=== PATIENT | female | born 1985 | race Caucasian/White ===

== ENCOUNTER 2017-02-05 12:54 | Emergency (ER) | payer MEDICAID ==
[~2017-02-05] VITALS: Ht 162.6 cm; Wt 63.5 kg
[~2017-02-05 12:54] MED LIST: ALPRAZOLAM0.5 M3 PO; ATIVAN1 M1 PO; BACTRIM DS 8001 TA1 PO; BACTRIM DS 8001 TAB PO; BACTROBAN2% TP; BENADRYL 25MG C25 MG PO; BUPROPION HYDR150 M3 PO; BUSPIRONE HCL10 MG PO; CEFZIL250 MG PO; CELEXA40 MG PO; CEPHALEXIN500 MG PO; CITALOPRAM HYDR20 MG PO; CLARITIN 10MG T10 MG OR; Cephalexin500 MG PO; HYDROCODONE/ACE1 TA5 PO; HYDROCODONE1 TABLET PO; IBUPROFEN400 MG PO; IMODIUM A-D2 MG PO; IRON TABLETS325 MG PO; K-Dur 2020 MEQ PO; LEXAPRO 20 MG T20 MG PO; LORTAB 5/500 501 TAB PO; MIRALAX(PO17 GM/1 PA PO; NICOTINE T21 MG/24 H TD; PHENERGAN 12.12.5 MG PR; PHENERGAN 25MG.25 M1 PO; PRENATAL VITAMI1 TA3 PO; SEROQUEL100 MG PO; SEROQUEL25 MG PO; SEROQUEL50 MG PO; TOPIRAMATE25 MG PO; VIBRAMYCIN 100100 MG PO; VISTARIL25 MG PO; WELLBUTRIN 75MG75 MG PO; ZITHROMAX Z PA250 MG PO
[2017-02-05 12:59] VITALS: BP 130/89
--- OUTSIDE RECORDS SUMMARY | 2017-02-05 14:06 | External Medical Summary Rpt ---
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 YC 13 10 10 PH DE IN 3 AR RE MA K 50 CY J 0 MG LL C TA BL ET SE 00 08 09 2 30 30 EA 18 MO Ac RO 31 -1 -[address] 68 SE ti QU 00 2- 0- 00 SI 10 S ve EL [address] 51 10 10 EP 25 0 PH HE AR N MG MA A CY TA BL OF ET CY NT HI AN A SE 00 08 08 2 30 30 EA 18 MO Ac RO 31 -1 -[address] 68 SE ti QU 00 2- 2- 00 SI 10 S ve EL [address] 51 10 10 EP 25 0 PH HE AR N MG MA A CY TA BL OF ET CY NT HI AN A 00 07 07 0 8. 2 EA 18 RU Ac 59 -2 -[address] 49 SH ti 10 7- 7- 0 SI 45 ve 34 20 20 DE NE 90 10 10 IL 1 PH C AR MA CY OF CY NT HI AN A SP 00 07 07 1 28 28 EA 18 CL Ac RI 55 -2 -[address] 44 AR ti NT 59 3- 3- 00 SI 74 KE ve EC 01 20 20 DE 65 10 10 DE 28 8 PH RE AR K DA MA J Y CY TA BL OF ET CY NT HI AN A 00 07 07 0 2. 1 EA 18 CL Ac 09 -1 -[address] 33 AR ti 37 3- 3- 0 SI 31 KE ve 16 20 20 DE 93 10 10 DE 3 PH RE AR K MA J CY OF CY NT HI AN A CI 65 05 07 2 30 30 EA 17 MO Ac TA 86 -1 -[address] 55 SE ti LO 20 1- 9- 00 SI 47 S ve LA [address] AM 70 10 10 EP 5 PH HE HB AR N R MA A 40 CY MG OF TA CY BL NT ET HI AN A BU 00 05 07 2 60 30 EA 17 MO Ac LA 18 -1 -[address] 55 SE ti OP 50 1- 9- 00 SI 48 S ve IO [address] N 50 10 10 EP HC 5 PH HE L AR N SR MA A CY 15 0 OF MG CY TA NT BL HI ET AN A SE 00 05 07 2 30 30 EA 17 MO Ac RO 31 -1 -[address] 55 SE ti QU 00 1- 9- 00 SI 49 S ve EL [address] 51 10 10 EP 25 0 PH HE AR N MG MA A CY TA BL OF ET CY NT HI AN A ME 59 07 07 3 1. 90 CL [address] 76 -0 -0 00 IN 92 RP ti OX 24 6- 6- 0 IC 75 EL ve YP 53 20 20 RO 70 10 10 PH GE GE [address] MA LD ER CY R ON E LL 15 C 0 MG /M L ME 50 07 07 0 10 5 CL 21 DUMAS Ac TR 11 -0 -0 .0 IN 92 RP ti ON 10 6- 6- 00 IC 76 EL ve ID 33 20 20 AZ 40 10 10 PH GE OL 1 AR RA E MA LD 50 CY R 0 MG LL C TA BL ET CI 55 03 06 2 30 30 EA 16 MO Ac TA 11 -0 -[address] 58 SE ti LO 10 2- 7- 00 SI 37 S ve LA [address] AM 40 10 10 EP 5 PH HE HB AR N R MA A 40 CY MG OF TA CY BL NT ET HI AN A BU 00 04 06 1 60 30 EA 17 MO Ac LA 18 -1 -[address] 14 SE ti OP 50 2- 7- 00 SI 92 S ve IO [address] N 56 10 10 EP HC 0 PH HE L AR N SR MA A CY 15 0 OF MG CY TA NT BL HI ET AN A SE 00 05 06 2 30 30 EA 17 MO Ac RO 31 -1 -[address] 55 SE ti QU 00 1- 7- 00 SI 49 S ve EL [address] 51 10 10 EP 25 0 PH HE AR N MG MA A CY TA BL OF ET CY NT HI AN A CI 55 05 05 2 30 30 EA 17 MO Ac TA 11 -1 -[address] 55 SE ti LO 10 1- 1- 00 SI 47 S ve LA [address] AM 40 10 10 EP 5 PH HE HB AR N R MA A 40 CY MG OF TA CY BL NT ET HI AN A BU 00 05 05 2 60 30 EA 17 MO Ac LA 18 -1 -[address] 55 SE ti OP 50 1- 1- 00 SI 48 S ve IO [address] N 56 10 10 EP HC 0 PH HE L AR N SR MA A CY 15 0 OF MG CY TA NT BL HI ET AN A SE 00 05 05 2 30 30 EA 17 MO Ac RO 31 -1 -[address] 55 SE ti QU 00 1- 1- 00 SI 49 S ve EL [address] 51 10 10 EP 25 0 PH HE AR N MG MA A CY TA BL OF ET CY NT HI AN A 00 04 04 0 15 3 EA 17 WE Ac 59 -3 -[address] 41 HR ti 10 0- 0- 00 SI 87 MA ve 34 20 20 DE N 90 10 10 II 1 PH I AR WI MA LL CY IA M OF E CY NT HI AN A CE 00 04 04 0 40 10 EA 17 WE Ac PH 09 -3 -[address] 41 HR ti AL 33 0- 0- 00 SI 88 MA ve EX 14 20 20 DE N IN 70 10 10 II 5 PH I 50 AR WI 0 MA LL MG CY IA M CA OF E PS UL CY E NT HI AN A 00 04 04 0 20 10 EA 17 WE Ac 90 -3 -[address] 41 HR ti 42 0- 0- 00 SI 89 MA ve 72 20 20 DE N 54 10 10 II 0 PH I AR WI MA LL CY IA M OF E CY NT HI AN A 00 04 04 0 14 7 EA 17 MO Ac 90 -2 -[address] 34 SE ti 42 6- 6- 00 SI 02 S ve [address] 54 10 10 EP 0 PH HE AR N MA A CY OF CY NT HI AN A CI 55 03 04 2 30 30 EA 16 MO Ac TA 11 -0 -[address] 58 SE ti LO 10 2- 2- 00 SI 37 S ve LA [address] AM 40 10 10 EP 5 PH HE HB AR N R MA A 40 CY MG OF TA CY BL NT ET HI AN A BU 00 04 04 0 60 30 EA 17 MO Ac SP 59 -1 -[address] 14 SE ti IR 10 2- 2- 00 SI 91 S ve ON [address] E 70 10 10 EP HC 1 PH HE L AR N 5 MA A MG CY TA OF BL ET CY NT HI AN A BU 00 04 04 1 60 30 EA 17 MO Ac LA 18 -1 -[address] 14 SE ti OP 50 2- 2- 00 SI 92 S ve IO [address] N 56 10 10 EP HC 0 PH HE L AR N SR MA A CY 15 0 OF MG CY TA NT BL HI ET AN A 00 04 04 0 16 2 EA 17 AL Ac 59 -0 -[address] 13 LR ti 10 9- 9- 00 SI 66 AN ve 34 20 20 DE 90 10 10 JR 1 PH AR CH MA AR CY LE S OF F CY NT HI AN A AM 60 04 04 0 10 5 EA 17 AL Ac OX 43 -0 -[address] 13 LR ti -C 20 9- 9- 00 SI 67 AN ve LA 06 20 20 0 DE V 50 10 10 JR 25 0 PH 0- AR CH 62 MA AR .5 CY LE S MG OF F /5 CY ML NT HI CAMARILLO AN S A CI 00 03 03 2 30 30 EA 16 MO Ac TA 37 -0 -[address] 58 SE ti LO 86 2- 2- 00 SI 37 S ve LA [address] AM 30 10 10 EP 5 PH HE HB AR N R MA A 40 CY MG OF TA CY BL NT ET HI AN A SE 00 03 03 0 30 30 EA 16 MO Ac RO 31 -0 -[address] 58 SE ti QU 00 2- 2- 00 SI 38 S ve EL [address] 81 10 10 EP 50 0 PH HE AR N MG MA A CY TA BL OF ET CY NT HI AN A FL 00 02 02 00 1. 1 WA 70 MC Ac UC 17 -1 -2 00 L- 58 KE ti ON 25 2- 6- 0 MA 29 NC ve AZ 41 20 20 RT 4 E OL 21 10 10 JR E 1 PH 15 AR WI 0 MA LL MG CY IA M TA #5 F BL 91 ET CI 55 01 01 00 30 30 WA 70 No Ac TA 11 -1 -2 .0 L- 55 t ti LO 10 9- 8- 00 MA 05 Av ve LA 34 20 20 RT 9 ai AM 43 10 10 la 0 PH bl HB AR e R MA 40 CY MG #5 91 TA BL ET CI 55 11 12 00 30 30 WA 70 No Ac TA 11 -2 -3 .0 L- 51 t ti LO 10 0- 1- 00 MA 42 Av ve LA 34 20 20 RT 4 ai AM 43 09 09 la 0 PH bl HB AR e R MA 40 CY MG #5 91 TA BL ET CI 55 11 12 00 30 30 EA 15 No Ac TA 11 -0 -[address] 02 t ti LO 10 6- 3- 00 SI 49 Av ve LA 34 20 20 DE ai AM 40 09 09 la 1 PH bl HB AR e R MA 40 CY MG OF CY TA NT BL HI ET AN A ME 50 11 11 00 14 7 EA 15 CL Ac TR 11 -0 -[address] 02 AR ti ON 10 6- 9- 00 SI 68 KE ve ID 33 20 20 DE AZ 40 09 09 DE OL 1 PH RE E AR K 50 MA J 0 CY MG OF TA CY BL NT ET HI AN A CI 55 11 11 00 15 30 EA 14 No Ac TA 11 -0 -[address] 99 t ti LO 10 4- 9- 00 SI 22 Av ve LA 34 20 20 DE ai AM 40 09 09 la 1 PH bl HB AR e R MA 40 CY MG OF CY TA NT BL HI ET AN A CI 00 10 11 00 15 30 GE 29 No Ac TA 37 -2 -0 .0 NO 32 t ti LO 86 0- 5- 00 A 3 Av ve LA 23 20 20 HE ai AM 30 09 09 AL la 5 TH bl HB CA e R RE 40 OF MG KE TA NT BL UC ET KY L 00 10 10 00 8. 2 EA 14 RU Ac 59 -0 -[address] 55 SH ti 10 5- 2- 0 SI 60 ve 34 20 20 DE NE 90 09 09 IL 1 PH C AR MA CY OF CY NT HI AN A RA 64 08 09 01 60 30 EA 13 CL Ac NI 67 -1 -[address] 82 AR ti TI 90 2- 4- 00 SI 29 KE ve DI 90 20 20 DE NE 60 09 09 DE 3 PH RE 15 AR K 0 MA J MG CY TA OF BL CY ET NT HI AN A 59 09 09 00 30 30 EA 14 CL Ac 63 -0 -[address] 16 AR ti 00 8- 4- 00 SI 88 KE ve 41 20 20 DE 69 09 09 DE 0 PH RE AR K MA J CY OF CY NT HI AN A RA 64 08 08 00 60 30 EA 13 CL Ac NI 67 -1 -[address] 82 AR ti TI 90 2- 7- 00 SI 29 KE ve DI 90 20 20 DE NE 60 09 09 DE 3 PH RE 15 AR K 0 MA J MG CY TA OF BL CY ET NT HI AN A 00 06 07 00 12 3 EA 13 CL Ac 40 -2 -[address] 29 AR ti 62 7- 6- 00 SI 54 KE ve 04 20 20 DE 11 09 09 DE 0 PH RE AR K MA J CY OF CY NT HI AN A NA 00 05 05 00 14 7 EA 12 WR Ac LA 09 -0 -[address] 64 IG ti OX 30 7- 1- 00 SI 93 HT ve EN 14 20 20 DE 90 09 09 AR 50 1 PH DY 0 AR C MG MA CY TA BL OF ET CY NT HI AN A CY 00 05 05 00 21 7 EA 12 WR Ac CL 59 -0 -[address] 64 IG ti OB 15 7- 1- 00 SI 92 HT ve EN 65 20 20 DE ZA 80 09 09 AR LA 1 PH DY IN AR C E MA 10 CY MG OF CY TA NT BL HI ET AN A 65 04 05 00 30 30 EA 12 CL Ac 16 -3 -[address] 55 AR ti 20 0- 7- 00 SI 44 KE ve 40 20 20 DE 61 09 09 DE 1 PH RE AR K MA J CY OF CY NT HI AN A 00 03 03 00 9. 3 EA 11 CL Ac 60 -1 -[address] 92 AR ti 35 6- 6- 0 SI 82 KE ve 14 20 20 DE 12 09 09 DE 1 PH RE AR K MA J CY OF CY NT HI AN A NI 00 03 03 00 20 10 EA 11 CL Ac TR 37 -1 -[address] 92 AR ti OF 83 6- 6- 00 SI 80 KE ve UR 42 20 20 DE AN 20 09 09 DE TO 1 PH RE IN AR K MA J MO CY NO -M OF CR CY NT 10 HI 0 AN MG A 60 02 03 00 18 6 EA 11 RI Ac 25 -2 -[address] 63 SH ti 80 6- 2- 00 SI 69 ER ve 23 20 20 0 DE 91 09 09 RI 6 PH CH AR AR MA D CY OF CY NT HI AN A 68 03 03 00 10 10 EA 11 MA Ac 82 -0 -[address] 70 RT ti 00 2- 2- 00 SI 80 IN ve 01 20 20 0 DE J 91 09 09 7 PH MA AR NG MA AN CY MD OF CY PS NT C HI AN A 59 01 02 00 30 30 EA 11 CL Ac 63 -2 -[address] 19 AR ti 00 2- 2- 00 SI 91 KE ve 41 20 20 DE 43 09 09 DE 5 PH RE AR K MA J CY OF CY NT HI AN A 59 02 02 00 30 30 EA 11 CL Ac 63 -0 -[address] 35 AR ti 00 5- 2- 00 SI 26 KE ve 41 20 20 DE 19 09 09 DE 0 PH RE AR K MA J CY OF CY NT HI AN A 60 02 03 00 18 4 EA 96 No Ac 25 -0 -[address] 71 t ti 80 8- 6- 00 SI 90 Av ve 23 20 20 0 DE ai 91 08 08 la 6 PH bl AR e MA CY OF CY NT HI AN A 60 02 03 00 18 5 EA 96 No Ac 25 -2 -[address] 91 t ti 80 2- 6- 00 SI 55 Av ve 23 20 20 0 DE ai 91 08 08 la 6 PH bl AR e MA CY OF CY NT HI AN A 49 02 03 00 20 5 EA 96 No Ac 88 -0 -[address] 71 t ti 40 8- 6- 00 SI 91 Av ve 77 20 20 DE ai 80 08 08 la 5 PH bl AR e MA CY OF CY NT HI AN A AZ 00 02 03 00 6. 6 EA 96 No Ac IT 09 -2 -[address] 91 t ti HR 37 2- 6- 0 SI 54 Av ve OM 14 20 20 DE ai YC 61 08 08 la IN 8 PH bl AR e 25 MA 0 CY MG OF TA CY BL NT ET HI AN A 49 01 03 00 90 30 EA 96 No Ac 88 -1 -[address] 36 t ti 40 5- 5- 00 SI 18 Av ve 77 20 20 DE ai 90 08 08 la 1 PH bl AR e MA CY OF CY NT HI AN A CY 00 01 03 00 30 10 EA 96 No Ac CL 59 -1 -[address] 36 t ti OB 13 5- 5- 00 SI 19 Av ve EN 25 20 20 DE ai ZA 60 08 08 la LA 1 PH bl IN AR e E MA 5 CY MG OF TA CY BL NT ET HI AN A NC 50 01 03 00 1. 1 TH 19 No Ac RE 41 -0 -2 00 ER 78 t ti NA 90 2- 4- 0 A 14 Av ve 42 20 20 CO 5 ai SY [address] 1 IN bl EM C e Vital Signs 04-17-2013 06:50 Name Value Interpretat Reference Comment ion Range Weight 144 [lb_av] Measured Weight 65.318 kg Measured Results Labs Lab Lab Date Result Refere Interp Status Commen Order Detail nces retati t Range on pH BldCo (04-17-2013 07:23) pH 7.37 7.35-7. complet BldCo 013 UNK 45 ed 07:23 CBC with AUTO DIFF (04-17-2013 04:05) WBC # 11.6 4.8-10. complet Bld 013 K/MM3 8 ed Auto 04:05 RBC # 3.74 4.2-5.4 complet Bld 013 M/mm3 ed Auto 04:05 Hgb 12.0 12.2-16 complet Bld-mCn 013 g/dL .2 ed c 04:05 Hct Fr 34.2 % 37.0-47 complet Bld 013 .0 ed 04:05 MCV RBC 91.3 fl 82.2-97 complet 013 .8 ed 04:05 MCH RBC 32.0 pg 27-31.2 complet Qn 013 ed Auto 04:05 MEAN 35.0 31.8-35 complet CORPUSC 013 g/dl .4 ed ULAR 04:05 HGB CONC RDW RBC 14.0 % 11.5-17 complet Auto 013 .5 ed 04:05 Platele 228 142-424 complet t Bld 013 K/mm3 ed Ql 04:05 Manual MEAN 7.9 fl 7.4-10. complet PLATELE 013 4 ed T 04:05 VOLUME Granulo 09-12-2 70.6 % 37.0-80 complet cytes 013 .0 ed Fr Bld 04:05 Auto LYMPH % -12-2 21.4 % 10-50.0 complet 013 ed 04:05 Monocyt 09-12-2 6.2 % 1.7-9.3 complet es Fr 013 ed Bld 04:05 Auto Eosinop 09-12-2 1.6 % 0.1-12. complet hil Fr 013 0 ed Bld 04:05 Auto Basophi 09-12-2 0.2 % 0.1-2.0 complet ls Fr 013 ed Bld 04:05 Auto Granulo 09-12-2 8.2 1.8-7.8 complet cytes # 013 K/mm3 ed Bld 04:05 Auto Lymphoc -12-2 2.5 0.7-4.5 complet ytes Fr 013 K/mm3 ed Bld 04:05 Auto Monocyt -12-2 0.7 0.1-1.0 complet es # 013 K/mm3 ed Bld 04:05 Auto Eosinop -12-2 0.2 0.0-0.4 complet hil # 013 K/mm3 ed Bld 04:05 Auto Basophi 09-12-2 0.0 0-0.2 complet ls # 013 K/MM3 ed Bld 04:05 Auto URINALYSIS/COMPLETE (04-17-2013 03:55) URINE 12-2 YELLOW YELLOW complet COLOR 013 ed 03:55 URINE 04-17-2 CLEAR CLEAR complet APPEARA 013 ed NCE 03:55 URINE 04-17-2 NEGATIV NEG complet GLUCOSE 013 E ed - 03:55 DIPSTIC K URINE 12-2 NEGATIV NEG complet BILIRUB 013 E ed IN - 03:55 DIPSTIC K URINE 12-2 NEGATIV NEG complet KETONE 013 E mg/dL ed 03:55 URINE 12-2 1.010 1.005-1 complet SPECIFI 013 UNK .030 ed C 03:55 GRAVITY URINE 12-2 TRACE-I NEG complet BLOOD 013 NTACT ed 03:55 URINE 04-17-2 5.5 UNK 5.0-8.5 complet PH 013 ed 03:55 URINE 09-12-2 NEGATIV NEG complet PROTEIN 013 E mg/dL ed - 03:55 DIPSTIC K URINE 04-17-2 0.2 NEG complet UROBILI 013 E.U./dL ed NOGEN - 03:55 DIPSTIC K URINE 04-17-2 NEGATIV NEG complet NITRATE 013 E ed - 03:55 DIPSTIC K URINE 04-17-2 NEGATIV NEG complet LEUK 013 E ed ESTERAS 03:55 E URINE 04-17-2 3-5 0 complet RBC 013 rbc/hpf ed 03:55 URINE -12-2 OCC O complet WBC 013 wbc/hpf ed 03:55 URINE --2 10-20 0-5 complet SQUAMOU 013 #/hpf ed S CELLS 03:55 URINE 04-17-2 OCC O complet BACTERI 013 ed A 03:55 URINE 04-17-2 OCC OCC complet MUCUS 013 ed 03:55 AMNISURE RUPTURE TEST (04-17-2013 03:27) AMNISUR 04-17- POSITIV complet E 013 E- ed 03:27 RUPTURE RUPTURE D TEST Procedures Procedure DOS Code Location Performer Comment RADIOLOGI 70008 PSYCHIATRIC EXAM 7 MEDICAL CHEST 2 IMAGING VIEWS ASS FRONTAL&L ATERAL RADIOLOGI 66384 PSYCHIATRIC 7 MEDICAL EXAMINATI [place] [address] [place] ALL ABDOMINAL 6 MEDICAL REAL IMAGING TIME ASS W/IMAGE LIMITED URNLS DIP 21255 [facility] CAROLYN 6 PHYSICIAN STONE STICK/TAB S GROUP PA-C SAMANTHA LET RGNT NON-AUTO W/O MICRSCP BLOOD 52039 [facility] COMPLETE INC INC AUTO&AUTO DIFRNTL WBC COLLECTIO 72150 [facility] N VENOUS 6 [facility] BLOOD INC INC VENIPUNCT URE COMPREHEN 86562 [facility] SIVE 6 [facility] METABOLIC INC INC PANEL RADEX 28781 [facility] SPINE 6 [facility] LUMBOSACR INC INC AL MINIMUM 4 VIEWS DRUG TST G0477 [facility] PRESUMP;C 6 [facility] PBL BEING INC INC READ DC OPT OBV ONLY SEDIMENTA 74962 [facility] TION RATE 6 [facility] RBC INC INC NON-AUTOM ATED RADEX 56950 [facility] [place] ALL SPINE 6 MEDICAL LUMBOSACR IMAGING AL 2/[address] [place] [address] [facility] ABDOMEN & 6 [facility] PELVIS INC INC W/O CONTRAST MATERIAL RADEX ABD 62790 [facility] COMPL 5 [facility] AQT ABD INC INC W/S/E/D VIEWS 1 VIEW CH RADEX 90413 [facility] ABDOMEN 1 5 [facility] INC INC ANTEROPOS TERIOR VIEW RADEX 07019 [facility] [place]AL[place] FIOR ABDOMEN 1 5 RADIOLOGY ANTEROPOS TERIOR VIEW AMB A0427 [facility] SERVICE 5 AMBULANCE AMBULANCE ALS SERVICE SERVICE EMERGENCY TRANSPORT LEVEL 1 GROUND A0425 [facility] MILEAGE 5 AMBULANCE AMBULANCE PER SERVICE SERVICE STATUTE MILE AMB A0427 [facility] SERVICE 5 AMBULANCE AMBULANCE ALS SERVICE SERVICE EMERGENCY TRANSPORT LEVEL 1 GROUND A0425 [facility] MILEAGE 5 AMBULANCE AMBULANCE PER SERVICE SERVICE STATUTE MILE INS TEMP 85800 JUAN GREGG NDJOSÉG 5 PHYSICIAN FOR BLADDER S, PLLC CATHETER SIMPLE RADIOLOGI 75871 [facility] [place] ALL C 5 MEDICAL EXAMINATI IMAGING ON CHEST ASS SINGLE VIEW FRONTAL AMB A0427 [facility] SERVICE 5 AMBULANCE AMBULANCE ALS SERVICE SERVICE EMERGENCY TRANSPORT LEVEL 1 GROUND A0425 [facility] MILEAGE 5 AMBULANCE AMBULANCE PER SERVICE SERVICE STATUTE MILE ANTIBODY 54752 [facility] HELICOBAC 5 [facility] [place] [address] [facility] INFUSION 5 [facility] THERAPY INC INC PROPHYLAX IS/DX EA HOUR LAPAROSCO 11959 [facility] EMANUEL PY W/PLMT 5 PHYSICIAN BROOKS S GROUP OCCLUSION DEVICE OVIDUCTS ANES IPER 67353 [facility] JANE LWR ABD 5 ANESTH W/LAPS OF THE TUBAL BLUE LIGATION/ TRANSECT GONADOTRO 13290 [facility] PIN 5 [facility] CHORIONIC INC INC QUALITATI VE BLOOD 97299 [facility] COUNT 5 [facility] COMPLETE INC INC AUTO&AUTO DIFRNTL WBC COLLECTIO 39590 [facility] N VENOUS 5 [facility] BLOOD INC INC VENIPUNCT URE BASIC 39660 [facility] METABOLIC 5 [facility] PANEL INC INC CALCIUM TOTAL REMOVAL 77464 [facility] EMANUEL NON-BIODE 5 PHYSICIAN BROOKS GRADABLE S GROUP DRUG DELIVERY IMPLANT RADEX 47283 [place] ANKLE 5 MEDICAL ALESHA COMPLETE IMAGING MINIMUM 3 ASS VIEWS INCISION 92210 JUAN AGUIRRE AUGUSTINA & 5 PHYSICIAN DRAINAGE S, PLLC ABSCESS COMPLICAT ED/MULTIP LE COMPREHEN 47755 [facility] SIVE 5 [facility] [place] [address] J[facility]VIS MELLOON FREE 5 [facility] [place] [address] [facility] THYROID 5 [facility] STIMULATI INC INC NG HORMONE TSH 25 31977 [facility] HYDROXY 5 [facility] INCLUDES INC INC FRACTIONS IF PERFORMED BLOOD 46280 [facility] COUNT 5 [facility] COMPLETE INC INC AUTO&AUTO DIFRNTL WBC INCISION 95716 [facility] SCHULSTAD & 5 PHYSICIAN CAM DRAINAGE S GROUP ABSCESS COMPLICAT ED/MULTIP LE INITIAL 02781 [facility] INPATIENT 5 PHYSICIAN CAM CONSULT S GROUP NEW/ESTAB PT 40 MIN URINE 83263 [facility] EMANUEL 5 PHYSICIAN BROOKS TEST S GROUP VISUAL COLOR CMPRSN METHS INSJ 11274 [facility] EMANUEL NON-BIODE 5 PHYSICIAN BROOKS GRADABLE S GROUP DRUG DELIVERY IMPLANT ETONOGEST J7307 [facility] EMANUEL REL 5 PHYSICIAN BROOKS CNTRACPT S GROUP IMPL SYS INCL IMPL & SPL NEURAXIAL 67057 [facility] 5 ANESTH CHRISTINA ANALG/ANE OF THE S PLND BLUE VAGINAL DELIVERY RADIOLOGI 58298 [place]AN[place] C 5 MEDICAL AUGUSTINA EXAMINATI IMAGING ON CHEST ASS SINGLE VIEW FRONTAL RADEX 79699 KAI JEANINE ABDOMEN 1 5 MEDICAL AUGUSTINA IMAGING ANTEROPOS ASS TERIOR VIEW VAGINAL 16949 [facility] CASTELLANOS DELIVERY 5 PHYSICIAN BROOKS ONLY S GROUP W/POSTPAR CHIO CARE IAADIADOO 55382 COMBINED COMBINED 5 PHYSICIAN PHYSICIAN STREPTOCO S LA S LA CCUS GROUP B HANDLG&/O 18641 [facility] CASTELLANOS R CONVEY 5 PHYSICIAN BROOKS OF SPEC S GROUP FOR TR OFFICE TO LAB DRUG SCR G0434 [facility] CASTELLANOS NOT 5 PHYSICIAN BROOKS CHROMATOG S GROUP RAPHIC; ANY NUMBER PT ENC IADNA 63177 [facility], CHLAMYDIA 4 [facility] TRACHOMAT IS AMPLIFIED PROBE TQ IADNA 91635 [facility], [facility] NEISSERIA 4 [facility] GONORRHOE AE AMPLIFIED PROBE TQ CYTP 41376 [facility], CERVICAL/ 4 [facility] VAGINAL REQ INTERP PHYSICIAN CYTP C/V 65057 [facility], AUTO THIN 4 [facility] LYR PREPJ SCR MNL RESCR PHYS NEURAXIAL 77085 [facility] LABOR 3 ANALG/ANE S PLND VAGINAL DELIVERY VAGINAL 11488 [facility] DELIVERY 3 [facility] ONLY CLINIC OF W/POSTPAR [place] CHIO CARE 66188 [facility] NONSTRESS 3 [facility] TEST [facility] [place] CUL BACT 31857 COMBINED COMBINED XCPT 3 PHYSICIAN PHYSICIAN URINE S LA S LA BLOOD/STO OL AEROBIC ISOL 47429 EMNAUEL [facility] BIOPHYSIC 3 BROOKS BROOKS AL PROFILE W/O NON-STRES S TESTING DOPPLER 41633 EMANUEL CASTELLANOS VELOCIMET 3 [facility] RY UMBILICAL ARTERY US PREG 63784 EMANUEL CASTELLANOS UTERUS 3 [facility] REAL TIME F/U TRNSABDL PER FETUS 08707 EMANUEL CASTELLANOS NONSTRESS 3 [facility] TEST US PREG 13445 EMANUEL CASTELLANOS UTERUS 3 [facility] REAL TIME F/U TRNSABDL PER FETUS DOPPLER 50289 EMANUEL CASTELLANOS VELOCIMET 3 [facility] RY UMBILICAL ARTERY 34823 EMANUEL CASTELLANOS BIOPHYSIC 3 [facility] AL PROFILE W/O NON-STRES S TESTING GLUCOSE 56239 EMANUEL CASTELLANOS TOLERANCE 3 [facility] TEST GTT 3 SPECIMENS CUL BACT 21798 QUEST QUEST XCPT 3 DIAGNOSTI DIAGNOSTI URINE CS CS BLOOD/STO OL AEROBIC ISOL US PREG 36806 EMANUEL CASTELLANOS UTERUS 3 [facility] AFTER 1ST TRIMEST 1 GESTATION US PREG 04094 EMANUEL CASTELLANOS UTERUS 3 [facility] AFTER 1ST TRIMEST GESTATION IADNA 65114 PICKLESIM PICKLESIM NEISSERIA 3 ER JR RAMSES ER JR RAMSES GONORRHOE AE AMPLIFIED PROBE TQ IADNA 60671 P[facility]IM PICKLESIM CHLAMYDIA 3 ER JR RAMSES ER JR RAMSES TRACHOMAT IS AMPLIFIED PROBE TQ CYTP C/V 50199 PICKLESIM PICKLESIM AUTO THIN 3 ER JR RAMSES ER JR RAMSES LYR PREPJ SCR MNL RESCR PHYS SMR PRIM 65375 EMANUEL CASTELLANOS SRC WET 2 [facility] NFCT AGT ANESTHESI 42000 COMMUNITY REAGAN A VAGINAL 2 ANESTH [place]RI[place] OF THE PROCEDURE BLUE W/[place] [address] PATHOLOGY ESCOBEDO SURG 2 & FIOR PATHOLOGY CYTOLOGY LAB GROSS&CARLY ROSCOPIC EXAM THERAPEUT 45375 [facility] IC [facility] INJECTION INC INC IV PUSH EACH NEW DRUG BLOOD 40507 [facility] COUNT 2 [facility] COMPLETE INC INC AUTO&AUTO DIFRNTL WBC URNLS DIP 50409 [facility] STICK/TAB INC [place] [address] [facility] INFUSION 2 [facility] THERAPY/P INC INC ROPHYLAXI S /DX 1ST TO 1 HR GONADOTRO 98676 [facility] PIN [facility] CHORIONIC INC INC QUANTITAT PEEWEE US PREG 49681 FRANKIEAlban JEANINE UTERUS 2 MEDICAL [facility]UGUST[place] REAL TIME IMAGING W/IMAGE ASS DCMTN TRANSVAG CULTURE 64190 [facility] BACTERIAL [facility] INC INC QUANTTATI VE COLONY COUNT URINE BLOOD 15612 [facility] TYPING 2 [facility] SEROLOGIC INC INC RH (D) URINE 22842 [facility] TEST INC [place] [address] [facility] INFUSION 2 [facility] THERAPY INC INC PROPHYLAX IS/DX EA HOUR [place] MISSED 61201 EMANUEL CASTELLANOS 2 [facility] FIRST TRIMESTER SURGICAL RADEX 50522 [facility] [place] SCALF FIOR FOREARM 2 [place] [address] JYOTSNA GOYAL ULNAR 2 GAR GAR SHAFT FRACTURE W/O MANIPULAT ION RADEX 40476 [facility] [place] [facility] ANKLE 2 RADIOLOGY COMPLETE MINIMUM 3 VIEWS RADEX 37654 [facility] [place]AL[place] FI[facility] RIBS UNI 2 RADIOLOGY W/POSTERO ANT CH MINIMUM 3 VIEWS RADEX 52303 [place] JEANINE FOREARM 2 2 MEDICAL [place]UG[place] VIEWS IMAGING ASS WRIST L3908 MONET MONET HAND 2 HOME HOME ORTHOSIS MEDICAL MEDICAL EXT EQUIPME EQUIPME CONTROL COCK-UP PREFAB RADEX 30157 [place] JE[place] FOREARM 2 2 MEDICAL [place] VIEWS IMAGING ASS URINE 71092 [facility] TEST INC INC VISUAL COLOR CMPRSN METHS INCISION 01717 [facility] & 2 [facility] DRAINAGE INC INC ABSCESS COMPLICAT ED/MULTIP LE RADEX 09754 [facility] FOREARM 2 2 [facility] [place] [address] PETTEY PETTEY ULNAR 2 JAM JAM SHAFT FRACTURE W/O MANIPULAT ION RADEX 78588 [place] JE[place] SHOULDER 2 MEDICAL [place]UG[place] COMPLETE IMAGING MINIMUM 2 ASS VIEWS RADEX 45545 [facility] FOREARM 2 2 Y Y VIEWS HOSPITAL HOSPITAL RADEX 47029 [facility] ANKLE 2 Y Y COMPLETE HOSPITAL HOSPITAL MINIMUM 3 VIEWS RADEX 44835 EZEGOMER EZEGOMER ANKLE 2 Y JUS Y JUS COMPLETE MINIMUM 3 VIEWS RADEX 72444 MONTGOMER EZEGOMER FOOT 2 Y JUS Y JUS COMPLETE MINIMUM 3 VIEWS RADIOLOGI 23032 EZEGOPILY LOOGOMER C 2 Y JUS Y JUS EXAMINATI ON FEMUR 2 VIEWS RADEX 80235 EZEGOMER EZEGOMER ELBOW 2 Y JUS Y JUS COMPLETE MINIM[address] [place] [address] [place] D[place] ANGIOGRAP 2 MEDICAL HY CHEST SERV W/CONTRAS FOUNDAT[place] T/[place] [address] [place] CERVICAL 2 MEDICAL FLA SPINE W/[place] [address] [place] DION ABDOMEN & 2 MEDICAL PELVIS SERV W/CONTRAS FOUNDATIO T N MATERIAL AMB A0427 [facility] SERVICE 2 [place]AY[place] FAYETTE ALS URBAN URBAN EMERGENCY COGOVT COGOVT TRANSPORT LEVEL 1 RADIOLOGI 83773 EZEGOMER EZEGOMER C 2 Y JUS Y JUS EXAMINATI ON KNEE 3 VIEWS RADIOLOGI 79354 EZEGOMER EZEGOMER C 2 Y JUS Y JUS EXAMINATI [place] [address] [place] HEAD/BRAI 2 MEDICAL FLA N W/[place] [address] [place] THORACIC 2 MEDICAL FLA SPINE W/O SERV CONTRAST FOUNDATIO MATERIAL N GROUND A0425 [facility] MILEAGE 2 FAYETTE FAYETTE PER URBAN URBAN STATUTE COGOVT COGOVT MILE RADIOLOGI 79670 EZEGOMER EZEGOMER C 2 Y JUS Y JUS EXAMINATI ON TIBIA & FIBULA 2 VIEWS RADIOLOGI 62797 MONTGOMER MONTGOMER C 2 Y JUS Y JUS EXAMINATI ON PELVIS 1/2 VIEWS RADEX 21310 EZEGOMER EZEGOMER SHOULDER 2 Y JUS Y JUS COMPLETE MINIMUM [address] LUMBAR [address] [place] SPINE 2 MEDICAL FLA W/O SERV CONTRAST FOUNDATIO MATERIAL N RADEX HIP 79340 [place] LOOGOMER 2 Y JUS Y JUS UNILATERA L COMPLETE MINIMUM 2 VIEWS RADEX 71280 RAINAMER EZEGOMER WRIST 2 Y JUS Y JUS COMPLETE MINIMUM 3 VIEWS RADEX 09608 RAINAMER RAINAMER FOREARM 2 2 Y JUS Y JUS VIEWS RADEX 90070 RAINAMER [place]OTA HUMERUS 2 Y JUS Y JUS MINIMUM 2 VIEWS REMOVAL 87741 EMANUEL CASTELLANOS NON-BIODE 2 [facility] GRADABLE DRUG DELIVERY IMPLANT THERAPEUT 47185 [facility] IC 2 [facility] PROPHYLAC INC INC TIC/DX INJECTION SUBQ/IM RADEX 32439 [place] JEANINE ANKLE 2 MEDICAL AUGUSTINA COMPLETE IMAGING MINIMUM 3 ASS VIEWS RADEX 77357 [place] JEANINE FOOT 2 MEDICAL AUGUSTINA COMPLETE IMAGING MINIMUM 3 ASS VIEWS IAADI 90530 [facility] INFFLUENZ 2 [facility] A A VIRUS INC INC IAADI 97341 J[facility] INFLUENZA 2 [facility] [place] [address] JARVIS [facility] STREPTOCO 2 [facility] [place] [place] [address] EMANUEL CASTELLANOS TRANSVAGI 2 [facility] NAL ETONOGEST J7307 EMANUEL CASTELLANOS REL 1 [facility] CNTRACPT IMPL SYS INCL IMPL & SPL INSERTION 16604 EMANUEL CASTELLANOS 1 [facility] IMPLANTAB LE CONTRACEP TIVE CAPSULES URINE 09327 EMANUEL CASTELLANOS 1 [facility] TEST VISUAL COLOR CMPRSN METHS CUL BACT 11687 COMBINED COMBINED XCPT 1 PHYSICIAN PHYSICIAN URINE S LA S LA BLOOD/STO OL AEROBIC ISOL ANTIBODY 12549 COMBINED COMBINED CHLAMYDIA 1 PHYSICIAN PHYSICIAN S LA S LA ANTIBODY 76560 COMBINED COMBINED CHLAMYDIA 1 PHYSICIAN PHYSICIAN S LA S LA CUL BACT 78891 COMBINED COMBINED XCPT 1 PHYSICIAN PHYSICIAN URINE S LA S LA BLOOD/STO OL AEROBIC ISOL URINE 47226 [facility] 1 [facility] TEST INC INC VISUAL COLOR CMPRSN METHS CYTP 22098 PATHOLOGY PATHOLOGY CERV/VAG 1 & & AUTO THIN CYTOLOGY CYTOLOGY LAYER LAB LAB PREP MNL SCREEN IADNA 32526 J[facility] CHLAMYDIA 1 [facility] CENTER TRACHOMAT IS AMPLIFIED PROBE TQ URINE 53108 JARVIS CONLEY 1 [facility] CENTER VISUAL COLOR CMPRSN METHS CONTRACEP A4267 J[facility]VIS [facility] TIVE 1 [facility] CENTER CONDOM MALE EACH IADNA 22083 J[facility] NEISSERIA 1 [facility] AE AMPLIFIED PROBE TQ DME A9900 J[facility]VIS [facility] SUP/ACCES 1 [facility] S/SRV-COM CENTER CENTER TONY/OTH HCPCS COMPREHEN 06424 J[facility] SIVE 1 [facility] METABOLIC INC INC PANEL AMB A0427 [facility]ICE 1 AMBULANCE AMBULANCE ALS SERVICE SERVICE [place]ERGENC[place] L[place] 1 [place] [address] J[facility] INFUSION 1 [facility] THERAPY INC INC PROPHYLAX IS/DX EA HOUR BLOOD 19444 [facility] COUNT 1 [facility] COMPLETE INC INC AUTO&[place] [address] J[facility] INFUSION 1 [facility] THERAPY/P INC INC ROPHYLAXI S /DX 1ST TO 1 HR ALS A0398 GHASSAN FERRELL ROUTINE 1 AMBULANCE AMBULANCE DISPOSABL SERVICE SERVICE E SUPPLIES GROUND A0425 [facility]ASS[facility] FERRELL MILEAGE 1 AMBULANCE AMBULANCE PER SERVICE SERVICE STATUTE MILE ECG 55901 ALF LAFLEUR ROUTINE 1 EMERGENCY III AVTAR ECG SERVICES W/LEAST 12 LDS I&R ONLY ECG 32381 [facility] ROUTINE 1 [facility] ECG INC INC W/LEAST 12 LDS TRCG ONLY W/O I&[place] [address] J[facility] MAGNESIUM 1 [facility] INC INC URINE 61668 [facility] CASTELLANOS 1 [facility] TEST CLINIC OF VISUAL [place] COLOR CMPRSN METHS INCISION 03948 ALF KRAFTMAN & 0 EMERGENCY III AVTAR DRAINAGE SERVICES ABSCESS COMPLICAT ED/MULTIP LE OTH 8604 [facility] INCISION 0 [facility] W/DRAINAG INC INC E SKIN&SUBC UTANEOUS TISSUE CYTP C/V 27903 PATHOLOGY PATHOLOGY AUTO THIN 0 & & LYR CYTOLOGY CYTOLOGY PREPJ SCR LAB LAB MNL RESCR PHYS REMOVAL 27834 [facility] CASTELL[facility] NON-BIODE 0 [facility] DRUG [place] DELIVERY IMPLANT IADNA 18103 A C TRICIA A STREPTOCO 0 TRICIA ZHU CCUS PSC GROUP A QUANTIFIC ATION INCISION 13883 A Domonique CLARKE A & 0 TRICIA ZHU DRAINAGE PSC ABSCESS SIMPLE/SI NGLE ETONOGEST J7307 [facility]OM[facility] CASTELLANOS REL 0 [facility] CNTRACPT CLINIC OF IMPL SYS [place] INCL IMPL & SPL URINE 61749 [facility]OMEN'S CASTELLANOS 0 [facility] OF VISUAL [place] COLOR CMPRSN METHS INSERTION 34474 [facility]OMEN'[facility] CASTELLANOS 0 [facility] IMPLANTAB CLINIC OF LE [place] CONTRACEP TIVE CAPSULES ANTIBODY 20693 COMBINED COMBINED CHLAMYDIA 0 PHYSICIAN PHYSICIAN S LA S LA CUL BACT 39675 COMBINED COMBINED XCPT 0 PHYSICIAN PHYSICIAN URINE S LA S LA BLOOD/STO OL AEROBIC ISOL CUL BACT 81262 COMBINED COMBINED XCPT 0 PHYSICIAN PHYSICIAN URINE S LAB S LAB BLOOD/STO OL AEROBIC ISOL ANTIBODY 42256 COMBINED COMBINED CHLAMYDIA 0 PHYSICIAN PHYSICIAN S LAB S LAB SMR PRIM 58367 [facility] CASTELL[facility]OS, SRC WET 0 [facility] AGT [place] PLLC REMOVAL 93046 [facility] CASTELL[facility], NON-BIODE 0 [facility] CLINIC OF DRUG DELIVERY [place] IMPLANT PLLC CUL BACT 92327 COMBINED COMBINED XCPT 0 PHYSICIAN PHYSICIAN URINE S LAB S LAB BLOOD/STO OL AEROBIC ISOL ANTIBODY 12860 COMBINED COMBINED CHLAMYDIA 0 PHYSICIAN PHYSICIAN S LAB S LAB CUL BACT 94112 J[facility]VIS [facility] AEROBIC 0 [facility] ADDL INC INC METHS DEFINITIV E EA ISOL CUL BACT 20350 [facility] XCPT 0 [facility] URINE INC INC BLOOD/STO OL AEROBIC ISOL OTH 8604 [facility] INCISION 0 [facility] W/DRAINAG INC INC E SKIN&SUBC UTANEOUS TISSUE INCISION 57680 ALF LAFLEUR & 0 EMERGENCY III, DRAINAGE SERVICES MARY CARMEN GONZALEZ COMPLICAT ASSOCIATE ED/MULTIP S LE SUSCEPTIB 68677 [facility] LTY STDY 0 [facility] ANTIMICRB INC INC IAL MICRO/AGA R DILUTJ LAPAROSCO 46889 ALLRAN ALLRAN PIC 0 JR, JR, APPENDECT KATARINA F KATARINA Parker KIERA ANESTHESI 54561 COMMUNITY Rochelle JEAN 0 ANESTH MARY CARMEN Parker [facility] ABD W/L[place] [address] JARVIS JARVIS INFUSION 0 [facility] THERAPY/P INC INC ROPHYLAXI S /DX 1ST TO 1 [place] [address] JARVIS MELLOON INFUSION 0 [facility] THERAPY INC INC PROPHYLAX IS/DX EA HOUR LEVEL III 16259 PATHOLOGY PATHOLOGY SURG 0 & & PATHOLOGY CYTOLOGY CYTOLOGY LAB LAB GROSS&[facility] G0378 JARVIS JARVIS OBSERVATI 0 [facility] ON INC INC SERVICE PER HOUR LAPAROSCO 4701 J[facility]VIS [facility] PIC 0 [facility] APPENDECT INC INC KIERA CT PELVIS 11381 [facility] W/O 0 [facility] CONTRAST INC INC MATERIAL BASIC 79316 [facility] METABOLIC 0 [facility] PANEL INC INC CALCIUM TOTAL COMPREHEN 00107 [facility] SIVE 0 [facility] [place] [address] J[facility] ABDOMEN 0 [facility] W/O INC INC CONTRAST MATERIAL CRITICAL 19247 ALF [facility] 0 EMERGENCY NATALIE ILL/INJUR SERVICES O ED PATIENT ASSOCIATE INIT S 30-74 MIN 3D 44128 J[facility]VIS [facility] RENDERING 0 [facility] INC INC W/INTERP& POSTPROC DIFF WORK STATION URINE 18814 [facility] 0 [facility] TEST INC INC [place] [address] J[facility] LIPASE 0 [facility] INC INC BLOOD 40901 J[facility] COUNT 0 [facility] COMPLETE INC INC AUTO&AUTO DIFRNTL WBC GLUC BLD 45508 J[facility] GLUC MNTR 0 [facility] DEV INC [place] [address] [facility] AMYLASE 0 [facility] INC INC URNLS DIP 12946 [facility] 0 [facility] STICK/TAB INC INC LET REAGENT AUTO MICROSCOP Y URNLS DIP 60749 [facility] 0 [facility] STICK/TAB INC INC LET REAGENT AUTO MICROSCOP Y URINE 48682 [facility] 0 [facility] TEST INC INC VISUAL COLOR CMPRSN METHS CULTURE 86818 J[facility] BACTERIAL 0 [facility] INC INC QUANTTATI VE COLONY COUNT URINE CONTRACEP A4267 JARVIS CONLEY TIVE [address] [place] [address] [facility] CONDOM MALE EACH GLUC BLD 95831 JARVIS [facility] GLUC MNTR 0 [facility] [place] CLEARED FDA SPEC HOME USE CYTP 42139 PATHOLOGY PATHOLOGY CERVICAL/ 0 & & VAGINAL CYTOLOGY CYTOLOGY REQ LAB LAB INTERP PHYSICIAN WET Q0111 JARVIS CONLEY [address] HEALTH INCL PREP CENTER CENTER VAGINAL CERV/SKIN SPECIMENS SMR PRIM 48029 JARVIS CONLEY SRC WET [address] [place] [address] NFCT AGT IADNA 67490 JARVIS CON[facility] CHLAMYDIA [address] [place] [address] CENTER TRACHOMAT IS AMPLIFIED PROBE TQ ALL Q0112 JARVIS CON[facility] POTASSIUM [address] [place] [address] CENTER HYDROXIDE PREPARATI ONS IADNA 72775 J[facility] NEISSERIA 0 [facility]ON[facility] AE AMPLIFIED PROBE TQ CYTP 08640 PATHOLOGY PATHOLOGY CERV/VAG 0 & & AUTO THIN CYTOLOGY CYTOLOGY LAYER LAB LAB PREP MNL SCREEN ETONOGEST J7307 [facility], REL 9 [facility] J CNTRACPT CLINIC OF IMPL SYS INCL IMPL [place] & SPL [facility] CYTP C/V 15581 PATHOLOGY PATHOLOGY AUTO THIN 9 & & LYR CYTOLOGY CYTOLOGY PREPJ SCR LAB LAB MNL RESCR PHYS INSERTION 56948 [facility], 9 [facility] J IMPLANTAB CLINIC OF LE CONTRACEP [place] TIVE [facility] CAPSULES NEURAXIAL 84407 COMMUNITY REAGAN, LABOR 9 ANESTH CHRISTIAN A ANALG/ANE OF THE S PLND [place] VAGINAL DELIVERY CUL BACT 74454 COMBINED COMBINED XCPT 9 PHYSICIAN PHYSICIAN URINE S LAB S LAB BLOOD/STO OL AEROBIC ISOL US PREG 62737 [facility], UTERUS 9 [facility] J AFTER 1ST CLINIC OF TRIMEST [place] GESTATION [facility] THERAPEUT 13093 [facility] IC 9 [facility] PROPHYLAC INC INC TIC/DX INJECTION SUBQ/IM ALPHA-FET 71869 J[facility] OPROTEIN 9 [facility] [place] [address] [facility]VIS [facility] ESTRIOL 9 [facility] INC INC GONADOTRO 50124 JARVIS [facility] PIN 9 [facility] CHORIONIC INC INC QUANTITAT PEEWEE IADNA 76450 CHERRI GAUTAM 9 TRICIA MOREL CCUS PSC GROUP A QUANTIFIC ATION [place] PREG 03776 [facility], UTERUS 9 [facility] Cardoza REAL TIME CLINIC OF W/IMAGE DCMTN [place] TRANSVAG [facility] MOLECULAR 02017 MOLECULAR MOLECULAR DX AMP 9 TARGET PATHOLOGY PATHOLOGY MULTIPLEX LAB LAB 1ST 2 NETWORK NETWORK SEQ INC INC MOLECULAR 61701 MOLECULAR MOLECULAR 9 DIAGNOSTI PATHOLOGY PATHOLOGY CS LAB LAB INTERPRET NETWORK NETWORK ATION & INC INC REPORT IADNA 98173 PATHOLOGY PATHOLOGY NEISSERIA 9 & & CYTOLOGY CYTOLOGY GONORRHOE LAB LAB AE AMPLIFIED PROBE TQ MOLEC 30497 MOLECULAR MOLECULAR SEP&ID HI 9 RESOLU PATHOLOGY PATHOLOGY TQ EACH LAB LAB NUCLEIC NETWORK NETWORK ACID PREP INC INC MOLECULAR 81610 MOLECULAR MOLECULAR DX AMP 9 TARGET PATHOLOGY PATHOLOGY MULTIPLEX LAB LAB EA ADDL NETWORK NETWORK SEQ INC INC MUTATION 71069 MOLECULAR MOLECULAR ID 9 ENZYMATIC PATHOLOGY PATHOLOGY LAB LAB LIG/PRIME NETWORK NETWORK R XTN 1 INC INC SGM EA CYTP C/V 61892 PATHOLOGY PATHOLOGY AUTO THIN 9 & & LYR CYTOLOGY CYTOLOGY PREPJ SCR LAB LAB MNL RESCR PHYS IADNA 35993 PATHOLOGY PATHOLOGY CHLAMYDIA 9 & & CYTOLOGY CYTOLOGY TRACHOMAT LAB LAB IS AMPLIFIED PROBE TQ MOLEC 37184 MOLECULAR MOLECULAR ISOL/XTRJ 9 HP PATHOLOGY PATHOLOGY NUCLEIC LAB LAB ACID EA NETWORK NETWORK TYPE INC INC URINE 85551 DHS/CO JARVIS 9 HEALTH CO HEALTH TEST CENTRAL [place] [facility] [place] [address] J[facility] HEAD/BRAI 8 [facility] N W/O INC INC CONTRAST MATERIAL 3D 98862 J[facility] RENDERING 8 [facility] W/INTERP INC INC & POSTPROCE SS SUPERVISI ON RADEX 48197 [place] NAM, SPINE 8 MEDICAL ERIC P CERVICAL IMAGING 6 OR MORE ASSOCIATE VIEWS S Encounters Encounter Start End Date Code Location Performer Type Date [facility]VIS - 6 6 [facility] OUTPATIEN INC T OFFICE 04549 [facility] PH[facility] STONE T VISIT S GROUP PA-C SAMANTHA 15 MINUTES [facility] JARVIS - 6 6 [facility] OUTPATIEN INC T EMERGENCY 18359 [facility] 6 6 PHYSICIAN DEPARTMEN S, PLLC T VISIT MODERATE SEVERITY HOSPITAL JARVIS - 6 6 [facility] OUTPATIEN INC T EMERGENCY 80209 [facility]VIS 6 6 [facility] DEPARTMEN INC T VISIT LIMITED/M INOR PROB OFFICE 82928 [facility] VANESSA TINAJERO OUTPATIEN 6 6 PHYSICIAN TOMMY T VISIT S GROUP 10 MINUTES [facility] JARVIS - 6 6 [facility] OUTPATIEN INC T OFFICE 31095 [facility] [place] OUTPATIEN 5 5 PHYSICIAN TOMMY T VISIT S GROUP 15 MINUTES EMERGENCY 96002 [facility] 5 5 PHYSICIAN DEPARTMEN S, PLLC T VISIT MODERATE SEVERITY OFFICE 49744 [facility] ALLMECCA JR OUTPATIEN 5 5 PHYSICIAN TOMMY T VISIT S GROUP 10 MINUTES HOSPITAL JARVIS - 5 5 [facility] OUTPATIEN INC T OFFICE 00169 [facility] PHYSICIAN TOMMY T VISIT S GROUP 15 MINUTES EMERGENCY 95861 [facility] DEPT 5 5 PHYSICIAN VISIT S, PLLC HIGH SEVERITY& THREAT FUNCJ EMERGENCY 01515 J[facility]VIS 5 5 [facility] DEPARTMEN INC T VISIT LOW/MODER SEVERITY HOSPITAL JARVIS - 5 5 [facility]EN [facility] EMER[facility] 35464 JUAN HOOVER 5 5 PHYSICIAN Shaun EDUARDO DEPARTMEN S, PLLC T VISIT MODERATE SEVERITY EMERGENCY 11180 JUAN GREGG 5 5 PHYSICIAN FOR DEPARTMEN S, PLLC T VISIT HIGH/URGE NT SEVERITY HOSPITAL JARVIS - 5 5 [facility] - 5 5 [facility] - 5 5 [facility]PATIEN [facility] EMERGENCY 25727 JUAN CARBALLO 5 5 PHYSICIAN RENEE DEPARTMEN S, PLLC T VISIT MODERATE SEVERITY OFFICE 95822 [facility] PHYSICIAN MOUNIKA T VISIT S GROUP 15 MINUTES EMERGENCY 08971 JUAN JACKMAN 5 5 PHYSICIAN DEPARTMEN S, PLLC T VISIT HIGH/URGE NT SEVERITY HOSPITAL JARVIS - 5 5 [facility]PATIEN [facility] T OFFICE 70811 [facility] SCHULSTAD OUTPATIEN 5 5 PHYSICIAN CAM T VISIT S GROUP 10 MINUTES HOSPITAL JARVIS - 5 5 [facility] INPATIENT INC OFFICE 03119 [facility] CASTELLANOS OUTPATIEN 5 5 PHYSICIAN BROOKS T VISIT S GROUP 15 MINUTES OFFICE 97941 A C KILPELA OUTPATIEN 5 5 TRICIA ZHU JEA T VISIT PSC 15 MINUTES Inpatient [facility] Jarvis Castellanos MD (IN) 3 03:09 3 11:50 [facility] OFFICE 02479 EMANUEL CASTELLANOS OUTPATIEN 3 3 [facility] T VISIT 15 MINUTES OFFICE 52630 EMANUEL CASTELLANOS OUTPATIEN 3 3 [facility] T VISIT 15 MINUTES OFFICE 80152 EMANUEL CASTELLANOS OUTPATIEN 3 3 [facility] T VISIT 15 MINUTES OFFICE 14207 CASTELLANOS CASTELLANOS OUTPATIEN 3 3 [facility] T VISIT 15 MINUTES OFFICE 81599 EMANUEL PRINGLEE OUTPATIEN 3 3 [facility] T VISIT 15 MINUTES OFFICE 30089 CASTELLANOS EMANUEL OUTPATIEN 3 3 [facility] T VISIT 15 MINUTES OFFICE 35653 A C KILPELA OUTPATIEN 3 3 TRICIA ZHU JEA T VISIT PSC 15 MINUTES OFFICE 53079 A C KILPELA OUTPATIEN 3 3 TRICIA ZHU JEA T VISIT PSC 15 MINUTES OFFICE 79572 EMANUEL CASTELLANOS OUTPATIEN 3 3 [facility] T VISIT 5 MINUTES OFFICE 32726 A C KILPELA OUTPATIEN 3 3 TRICIA ZHU JEA T VISIT PSC 15 MINUTES OFFICE 31804 EMANUEL CASTELLANOS OUTPATIEN 3 3 [facility] T VISIT 15 MINUTES EMERGENCY 90184 [facility]VIS 2 2 [facility] DEPARTMEN INC T VISIT HIGH/URGE NT SEVERITY HOSPITAL JARVIS - 2 2 [facility]EN [facility] EMERGENCY 87779 MARA LEONEY DEPT 2 2 CARLY CARLY VISIT HIGH SEVERITY& THREAT FUN EMERGENCY 05477 JYOTSNA GOYAL 2 2 [facility] T VISIT HIGH/URGE NT SEVERITY HOSPITAL JARVIS - 2 2 [facility] JARVIS - 2 2 [facility] - 2 2 [facility] EMERGENCY 43865 CIARRA LAFLEUR 2 2 III AVTAR III [facility] T VISIT HIGH/URGE NT SEVERITY EMERGENCY 27863 JARVIS 2 2 [facility] T VISIT MODERATE SEVERITY HOSPITAL JARVIS - 2 2 [facility] UNIVERSIT - 2 2 [facility] EMERGENCY 54286 ANASTACIA GUNN 2 2 [facility] T VISIT FOUNDATIO HIGH/URGE NT SEVERITY PERIODIC 54777 EMANUEL CASTELLANOS PREVENTIV 2 2 [facility] E MED EST PATIENT 18-39 YRS EMERGENCY 86593 JARVIS 2 2 [facility] INC T VISIT MODERATE SEVERITY HOSPITAL JARVIS - 2 2 [facility] 30284 ALF FERREIRA 2 2 EMERGENCY [facility] SERVICES T VISIT HIGH/URGE NT SEVERITY EMERGENCY 62850 CIARRA LAFLEUR 2 2 III [facility]AR [facility] MODERATE SEVERITY EMERGENCY 20602 JARVIS 2 2 [facility] INC T VISIT LOW/MODER SEVERITY HOSPITAL JARVIS - 2 2 [facility] OUTPATIEN INC T OFFICE 79729 LANG GARCIA OUTPATIEN 2 2 T VISIT 15 MINUTES OFFICE 61547 EMANUEL CASTELLANOS OUTPATIEN 1 1 [facility] T VISIT 10 MINUTES OFFICE 42676 EMANUEL CASTELLANOS OUTPATIEN 1 1 [facility] T VISIT 15 MINUTES EMERGENCY 72492 ALF TERRY 1 1 EMERGENCY [facility] DEPARTMEN SERVICES T VISIT HIGH/URGE NT SEVERITY OFFICE 42384 A Domonique Byrd OUTPATIEN 1 1 TRICIA ZHU T VISIT PSC 15 MINUTES HOSPITAL JARVIS - 1 1 [facility] OUTPATIEN INC T OFFICE 68516 A Domonique Byrd OUTPATIEN 1 1 TRICIA ZHU T VISIT PSC 15 MINUTES PERIODIC 44333 J[facility]VIS [facility] PREVENTIV 1 1 [facility] E MED EST CENTER CENTER PATIENT 18-39 YRS HOSPITAL JARVIS - 1 1 [facility] OUTPATIEN INC T EMERGENCY 19039 ALF LAFLEUR DEPT 1 1 EMERGENCY III AVTAR VISIT SERVICES HIGH SEVERITY& THREAT FUNJ EMERGENCY 17993 JARVIS 1 1 [facility] DEPARTMEN INC T VISIT HIGH/URGE NT SEVERITY OFFICE 81491 [facility] OUTPATIEN 1 1 [facility] T VISIT 5 [facility]VIS - 0 0 [facility] OUTPATIEN INC T EMERGENCY 88070 [facility] 0 0 [facility] DEPARTMEN INC T VISIT LOW/MODER SEVERITY EMERGENCY 23885 ALF LAFLEUR 0 0 [facility] HIGH/URGE NT SEVERITY PERIODIC 55006 [facility] PREVENTIV 0 0 [facility] E MED EST CLINIC OF PATIENT [place]AM[place] 18-39 YRS OFFICE 17371 A Domonique Byrd OUTPATIEN 0 0 TRICIA ZHU T VISIT PSC 15 MINUTES OFFICE 08602 A Domonique Byrd OUTPATIEN 0 0 TRICIA ZHU T VISIT PSC 15 MINUTES OFFICE 04611 A Domonique Byrd OUTPATIEN 0 0 TRICIA ZHU T VISIT PSC 15 MINUTES [facility] T EMERGENCY 76526 ALF BRANCH 0 0 EMERGENCY DEPARTMEN SERVICES T VISIT MODERATE SEVERITY EMERGENCY 77720 [facility] 0 0 [facility] DEPARTMEN INC T VISIT LOW/MODER SEVERITY OFFICE 89651 [facility] 0 0 [facility] T VISIT [facility]INIC OF 15 [place] MINUTES OFFICE 17038 [facility], [facility] 0 [facility] VISIT CLINIC OF 15 MINUTES [facility] OFFICE 57092 A Rochelle ALVARADO OUTPATIEN 0 0 TRICIA Youssef T VISIT PSC 15 MINUTES [facility] 0 [facility] OUTPATI[facility] INC T EMERGENCY 52314 [facility] 0 0 [facility] DEPARTMEN INC T VISIT LOW/MODER SEVERITY EMERGENCY 03017 ALF LAFLEUR 0 0 EMERGENCY III, DEPARTMEN SERVICES MARY CARMEN T VISIT HIGH/URGE ASSOCIATE NT S SEVERITY OFFICE 50715 Rochelle SPENCER OUTPATIEN 0 0 TRICIA Youssef T VISIT PSC 15 MINUTES OFFICE 73184 ALLRAN ALLRAN CONSULTAT 0 0 JR TINAJERO ION CHARLES F CHARLES F NEW/ESTAB PATIENT 80 MIN [facility] 0 [facility] OUT[facility] INC T EMERGENCY 01190 [facility] DEPT 0 0 [facility] VISIT INC HIGH SEVERITY& THREAT FUNCJ EMERGENCY 99725 [facility] 0 0 [facility] DEPARTMEN INC T VISIT LOW/MODER SEVERITY [facility] - 0 0 [facility] OUTPATIEN INC T EMERGENCY 84215 ALF LINLeslie, 0 0 EMERGENCY NATALIE DEPARTMEN SERVICES O T VISIT HIGH/URGE ASSOCIATE NT S SEVERITY PERIODIC 74492 [facility] CONLEY PREVENTIV 0 0 [facility] CENTER PATIENT 18-39 YRS OFFICE 97318 [facility], OUTPATIEN 9 9 [facility] T VISIT CLINIC OF 25 MINUTES [facility] OFFICE 18279 Rochelle SPENCER 9 9 TRICIA Youssef T VISIT PSC 15 MINUTES EMERGENCY 26158 ALF GIANFRANCO, 9 9 EMERGENCY [facility] DEPARTMEN SERVICES T VISIT MODERATE ASSOCIATE SEVERITY S EMERGENCY 99048 [facility] 9 9 [facility] DEPARTMEN INC T VISIT LIMITED/[facility] - 9 9 [facility] OUTPATI[facility] INC T OFFICE 43538 Rochelle SPENCER OUTPATIGRETA 9 9 TRICIA Youssef T VISIT PSC 15 MINUTES [facility] - 9 9 [facility] OUTPATIEN INC T OFFICE 97323 [facility], [facility] 9 9 [facility] T VISIT CLINIC OF 15 MINUTES [facility]VIS - 9 9 [facility] OUTPATIEN INC T OFFICE 93166 [facility], [facility]IEN 9 9 [facility] T VISIT CLINIC OF 15 MINUTES [facility] OFFICE 33698 [facility], OUTPATIEN 9 9 [facility] J T VISIT CLINIC OF 15 MINUTES [facility]ENC[facility] 26443 J[facility]VIS 9 9 [facility] DEPARTMEN INC T VISIT LIMITED/[facility] - 9 9 [facility] OUTPATIEN INC T OFFICE 71224 PEBBLES GAUTAM 9 9 TRICIA [place]ona VISIT [facility] 15 MINUTES OFFICE 76914 DHS/CO JARVIS ROGEL 9 9 HEALTH CO HE[facility] T VISIT [facility] 25 BANK ACCT MINUTES OFFICE 65163 NUVIA PEDERSEN OUTPATIEN 8 8 DON R DON R T NEW 20 MINUTES OFFICE 24185 PEBBLES GAUTAM 8 8 TRICIA [place]ona VISIT [facility] 15 MINUTES OFFICE 31296 Rochelle SPENCER 8 8 TRICIA [place]ona VISIT [facility] 15 MINUTES HOSPITAL JARVIS - 8 8 [facility] OUTPATIEN INC T EMERGENCY 83826 J[facility]VIS JAQUEZ, 8 8 [facility] T VISIT PROF SERV MODERATE SEVERITY EMERGENCY 32950 JARVIS 8 8 [facility] T VISIT MODERATE SEVERITY
--- OUTSIDE RECORDS SUMMARY | 2017-02-05 14:06 | External Medical Summary Rpt ---
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 W/CONTRAS FOUNDATIO T N MATERIAL AMB A0427 [facility] SERVICE 2 FAYETTE FAYETTE ALS URBAN URBAN EMERGENCY COGOVT COGOVT TRANSPORT LEVEL 1 RADIOLOGI 60583 EZEGOMER EZEGOMER C 2 Y JUS Y JUS EXAMINATI ON KNEE 3 VIEWS RADIOLOGI 98693 EZEGOMER EZEGOMER C 2 Y JUS Y JUS EXAMINATI [place] [address] [place] HEAD/BRAI 2 MEDICAL FLA N W/[place] [address] [place] THORACIC 2 MEDICAL FLA SPINE W/O SERV CONTRAST FOUNDATIO MATERIAL N GROUND A0425 [facility] MILEAGE 2 FAYETTE FAYETTE PER URBAN URBAN STATUTE COGOVT COGOVT MILE RADIOLOGI 50307 EZEGOMER EZEGOMER C 2 Y JUS Y JUS EXAMINATI ON TIBIA & FIBULA 2 VIEWS RADIOLOGI 12781 MONTGOMER MONTGOMER C 2 Y JUS Y JUS EXAMINATI ON PELVIS 1/2 VIEWS RADEX 07578 EZEGOMER EZEGOMER SHOULDER 2 Y JUS Y JUS COMPLETE MINIMUM [address] LUMBAR [address] [place] RASLAU SPINE 2 MEDICAL FLA W/O SERV CONTRAST FOUNDATIO MATERIAL N RADEX HIP 37046 [place]OTA LOOGOMER 2 Y JUS Y JUS UNILATERA L COMPLETE MINIMUM 2 VIEWS RADEX 76936 RAINAMER EZEGOMER WRIST 2 Y JUS Y JUS COMPLETE MINIMUM 3 VIEWS RADEX 94203 RAINAMER RAINAMER FOREARM 2 2 Y JUS Y JUS VIEWS RADEX 15692 RAINAMER DAKOTA HUMERUS 2 Y JUS Y JUS MINIMUM 2 VIEWS REMOVAL 25447 EMANUEL CASTELLANOS NON-BIODE 2 [facility] GRADABLE DRUG DELIVERY IMPLANT THERAPEUT 04452 [facility] IC 2 [facility] PROPHYLAC INC INC TIC/DX INJECTION SUBQ/IM RADEX 55740 [place] JEANINE ANKLE 2 MEDICAL [place]UG[place] COMPLETE IMAGING MINIMUM 3 ASS VIEWS RADEX 40812 [place] JEANINE FOOT 2 MEDICAL [place]UG[place] COMPLETE IMAGING MINIMUM 3 ASS VIEWS IAADI 82168 [facility] INFFLUENZ 2 [facility] A A VIRUS INC INC IAADI 61854 J[facility] INFLUENZA 2 [facility] [place] [address] [facility] STREPTOCO 2 [facility] [place] [address] EMANUEL CASTELLANOS TRANSVAGI 2 [facility]OOKS NAL ETONOGEST J7307 EMANUEL CASTELLANOS REL 1 [facility] CNTRACPT IMPL SYS INCL IMPL & SPL INSERTION 96131 EMANUEL CASTELLANOS 1 [facility] IMPLANTAB LE CONTRACEP TIVE CAPSULES URINE 50502 EMANUEL CASTELLANOS 1 BROOSK BROOKS TEST VISUAL COLOR CMPRSN METHS CUL BACT 58403 COMBINED COMBINED XCPT 1 PHYSICIAN PHYSICIAN URINE S LA S LA BLOOD/STO OL AEROBIC ISOL ANTIBODY 40169 COMBINED COMBINED CHLAMYDIA 1 PHYSICIAN PHYSICIAN S LA S LA ANTIBODY 35232 COMBINED COMBINED CHLAMYDIA 1 PHYSICIAN PHYSICIAN S LA S LA CUL BACT 82856 COMBINED COMBINED XCPT 1 PHYSICIAN PHYSICIAN URINE S LA S LA BLOOD/STO OL AEROBIC ISOL URINE 37670 [facility] 1 [facility] TEST INC INC VISUAL COLOR CMPRSN METHS CYTP 98867 PATHOLOGY PATHOLOGY CERV/VAG 1 & & AUTO THIN CYTOLOGY CYTOLOGY LAYER LAB LAB PREP MNL SCREEN IADNA 87805 [facility] CHLAMYDIA 1 [facility] CENTER TRACHOMAT IS AMPLIFIED PROBE TQ URINE 82744 JARVIS CONLEY 1 [facility] TEST CENTER CENTER VISUAL COLOR CMPRSN METHS CONTRACEP A4267 J[facility] TIVE 1 [facility] SUPPLY CENTER CENTER CONDOM MALE EACH IADNA 71458 J[facility] NEISSERIA 1 [facility] GONORRHOE AE AMPLIFIED PROBE TQ DME A9900 J[facility]VIS [facility] SUP/ACCES 1 [facility] HE[facility] S/SRV-COM CENTER CENTER TONY/OTH HCPCS COMPREHEN 05409 [facility] SIVE 1 [facility] METABOLIC INC INC PANEL AMB A0427 [facility] SERVICE 1 AMBULANCE AMBULANCE ALS SERVICE SERVICE EMERGENCY [place]SPORT L[place] 1 [place] [address] [facility] INFUSION 1 [facility] THERAPY INC INC PROPHYLAX IS/DX EA HOUR BLOOD 86010 [facility] COUNT 1 [facility] COMPLETE INC INC AUTO&[place] [address] [facility] INFUSION 1 [facility] THERAPY/P INC INC ROPHYLAXI S /DX 1ST TO 1 HR ALS A0398 GHASSAN FERRELL ROUTINE 1 AMBULANCE AMBULANCE DISPOSABL SERVICE SERVICE E SUPPLIES GROUND A0425 GHASSAN FERRELL MILEAGE 1 AMBULANCE AMBULANCE PER SERVICE SERVICE STATUTE MILE ECG 56121 ALF LAFLEUR ROUTINE 1 EMERGENCY III AVTAR ECG SERVICES W/LEAST 12 LDS I&R ONLY ECG 70396 [facility] ROUTINE 1 [facility] ECG INC INC W/LEAST 12 LDS TRCG ONLY W/O I&[place] [address] [facility] MAGNESIUM 1 [facility] INC INC URINE 49559 WOMEN'S CASTELLANOS 1 [facility] TEST CLINIC OF VISUAL TMARA COLOR CMPRSN METHS INCISION 03167 ALF KRAFTMAN & 0 EMERGENCY III AVTAR DRAINAGE SERVICES ABSCESS COMPLICAT ED/MULTIP LE OTH 8604 [facility] INCISION 0 [facility] W/DRAINAG INC INC E SKIN&SUBC UTANEOUS TISSUE CYTP C/V 42492 PATHOLOGY PATHOLOGY AUTO THIN 0 & & LYR CYTOLOGY CYTOLOGY PREPJ SCR LAB LAB MNL RESCR PHYS REMOVAL 60374 WOMEN'S CASTELLANOS NON-BIODE 0 [facility] OF DRUG [place] DELIVERY IMPLANT IADNA 01383 A C TRICIA A STREPTOCO 0 TRICIA ZHU CCUS PSC GROUP A QUANTIFIC ATION INCISION 58030 A Domonique CLARKE A & 0 TRICIA ZHU DRAINAGE PSC ABSCESS SIMPLE/SI NGLE ETONOGEST J7307 WOMEN'S CASTELLANOS REL 0 [facility] CNTRACPT CLINIC OF IMPL SYS TAMRA INCL IMPL & SPL URINE 27273 WOMEN'S CASTELLAONS 0 [facility] TEST CLINIC OF VISUAL [place] COLOR CMPRSN METHS INSERTION 13613 WOMEN'S CASTELLANOS 0 [facility] IMPLANTAB CLINIC OF LE [place]RA CONTRACEP TIVE CAPSULES ANTIBODY 75698 COMBINED COMBINED CHLAMYDIA 0 PHYSICIAN PHYSICIAN S LA S LA CUL BACT 22289 COMBINED COMBINED XCPT 0 PHYSICIAN PHYSICIAN URINE S LA S LA BLOOD/STO OL AEROBIC ISOL CUL BACT 91904 COMBINED COMBINED XCPT 0 PHYSICIAN PHYSICIAN URINE S LAB S LAB BLOOD/STO OL AEROBIC ISOL ANTIBODY 46358 COMBINED COMBINED CHLAMYDIA 0 PHYSICIAN PHYSICIAN S LAB S LAB SMR PRIM 53234 WOMEN'S CASTELLANOS, SRC WET 0 [facility] OF NFCT AGT [place] PLLC REMOVAL 56156 WOMEN'S CASTELLANOS, NON-BIODE 0 [facility] CL[facility] OF DRUG DELIVERY [place] IMPLANT PLLC CUL BACT 41732 COMBINED COMBINED XCPT 0 PHYSICIAN PHYSICIAN URINE S LAB S LAB BLOOD/STO OL AEROBIC ISOL ANTIBODY 48254 COMBINED COMBINED CHLAMYDIA 0 PHYSICIAN PHYSICIAN S LAB S LAB CUL BACT 54960 [facility] AEROBIC 0 [facility] ADDL INC INC METHS DEFINITIV E EA ISOL CUL BACT 55788 [facility] XCPT 0 [facility] URINE INC INC BLOOD/STO OL AEROBIC ISOL OTH 8604 [facility] INCISION 0 [facility] W/DRAINAG INC INC E SKIN&SUBC UTANEOUS TISSUE INCISION 53918 ALF LAFLEUR & 0 EMERGENCY III, DRAINAGE SERVICES MARY CARMEN GONZALEZ COMPLICAT ASSOCIATE ED/MULTIP S LE SUSCEPTIB 00504 [facility] LTY STDY 0 [facility] ANTIMICRB INC INC IAL MICRO/AGA R DILUTJ LAPAROSCO 66168 ALLRAN ALLRAN PIC 0 JR, JR, APPENDECT KATARINA F KATARINA Parker KIERA ANESTHESI 00007 COMMUNITY Rochelle JEAN 0 ANESTH MARY CARMEN Parker [facility] LOWER ABD W/L[place] [address] JARVIS JARVIS INFUSION 0 [facility] THERAPY/P INC INC ROPHYLAXI S /DX 1ST TO 1 [place] [address] JARVIS MELLOON INFUSION 0 [facility] THERAPY INC INC PROPHYLAX IS/DX EA HOUR LEVEL III 56001 PATHOLOGY PATHOLOGY SURG 0 & & PATHOLOGY CYTOLOGY CYTOLOGY LAB LAB GROSS&CARLY ROSCOPIC EXAM [facility] G0378 JARVIS J[facility]VIS OBSERVATI 0 [facility] ON INC INC SERVICE PER HOUR LAPAROSCO 4701 [facility] PIC 0 [facility] APPENDECT INC INC KIERA CT PELVIS 09286 [facility] W/O 0 [facility] CONTRAST INC INC MATERIAL BASIC 94196 [facility] METABOLIC 0 [facility] PANEL INC INC CALCIUM TOTAL COMPREHEN 58870 [facility] SIVE 0 [facility] [place] [address] J[facility] ABDOMEN 0 [facility] W/O INC INC CONTRAST MATERIAL CRITICAL 60367 ALF [facility] CARE 0 EMERGENCY NATALIE ILL/INJUR SERVICES O ED PATIENT ASSOCIATE INIT S 30-74 MIN 3D 34095 [facility] RENDERING 0 [facility] INC INC W/INTERP& POSTPROC DIFF WORK STATION URINE 18531 [facility] 0 [facility] TEST INC INC [place] [address] [facility] LIPASE 0 [facility] INC INC BLOOD 48313 [facility] COUNT 0 [facility] COMPLETE INC INC AUTO&AUTO DIFRNTL WBC GLUC BLD 00658 [facility] GLUC MNTR 0 [facility] DEV INC [place] [address] [facility] AMYLASE 0 [facility] INC INC URNLS DIP 25688 [facility] 0 [facility] STICK/TAB INC INC LET REAGENT AUTO MICROSCOP Y URNLS DIP 70086 [facility] 0 [facility] STICK/TAB INC INC LET REAGENT AUTO MICROSCOP Y URINE 79028 [facility] 0 [facility] TEST INC INC VISUAL COLOR CMPRSN METHS CULTURE 09896 [facility] BACTERIAL 0 [facility] INC INC QUANTTATI VE COLONY COUNT URINE CONTRACEP A4267 J[facility]VIS [facility] TIVE [address] [place] [address] [facility] CONDOM MALE EACH GLUC BLD 28346 J[facility] GLUC MNTR 0 [facility] CLEARED FDA SPEC HOME USE CYTP 44317 PATHOLOGY PATHOLOGY CERVICAL/ 0 & & VAGINAL CYTOLOGY CYTOLOGY REQ LAB LAB INTERP PHYSICIAN WET Q0111 J[facility] [address] HEALTH INCL PREP CENTER CENTER VAGINAL CERV/SKIN SPECIMENS SMR PRIM 10890 JARVIS CONLEY SRC WET [address] [place] [address] NFCT AGT IADNA 67422 J[facility] CHLAMYDIA [address] [place] [address] CENTER TRACHOMAT IS AMPLIFIED PROBE TQ ALL Q0112 J[facility] POTASSIUM [address] [place] [address] CENTER HYDROXIDE PREPARATI ONS IADNA 00055 J[facility] NEISSERIA 0 [facility] GONORRHOE AE AMPLIFIED PROBE TQ CYTP 51528 PATHOLOGY PATHOLOGY CERV/VAG 0 & & AUTO THIN CYTOLOGY CYTOLOGY LAYER LAB LAB PREP MNL SCREEN ETONOGEST J7307 [facility]OMEN[facility] CASTELLANOS, REL 9 [facility] J CNTRACPT CLINIC OF IMPL SYS INCL IMPL [place] & SPL [facility] CYTP C/V 76278 PATHOLOGY PATHOLOGY AUTO THIN 9 & & LYR CYTOLOGY CYTOLOGY PREPJ SCR LAB LAB MNL RESCR PHYS INSERTION 76683 [facility] CASTELL[facility]OS, 9 [facility] J IMPLANTAB CLINIC OF LE CONTRACEP [place] TIVE [facility] CAPSULES NEURAXIAL 37255 COMMUNITY REAGAN, LABOR 9 ANESTH CHRISTIAN A ANALG/ANE OF THE S PLND [place] VAGINAL DELIVERY CUL BACT 93195 COMBINED COMBINED XCPT 9 PHYSICIAN PHYSICIAN URINE S LAB S LAB BLOOD/STO OL AEROBIC ISOL US PREG 81544 [facility]EN[facility] CASTELLANOS, UTERUS 9 [facility] J AFTER 1ST CLINIC OF TRIMEST [place] GESTATION [facility] THERAPEUT 50646 [facility] IC 9 [facility] PROPHYLAC INC INC TIC/DX INJECTION SUBQ/IM ALPHA-FET 50431 [facility] OPROTEIN 9 [facility] [place] [address] [facility] ESTRIOL 9 [facility] INC INC GONADOTRO 19942 [facility] PIN 9 [facility] CHORIONIC INC INC QUANTITAT PEEWEE IADNA 16791 CHERRI GAUTAM 9 TRICIA MOREL CCUS PSC GROUP A QUANTIFIC ATION [place] PREG 09919 [facility] CASTELL[facility], UTERUS 9 [facility] Cardoza REAL TIME CLINIC OF W/IMAGE DCMTN [place] TRANSVAG [facility] MOLECULAR 44321 MOLECULAR MOLECULAR DX AMP 9 TARGET PATHOLOGY PATHOLOGY MULTIPLEX LAB LAB 1ST 2 NETWORK NETWORK SEQ INC INC MOLECULAR 04054 MOLECULAR MOLECULAR 9 DIAGNOSTI PATHOLOGY PATHOLOGY CS LAB LAB INTERPRET NETWORK NETWORK ATION & INC INC REPORT IADNA 90109 PATHOLOGY PATHOLOGY NEISSERIA 9 & & CYTOLOGY CYTOLOGY GONORRHOE LAB LAB AE AMPLIFIED PROBE TQ MOLEC 48685 MOLECULAR MOLECULAR SEP&ID HI 9 RESOLU PATHOLOGY PATHOLOGY TQ EACH LAB LAB NUCLEIC NETWORK NETWORK ACID PREP INC INC MOLECULAR 21362 MOLECULAR MOLECULAR DX AMP 9 TARGET PATHOLOGY PATHOLOGY MULTIPLEX LAB LAB EA ADDL NETWORK NETWORK SEQ INC INC MUTATION 57392 MOLECULAR MOLECULAR ID 9 ENZYMATIC PATHOLOGY PATHOLOGY LAB LAB LIG/PRIME NETWORK NETWORK R XTN 1 INC INC SGM EA CYTP C/V 83449 PATHOLOGY PATHOLOGY AUTO THIN 9 & & LYR CYTOLOGY CYTOLOGY PREPJ SCR LAB LAB MNL RESCR PHYS IADNA 42178 PATHOLOGY PATHOLOGY CHLAMYDIA 9 & & CYTOLOGY CYTOLOGY TRACHOMAT LAB LAB IS AMPLIFIED PROBE TQ MOLEC 21862 MOLECULAR MOLECULAR ISOL/XTRJ 9 HP PATHOLOGY PATHOLOGY NUCLEIC LAB LAB ACID EA NETWORK NETWORK TYPE INC INC URINE 13841 DHS/CO JARVIS 9 HEALTH CO HEALTH TEST CENTRAL GRANGER VISUAL [place] [address] J[facility] HEAD/BRAI 8 [facility] N W/O INC INC CONTRAST MATERIAL 3D 45142 J[facility] RENDERING 8 [facility] W/INTERP INC INC & POSTPROCE SS SUPERVISI ON RADEX 13241 [place] NAM, SPINE 8 MEDICAL ERIC P CERVICAL IMAGING 6 OR MORE ASSOCIATE VIEWS S Encounters Encounter Start End Date Code Location Performer Type Date [facility] JARVIS - 6 6 [facility] OUTPATIEN INC T OFFICE 33173 [facility] PHYSICIAN STONE T VISIT S GROUP PA-C SAMANTHA 15 MINUTES [facility] JARVIS - 6 6 [facility] OUTPATIEN INC T EMERGENCY 79827 JUAN MURRAY [facility] 6 6 PHYSICIAN DEPARTMEN S, PLLC T VISIT MODERATE SEVERITY [facility]OSPITAL J[facility]VIS - 6 6 [facility] OUTPATIEN INC T EMERGENCY 58510 [facility]VIS 6 6 [facility] DEPARTMEN INC T VISIT LIMITED/M INOR PROB OFFICE 26997 [facility] VANESSA TINAJERO OUTPATIEN 6 6 PHYSICIAN TOMMY T VISIT S GROUP 10 MINUTES [facility] JARVIS - 6 6 [facility] OUTPATIEN INC T OFFICE 20326 [facility] OUTPATIEN 5 5 PHYSICIAN TOMMY T VISIT S GROUP 15 MINUTES EMERGENCY 77215 JUAN MURRAY [facility] 5 5 PHYSICIAN DEPARTMEN S, PLLC T VISIT MODERATE SEVERITY OFFICE 32668 [facility] JR OUTPATIEN 5 5 PHYSICIAN TOMMY T VISIT S GROUP 10 MINUTES HOSPITAL JARVIS - 5 5 [facility]PAT[facility]EN INC T [facility] 53416 [facility] PHYSICIAN TOMMY T VISIT S GROUP 15 MINUTES EMERGENCY 08027 JUAN MURRAY [facility] DEPT 5 5 PHYSICIAN VISIT S, PLLC HIGH SEVERITY& THREAT FUNCJ EMERGENCY 10165 JARVIS 5 5 [facility] DEPARTMEN INC T VISIT LOW/MODER SEVERITY HOSPITAL JARVIS - 5 5 [facility]EN [facility] T EMERGENCY 76037 JUAN HOOVER 5 5 PHYSICIAN Shaun EDUARDO DEPARTMEN S, PLLC T VISIT MODERATE SEVERITY EMERGENCY 66481 JUAN GREGG 5 5 PHYSICIAN FOR DEPARTMEN S, PLLC T VISIT HIGH/URGE NT SEVERITY HOSPITAL JARVIS - 5 5 [facility]OSP[facility] JARVIS - 5 5 [facility] - 5 5 [facility] T EMERGENCY 50374 JUAN CARBALLO 5 5 PHYSICIAN RENEE DEPARTMEN S, PLLC T VISIT MODERATE SEVERITY OFFICE 99798 [facility] PH[facility]ICIAN MOUNIKA T VISIT S GROUP 15 MINUTES EMERGENCY 09692 JUAN JACKMAN 5 5 PHYSICIAN DEPARTMEN S, PLLC T VISIT HIGH/URGE NT SEVERITY HOSPITAL JARVIS - 5 5 [facility] T OFFICE 14583 [facility] [place]UL[place] OUTPATIEN 5 5 PHYSICIAN CAM T VISIT S GROUP 10 MINUTES HOSPITAL JARVIS - 5 5 [facility] INPATIENT INC OFFICE 12206 [facility] CASTELLANOS OUTPATIEN 5 5 PHYSICIAN BROOKS T VISIT S GROUP 15 MINUTES OFFICE 11459 A C KILPELA OUTPATIEN 5 5 TRICIA ZHU JEA T VISIT PSC 15 MINUTES Inpatient [facility] Jarvis Castellanos MD (IN) 3 03:09 3 11:50 [facility] OFFICE 28766 EMANUEL CASTELLANOS OUTPATIEN 3 3 [facility] T VISIT 15 MINUTES OFFICE 31862 EMANUEL CASTELLANOS OUTPATIEN 3 3 [facility] T VISIT 15 MINUTES OFFICE 58226 EMANUEL CASTELLANOS OUTPATIEN 3 3 [facility] T VISIT 15 MINUTES OFFICE 27764 CASTELLANOS CASTELLANOS OUTPATIEN 3 3 [facility] T VISIT 15 MINUTES OFFICE 91431 EMANUEL PRINGLEE OUTPATIEN 3 3 [facility] T VISIT 15 MINUTES OFFICE 06636 CASTELLANOS EMANUEL OUTPATIEN 3 3 [facility] T VISIT 15 MINUTES OFFICE 63458 A C KILPELA OUTPATIEN 3 3 TRICIA ZHU JEA T VISIT PSC 15 MINUTES OFFICE 61281 A C KILPELA OUTPATIEN 3 3 TRICIA ZHU JEA T VISIT PSC 15 MINUTES OFFICE 56303 EMANUEL CASTELLANOS OUTPATIEN 3 3 [facility] T VISIT 5 MINUTES OFFICE 38177 A C KILPELA OUTPATIEN 3 3 TRICIA ZHU JEA T VISIT PSC 15 MINUTES OFFICE 37907 EMANUEL CASTELLANOS OUTPATIEN 3 3 [facility] T VISIT 15 MINUTES EMERGENCY 40378 [facility]VIS 2 2 [facility] DEPARTMEN INC T VISIT HIGH/URGE NT SEVERITY HOSPITAL JARVIS - 2 2 [facility] T EMERGENCY 75427 MARA LEONEY DEPT 2 2 CARLY CARLY VISIT HIGH SEVERITY& THREAT FUN EMERGENCY 88504 JYOTSNA GOYAL 2 2 [facility] T VISIT HIGH/URGE NT SEVERITY HOSPITAL JARVIS - 2 2 [facility] JARVIS - 2 2 [facility] - 2 2 [facility] EMERGENCY 37472 CIARRA LAFLEUR 2 2 III AVTAR III [facility] T VISIT HIGH/URGE NT SEVERITY EMERGENCY 32077 JARVIS 2 2 [facility] T VISIT MODERATE SEVERITY HOSPITAL JARVIS - 2 2 [facility] UNIVERSIT - 2 2 [facility] EMERGENCY 49587 ANASTACIA GUNN 2 2 [facility] SERV T VISIT FOUNDATIO HIGH/URGE NT SEVERITY PERIODIC 44771 EMANUEL CASTELLANOS PREVENTIV 2 2 [facility] MED EST PATIENT 18-39 YRS EMERGENCY 46313 JARVIS 2 2 [facility] INC T VISIT MODERATE SEVERITY HOSPITAL JARVIS - 2 2 [facility] OUTPATIEN [facility] T EMERGENCY 84783 ALF FERREIRA 2 2 EMERGENCY [facility] SERVICES T VISIT HIGH/URGE NT SEVERITY EMERGENCY 90896 CIARRA LAFLEUR 2 2 III [facility] MODERATE SEVERITY EMERGENCY 21528 JARVIS 2 2 [facility] INC T VISIT LOW/MODER SEVERITY HOSPITAL JARVIS - 2 2 [facility] OUTPATIEN INC T OFFICE 94708 LANG GARCIA OUTPATIEN 2 2 T VISIT 15 MINUTES OFFICE 85705 EMANUEL CASTELLANOS OUTPATIEN 1 1 [facility] T VISIT 10 MINUTES OFFICE 28315 EMANUEL CASTELLANOS OUTPATIEN 1 1 [facility] T VISIT 15 MINUTES EMERGENCY 20187 ALF TERRY 1 1 EMERGENCY [facility] DEPARTMEN SERVICES T VISIT HIGH/URGE NT SEVERITY OFFICE 48261 A Domonique Byrd OUTPATIEN 1 1 [facility] T VISIT PSC 15 MINUTES HOSPITAL [facility]VIS - 1 1 [facility] T OFFICE 98353 A Domonique Byrd OUTPATIEN 1 1 [facility] ZHU T VISIT PSC 15 MINUTES PERIODIC 33635 JARVIS CONLEY PREVENTIV 1 1 [facility] MED EST CENTER CENTER PATIENT 18-39 YRS HOSPITAL JARVIS - 1 1 [facility] OUTPATIEN INC T EMERGENCY 18288 ALF LAFLEUR DEPT 1 1 EMERGENCY III AVTAR VISIT SERVICES HIGH SEVERITY& THREAT FUNJ EMERGENCY 32254 JARVIS 1 1 [facility] DEPARTMEN INC T VISIT HIGH/URGE NT SEVERITY OFFICE 03148 WOMEN'S EMANUEL OUTPATIEN 1 1 [facility] T VISIT 5 [facility]VIS - 0 0 [facility] INC T EMERGENCY 73115 JARVIS 0 0 [facility] DEPARTMEN INC T VISIT LOW/MODER SEVERITY EMERGENCY 09283 ALF LAFLEUR 0 0 [facility] HIGH/URGE NT SEVERITY PERIODIC 02775 [facility] CA[facility]LL[facility] PREVENTIV 0 0 [facility] E MED EST CLINIC OF PATIENT [place] 18-39 YRS OFFICE 65510 A Domonique Byrd OUTPATIEN 0 0 [facility] ZHU T VISIT PSC 15 MINUTES OFFICE 15845 A Domonique Byrd OUTPATIEN 0 0 [facility] ZHU T VISIT PSC 15 MINUTES OFFICE 32735 A Domonique Byrd OUTPATIEN 0 0 [facility] ZHU T VISIT PSC 15 MINUTES HOSPITAL [facility]ARVIS - 0 0 [facility] T EMERGENCY 90044 ALF BRANCH 0 0 EMERGENCY DEPARTMEN SERVICES T VISIT MODERATE SEVERITY EMERGENCY 94916 [facility]VIS 0 0 [facility] DEPART[facility] T VISIT LOW/MODER SEVERITY OFFICE 94112 [facility] OUTPATIEN 0 0 [facility] T VISIT CLINIC OF 15 [place] MINUTES OFFICE 53574 [facility], OUTPATIEN 0 0 [facility] T VISIT CLINIC OF 15 MINUTES [facility] OFFICE 27307 A Rochelle ALVARADO OUTPATIEN 0 0 TRICIA Youssef T VISIT PSC 15 MINUTES HOSPITAL [facility]ARVIS - 0 0 [facility] OUTPATI[facility] INC T EMERGENCY 30109 [facility]VIS 0 0 [facility] DEPARTMEN INC T VISIT LOW/MODER SEVERITY EMERGENCY 59882 ALF LAFLEUR 0 0 EMERGENCY III, DEPARTMEN SERVICES MARY CARMEN T VISIT HIGH/URGE ASSOCIATE NT S SEVERITY OFFICE 68389 Rochelle SPENCER OUTPATIEN 0 0 TRICIA Youssef T VISIT PSC 15 MINUTES OFFICE 65973 ALLRAN ALLRAN CONSULTAT 0 0 JR TINAJERO ION CHARLES F CHARLES F NEW/ESTAB PATIENT 80 MIN [facility]PITAL [facility] - 0 0 [facility] T EMERGENCY 41042 [facility] DEPT 0 0 [facility] VISIT INC HIGH SEVERITY& THREAT FUNCJ EMERGENCY 43300 [facility]VIS 0 0 [facility] DEPARTMEN INC T VISIT LOW/MODER SEVERITY HOSPITAL J[facility]VIS - 0 0 [facility] INC T EMERGENCY 37831 ALF LINLeslie, 0 0 EMERGENCY NATALIE DEPARTMEN SERVICES O T VISIT HIGH/URGE ASSOCIATE NT S SEVERITY PERIODIC 93579 JARVIS CONLEY PREVENTIV 0 0 [facility] CENTER PATIENT 18-39 YRS OFFICE 50020 [facility], OUT[facility]IEN 9 9 [facility] T VISIT CLINIC OF 25 MINUTES [facility] OFFICE 20166 Rochelle SPENCER 9 9 TRICIA Youssef T VISIT PSC 15 MINUTES EMERGENCY 79332 ALF GIANFRNACO, 9 9 EMERGENCY [facility] DEPARTMEN SERVICES T VISIT MODERATE ASSOCIATE SEVERITY S EMERGENCY [id number] [facility] 9 9 [facility] DEPART[facility] INC T VISIT LIMITED/M [facility]VIS - 9 9 [facility] OUTPATIEN INC T OFFICE 73555 Rochelle SPENCER OUTPATIGRETA 9 9 TRICIA Youssef T VISIT PSC 15 MINUTES [facility] - 9 9 [facility] T OFFICE 25095 [facility], [facility] 9 9 [facility] T VISIT CLINIC OF 15 MINUTES [facility] JARVIS - 9 9 [facility] OUTPATIEN INC T OFFICE 44955 [facility], OUTPATIEN 9 9 [facility] J T VISIT CLINIC OF 15 MINUTES [facility] OFFICE 29600 [facility], OUTPATIEN 9 9 [facility] J T VISIT CLINIC OF 15 MINUTES [facility] EMERGENCY 75034 JARVIS 9 9 [facility] DEPARTMEN INC T VISIT LIMITED/M [facility]VIS - 9 9 [facility] OUT[facility] INC T OFFICE 24634 PEBBLES GAUTAM 9 9 TRICIA [place] VISIT [facility] 15 MINUTES OFFICE 51680 DHS/CO JARVIS ROGEL 9 9 [facility]ALTH [facility] T VISIT [facility] 25 BANK ACCT MINUTES OFFICE 91430 NUVIA PEDERSEN OUTPATIEN 8 8 DON R DON R T NEW 20 MINUTES OFFICE 47320 PEBBLES GAUTAM 8 8 [place] VISIT [facility] 15 MINUTES OFFICE 65130 Rochelle SPENCER 8 8 [place] VISIT [facility] 15 MINUTES HOSPITAL JARVIS - 8 8 [facility] T EMERGENCY 61159 JARVIS JAQUEZ, 8 8 [facility] T VISIT PROF SERV MODERATE SEVERITY EMERGENCY 56040 JARVIS 8 8 [facility] T VISIT MODERATE SEVERITY
--- OUTSIDE RECORDS SUMMARY | 2017-02-05 14:16 | External Medical Summary Rpt ---
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 DOPPLER 86456 [facility] CA[facility] VELOCIMET 3 BROOKS BROOKS RY UMBILICAL ARTERY US PREG 31324 [facility] UTERUS 3 [facility] BROOKS REAL TIME F/U TRNSABDL PER FETUS 58762 [facility] CASTELLANOS NONSTRESS 3 [facility] BROOKS TEST DOPPLER 00457 [facility] CA[facility]OS VELOCIMET 3 [facility] BROOKS RY UMBILICAL ARTERY US PREG 55080 [facility] CASTELLANOS UTERUS 3 BROOKS BROOKS REAL TIME F/U TRNSABDL PER FETUS 67212 [facility] CASTELLAN[facility] BIOPHYSIC 3 BROOKS BROOKS AL PROFILE W/O NON-STRES S TESTING GLUCOSE 14922 [facility] TOLERANCE 3 BROOKS BROOKS TEST GTT 3 SPECIMENS CUL BACT 95083 [facility] XCPT 3 DIAGNOSTI DIAGNOSTI URINE CS CS BLOOD/STO OL AEROBIC ISOL US PREG 94880 [facility] UTERUS 3 BROOKS BROOKS AFTER 1ST TRIMEST GESTATION US PREG 20563 [facility] CASTELL[facility] UTERUS 3 BROOKS BROOKS AFTER 1ST TRIMEST GESTATION IADNA 48778 [facility] PICKLESIM NEISSERIA 3 ER JR RAMSES ER JR RAMSES GONORRHOE AE AMPLIFIED PROBE TQ IADNA 56625 [facility] PICK[facility] CHLAMYDIA 3 ER JR RAMSES ER JR RAMSES TRACHOMAT IS AMPLIFIED PROBE TQ CYTP C/V 69762 [facility] PICKLESIM AUTO THIN 3 ER JR RAMSES ER JR RAMSES LYR PREPJ SCR MNL RESCR PHYS SMR PRIM 51698 [facility] CASTELLANOS SRC WET 2 [place] [address] [facility] INFUSION 2 [facility] THERAPY INC INC PROPHYLAX IS/DX EA HOUR URINE 43096 [facility] TEST INC INC VISUAL COLOR CMPRSN METHS BLOOD 87106 [facility] TYPING 2 [facility] SEROLOGIC INC INC RH (D) CULTURE 92588 [facility] BACTERIAL 2 [facility] INC INC QUANTTATI VE COLONY COUNT URINE TX MISSED 00835 [facility] 2 [facility] FIRST INC INC TRIMESTER SURGICAL GONADOTRO 98600 [facility] PIN 2 [facility] CHORIONIC INC INC QUANTITAT PEEWEE US PREG 23733 [facility] UTERUS 2 [facility] REAL TIME INC INC W/[place] [address] PATHOLOGY ESCOBEDO SURG 2 & FIOR PATHOLOGY CYTOLOGY LAB GROSS&CARLY ROSCOPIC EXAM ANESTHESI 41495 [facility] RE[facility]AN A VAGINAL 2 ANESTH CHRISTINA OF THE PROCEDURE BLUE W/[place] [address] [facility] INFUSION 2 [facility] THERAPY/P INC INC ROPHYLAXI S /DX 1ST TO 1 HR URNLS DIP 20404 [facility] 2 [facility] STICK/TAB INC INC LET REAGENT AUTO MICROSCOP Y BLOOD 16453 [facility] COUNT 2 [facility] COMPLETE INC INC AUTO&AUTO DIFRNTL WBC THERAPEUT 21664 [facility] IC 2 [facility] INJECTION INC [place] [address] JYOTSNA GOYAL ULNAR 2 GAR GAR SHAFT FRACTURE W/O MANIPULAT ION RADEX 35846 [facility] [place] SCALF FIOR ANKLE 2 RADIOLOGY COMPLETE MINIMUM 3 VIEWS RADEX 05202 [facility] [place]AL[place] FI[place] FOREARM 2 2 RADIOLOGY VIEWS RADEX 37359 [facility] [place] SCALF FIOR RIBS UNI 2 RADIOLOGY W/POSTERO ANT CH MINIMUM 3 VIEWS RADEX 71446 [facility] FOREARM 2 2 [facility] VIEWS INC INC WRIST L3908 MONET MONET HAND 2 HOME HOME ORTHOSIS MEDICAL MEDICAL EXT EQUIPME EQUIPME CONTROL COCK-UP PREFAB RADEX 13787 [facility] FOREARM 2 2 [facility] VIEWS INC INC INCISION 68979 [facility] & 2 [facility] DRAINAGE INC INC ABSCESS COMPLICAT ED/MULTIP LE URINE 22902 [facility] 2 [facility] TEST INC INC [place] [address] PETTEY PETTEY ULNAR 2 JAM JAM SHAFT FRACTURE W/O MANIPULAT ION RADEX 03754 [place] JEANINE SHOULDER 2 MEDICAL AUGUSTINA COMPLETE IMAGING MINIMUM 2 ASS VIEWS RADEX 99481 JEANINE JEANINE FOREARM 2 2 AUGUSTINA AUGUSTINA VIEWS RADEX 51493 MONTGOMER MONTGOMER FOREARM 2 2 Y JUS Y JUS VIEWS RADEX 37503 MONTGOMER MONTGOMER ANKLE 2 Y JUS Y JUS COMPLETE MINIMUM 3 VIEWS RADEX 15866 MONTGOMER MONTGOMER FOOT 2 Y JUS Y JUS COMPLETE MINIMUM 3 VIEWS RADEX 90985 MONTGOMER MONTGOMER ANKLE 2 Y JUS Y JUS COMPLETE MINIM[address] [place] [address] [place] DION ANGIOGRAP 2 MEDICAL HY CHEST SERV W/CONTRAS FOUNDAT[place] T/[place] [address] [place] CERVICAL 2 MEDICAL FLA SPINE W/[place] [address] [place] HEAD/BRAI 2 MEDICAL FLA N W/[place] [address] [place] THORACIC 2 MEDICAL FLA SPINE W/O SERV CONTRAST FOUNDATIO MATERIAL N RADIOLOGI 59201 MONTGOMER MONTGOMER C 2 Y JUS Y JUS EXAMINATI ON KNEE 3 VIEWS RADIOLOGI 11329 MONTGOMER MONTGOMER C 2 Y JUS Y JUS EXAMINATI ON CHEST SINGLE VIEW FRONTAL AMB A0427 [facility] RUTH SERVICE 2 FAYETTE FASAME ALS URBAN URBAN EMERGENCY COGOVT COGOVT TRANSPORT LEVEL 1 RADEX 38585 MONTGOMER MONTGOMER HUMERUS 2 Y JUS Y JUS MINIMUM 2 VIEWS RADEX 79500 MONTGOMER MONTGOMER WRIST 2 Y JUS Y JUS COMPLETE MINIMUM 3 VIEWS RADEX HIP 74982 MONTGOMER MONTGOMER 2 Y JUS Y JUS UNILATERA L COMPLETE MINIMUM 2 VIEWS RADEX 70050 MONTGOMER MONTGOMER FOREARM 2 2 Y JUS Y JUS VIEWS RADEX 66323 MONTGOMER MONTGOMER ELBOW 2 Y JUS Y JUS COMPLETE MINIMUM 3 VIEWS RADIOLOGI 96722 MONTGOMER MONTGOMER C 2 Y JUS Y JUS EXAMINATI ON FEMUR 2 VIEWS RADEX 35114 MONTGOMER MONTGOMER SHOULDER 2 Y JUS Y JUS COMPLETE MINIMUM 2 VIEWS RADIOLOGI 90718 MONTGOMER MONTGOMER C 2 Y JUS Y JUS EXAMINATI ON PELVIS 1/2 VIEWS RADIOLOGI 81445 MONTGOMER MONTGOMER C 2 Y JUS Y JUS EXAMINATI ON TIBIA & FIBULA 2 VIEWS GROUND A0425 [facility] MILEAGE 2 FAYETTE FAYETTE PER URBAN [place] [address] [place] MANNING DION ABDOMEN & 2 MEDICAL PELVIS SERV W/CONTRAS FOUNDATIO T N MATERIAL [facility] LUMBAR 74010 [place] RAS[place]U SPINE 2 MEDICAL FLA W/O SERV CONTRAST FOUNDATIO MATERIAL N REMOVAL 64904 [facility] CASTELLANOS NON-BIODE 2 BROOKS BROOKS GRADABLE DRUG DELIVERY IMPLANT RADEX 37318 [facility] ANKLE 2 [facility] COMPLETE INC INC MINIMUM 3 VIEWS RADEX 95756 [facility] FOOT 2 [facility] COMPLETE INC INC MINIMUM 3 VIEWS THERAPEUT 07291 [facility] IC 2 [facility] PROPHYLAC INC INC TIC/DX INJECTION SUBQ/IM IAADI 46590 [facility] INFLUENZA 2 [facility] B VIRUS INC INC IAADI 72252 [facility] INFFLUENZ 2 [facility] [place] [address] [facility] STREPTOCO 2 [facility] [place] [address] EMANUEL CASTELLANOS TRANSVAGI 2 BROOKS BROOKS NAL INSERTION 39861 EMANUEL CASTELLANOS 1 BROOKS BROOKS IMPLANTAB LE CONTRACEP TIVE CAPSULES ETONOGEST J7307 [facility] CASTELLANOS REL 1 BROOKS BROOKS CNTRACPT IMPL SYS INCL IMPL & SPL URINE 94143 EMANUEL CASTELLANOS 1 BROOKS BROOKS TEST VISUAL COLOR CMPRSN METHS CUL BACT 21690 COMBINED COMBINED XCPT 1 PHYSICIAN PHYSICIAN URINE S LA S LA BLOOD/STO OL AEROBIC ISOL ANTIBODY 92819 COMBINED COMBINED CHLAMYDIA 1 PHYSICIAN PHYSICIAN S LA S LA ANTIBODY 40793 COMBINED COMBINED CHLAMYDIA 1 PHYSICIAN PHYSICIAN S LA S LA CUL BACT 78767 COMBINED COMBINED XCPT 1 PHYSICIAN PHYSICIAN URINE S LA S LA BLOOD/STO OL AEROBIC ISOL URINE 99452 [facility] TEST INC INC VISUAL COLOR CMPRSN METHS CYTP 93429 PATHOLOGY PATHOLOGY CERV/VAG 1 & & AUTO THIN CYTOLOGY CYTOLOGY LAYER LAB LAB PREP MNL SCREEN DME A9900 [facility] SUP/ACCES 1 [facility] [employer] [facility] S/SRV-COM C[facility] CENTER TONY/OTH HCPCS CONTRACEP A4267 J[facility] TIVE 1 [facility] HEALTH SUPPLY CENTER CENTER CONDOM MALE EACH IADNA 01654 [facility] NEISSERIA 1 [facility] GONORRHOE AE AMPLIFIED PROBE TQ URINE 61711 [facility] 1 [facility] [place] [facility] VISUAL COLOR CMPRSN METHS IADNA 03248 [facility] CHLAMYDIA 1 [facility] TRACHOMAT IS AMPLIFIED PROBE TQ COMPREHEN 72409 [facility] SIVE 1 [facility] METABOLIC INC INC PANEL ECG 81461 [facility] ARAIZA ROUTINE 1 [facility] W/LEAST P 12 LDS I&R ONLY GROUND A0425 [facility] MILEAGE 1 AMBULANCE AMBULANCE PER SERVICE SERVICE STATUTE MILE ALS A0398 [facility] ROUTINE 1 AMBULANCE AMBULANCE [place] [address] [facility] INFUSION 1 [facility] THERAPY/P INC INC ROPHYLAXI S /DX 1ST TO 1 HR BLOOD 65717 [facility] COUNT 1 [facility] COMPLETE INC INC AUTO&[place] [address] [facility] MAGNESIUM 1 [facility] INC INC ECG 95963 [facility] ROUTINE 1 [facility] ECG INC INC W/LEAST 12 LDS TRCG ONLY W/O I&[place] [address] [facility] INFUSION 1 [facility] THERAPY INC INC PROPHYLAX IS/DX EA HOUR AMB A0427 [facility] SERVICE 1 AMBULANCE AMBULANCE ALS SERVICE SERVICE EMERGENCY TRANSPORT LEVEL 1 URINE 21363 [facility] 1 [facility] VISUAL [place] COLOR CMPRSN METHS INCISION 97836 ALF LAFLEUR & 0 EMERGENCY III AVTAR DRAINAGE SERVICES ABSCESS COMPLICAT ED/MULTIP LE OTH 8604 [facility] INCISION 0 [facility] W/DRAINAG INC INC E SKIN&SUBC UTANEOUS TISSUE CYTP C/V 03291 PATHOLOGY PATHOLOGY AUTO THIN 0 & & LYR CYTOLOGY CYTOLOGY PREPJ SCR LAB LAB MNL RESCR PHYS REMOVAL 17867 [facility] NON-BIODE 0 [facility] GRADABLE CLINIC OF DRUG [place] DELIVERY IMPLANT IADNA 42253 A C TRICIA A STREPTOCO 0 TRICIA ZHU CCUS PSC GROUP A QUANTIFIC ATION INCISION 74901 A Domonique CLARKE A & 0 TRICIA ZHU DRAINAGE PSC ABSCESS SIMPLE/SI NGLE URINE 05211 [facility] 0 [facility] OF VISUAL [place] COLOR CMPRSN METHS ETONOGEST J7307 [facility] REL 0 [facility] CNTRACPT CLINIC OF IMPL SYS [place] INCL IMPL & SPL INSERTION 83690 [facility] 0 [facility] IMPLANTAB CLINIC OF LE [place] CONTRACEP TIVE CAPSULES ANTIBODY 47324 COMBINED COMBINED CHLAMYDIA 0 PHYSICIAN PHYSICIAN S LA S LA CUL BACT 29925 COMBINED COMBINED XCPT 0 PHYSICIAN PHYSICIAN URINE S LA S LA BLOOD/STO OL AEROBIC ISOL CUL BACT 98881 COMBINED COMBINED XCPT 0 PHYSICIAN PHYSICIAN URINE S LAB S LAB BLOOD/STO OL AEROBIC ISOL ANTIBODY 03360 COMBINED COMBINED CHLAMYDIA 0 PHYSICIAN PHYSICIAN S LAB S LAB REMOVAL 83615 [facility], NON-BIODE 0 [facility] CLINIC OF DRUG DELIVERY [place] IMPLANT PLLC SMR PRIM 04968 [facility], SRC WET 0 [facility] OF NFCT AGT [place] PLLC CUL BACT 49602 COMBINED COMBINED XCPT 0 PHYSICIAN PHYSICIAN URINE S LAB S LAB BLOOD/STO OL AEROBIC ISOL ANTIBODY 68434 COMBINED COMBINED CHLAMYDIA 0 PHYSICIAN PHYSICIAN S LAB S LAB SUSCEPTIB 07076 [facility] LTY STDY 0 [facility] ANTIMICRB INC INC IAL MICRO/AGA R DILUTJ INCISION 15445 ALF LAFLEUR & 0 EMERGENCY III, DRAINAGE SERVICES MARY CARMEN ABSCESS COMPLICAT ASSOCIATE ED/MULTIP S LE CUL BACT 17738 [facility] XCPT 0 [facility] URINE INC INC BLOOD/STO OL AEROBIC ISOL CUL BACT 58403 [facility] AEROBIC 0 [facility] ADDL INC INC METHS DEFINITIV E EA ISOL OTH 8604 [facility] INCISION 0 [facility] W/DRAINAG INC INC E SKIN&SUBC UTANEOUS TISSUE LAPAROSCO 4701 [facility] PIC 0 [facility] [place] [address] [facility] INFUSION 0 [facility] THERAPY INC [place] [address] [facility] INFUSION 0 [facility] THERAPY/P INC INC ROPHYLAXI S /DX 1ST TO 1 HR LEVEL III 64949 PATHOLOGY PATHOLOGY SURG 0 & & PATHOLOGY CYTOLOGY CYTOLOGY LAB LAB GROSS&CARLY ROSCOPIC EXAM ANESTHESI 40453 [facility] JEAN, A 0 ANESTH MARY CARMEN Parker [facility] W/[facility] G0378 [facility] OBSERVATI 0 [facility] ON INC INC SERVICE PER HOUR LAPAROSCO 30880 ALLRAN ALLRAN PIC 0 JR LIOR, APPENDECT [place] [address] [place] [facility], ABDOMEN 0 MEDICAL ERIC P W/O IMAGING [place] [address] [facility] AMYLASE 0 [facility] INC INC COMPREHEN 03113 [facility] SIVE 0 [facility] METABOLIC INC INC PANEL BLOOD 37833 [facility] COUNT 0 [facility] COMPLETE INC INC AUTO&AUTO DIFRNTL WBC GLUC BLD 70218 [facility] GLUC MNTR 0 [facility] DEV INC INC CLEARED FDA SPEC HOME USE URINE 19657 [facility] 0 [facility] TEST INC INC VISUAL COLOR CMPRSN METHS 3D 79243 [place] [facility], RENDERING 0 MEDICAL ERIC P IMAGING W/INTERP& ASSOCIATE POSTPROC S DIFF WORK STATION CT PELVIS 53001 KAI BROWNING, W/O 0 MEDICAL ERIC P CONTRAST IMAGING MATERIAL ASSOCIATE S URNLS DIP 85655 [facility] 0 [facility] STICK/TAB INC INC LET REAGENT AUTO MICROSCOP Y BASIC 03569 [facility] METABOLIC 0 [facility] PANEL INC INC CALCIUM TOTAL CRITICAL 05654 ALF [place], CARE 0 EMERGENCY NATALIE ILL/INJUR SERVICES O ED PATIENT ASSOCIATE INIT S 30-74 [place] [address] [facility] LIPASE 0 [facility] INC INC URNLS DIP 52358 [facility] 0 [facility] STICK/TAB INC INC LET REAGENT AUTO MICROSCOP Y URINE 08926 [facility] 0 [facility] TEST INC INC VISUAL COLOR CMPRSN METHS CULTURE 67243 [facility] BACTERIAL 0 [facility] INC INC QUANTTATI VE COLONY COUNT URINE GLUC BLD 15971 [facility] GLUC MNTR 0 [facility] [place] CLEARED FDA SPEC HOME USE CONTRACEP A4267 [facility] TIVE [address] [place] [address] SU[facility]Y [place] [facility] CONDOM MALE EACH ALL Q0112 [facility] POTASSIUM [address] [place] [address] HYDROXIDE PREPARATI ONS IADNA 93892 [facility] CHLAMYDIA [address] [facility] TRACHOMAT IS AMPLIFIED PROBE TQ SMR PRIM 34400 [facility] SRC WET [address] [place] [address] NFCT AGT CYTP 03867 PATHOLOGY PATHOLOGY CERV/VAG 0 & & AUTO THIN CYTOLOGY CYTOLOGY LAYER LAB LAB PREP MNL SCREEN IADNA 72168 [facility] NEISSERIA [address] [facility] GONORRHOE AE AMPLIFIED PROBE TQ WET Q0111 [facility] [address] CENTER VAGINAL CERV/SKIN SPECIMENS CYTP 31186 PATHOLOGY PATHOLOGY CERVICAL/ 0 & & VAGINAL CYTOLOGY CYTOLOGY REQ LAB LAB INTERP PHYSICIAN CYTP C/V 79111 PATHOLOGY PATHOLOGY AUTO THIN 9 & & LYR CYTOLOGY CYTOLOGY PREPJ SCR LAB LAB MNL RESCR PHYS ETONOGEST J7307 [facility], REL 9 [facility] J CNTRACPT CLINIC OF IMPL SYS INCL IMPL [place] & SPL PLLC INSERTION 54619 [facility], 9 [facility] J IMPLANTAB CLINIC OF LE CONTRACEP [place] TIVE PLLC CAPSULES NEURAXIAL 93095 [facility], LABOR 9 ANESTH CHRISTIAN A ANALG/ANE OF THE S PLND [place]UE[place]ASS VAGINAL DELIVERY CUL BACT 52349 COMBINED COMBINED XCPT 9 PHYSICIAN PHYSICIAN URINE S LAB S LAB BLOOD/STO OL AEROBIC ISOL US PREG 46573 [facility], UTERUS 9 [facility] J AFTER CLINIC OF TRIMEST [place] GESTATION PLLC THERAPEUT 91091 [facility] IC 9 [facility] PROPHYLAC INC INC TIC/DX INJECTION SUBQ/IM GONADOTRO 01457 [facility] PIN 9 [facility] CHORIONIC INC INC QUANTITAT PEEWEE ALPHA-FET 85196 [facility] OPROTEIN 9 [facility] [place] [address] J[facility] ESTRIOL 9 [facility] INC INC IADNA 93754 CHERRI GAUTAM 9 TRICIA MOREL CCUS PSC GROUP A QUANTIFIC ATION US PREG 95570 [facility], UTERUS 9 [facility] J REAL TIME CLINIC OF W/IMAGE DCMTN [place] TRANSVAG PLLC CYTP C/V 38156 PATHOLOGY PATHOLOGY AUTO THIN 9 & & LYR CYTOLOGY CYTOLOGY PREPJ SCR LAB LAB MNL RESCR PHYS MUTATION 24240 MOLECULAR MOLECULAR ID 9 ENZYMATIC PATHOLOGY PATHOLOGY LAB LAB LIG/PRIME NETWORK NETWORK R XTN 1 INC INC SGM EA MOLECULAR 48751 MOLECULAR MOLECULAR 9 DIAGNOSTI PATHOLOGY PATHOLOGY CS LAB LAB INTERPRET NETWORK NETWORK ATION & INC INC REPORT MOLECULAR 26153 MOLECULAR MOLECULAR DX AMP 9 TARGET PATHOLOGY PATHOLOGY MULTIPLEX LAB LAB 1ST 2 NETWORK NETWORK SEQ INC INC MOLECULAR 47762 MOLECULAR MOLECULAR DX AMP 9 TARGET PATHOLOGY PATHOLOGY MULTIPLEX LAB LAB EA ADDL NETWORK NETWORK SEQ INC INC MOLEC 47549 MOLECULAR MOLECULAR SEP&ID HI 9 RESOLU PATHOLOGY PATHOLOGY TQ EACH LAB LAB NUCLEIC NETWORK NETWORK ACID PREP INC INC IADNA 72595 PATHOLOGY PATHOLOGY NEISSERIA 9 & & CYTOLOGY CYTOLOGY GONORRHOE LAB LAB AE AMPLIFIED PROBE TQ MOLEC 65289 MOLECULAR MOLECULAR ISOL/XTRJ 9 HP PATHOLOGY PATHOLOGY NUCLEIC LAB LAB ACID EA NETWORK NETWORK TYPE INC INC IADNA 57368 PATHOLOGY PATHOLOGY CHLAMYDIA 9 & & CYTOLOGY CYTOLOGY TRACHOMAT LAB LAB IS AMPLIFIED PROBE TQ URINE 51964 DHS/CO J[facility]VIS 9 HEALTH CO HEALTH TEST [facility] [place] [facility] [place] [address] KAI BROWNING HEAD/BRAI 8 MEDICAL ERIC P N W/O IMAGING CONTRAST ASSOCIATE MATERIAL S RADEX 39301 [facility] SPINE 8 [facility] CERVICAL INC INC 6 OR MORE VIEWS 3D 39032 KAI BROWNING, RENDERING 8 MEDICAL ERIC P W/INTERP IMAGING & ASSOCIATE POSTPROCE S SS SUPERVISI ON Encounters Encounter Start End Date Code Location Performer Type Date HOSPITAL [facility] - 6 6 [facility] OUTPATIEN INC T OFFICE 32183 [facility]YN OUTPATRIC 6 6 PHYSICIAN YAJAIRA T VISIT S GROUP KIAN SINGH 15 MINUTES [facility] JARVIS - 6 6 [facility] OUTPATIEN INC T EMERGENCY 09358 [facility] 6 6 [facility] DEPARTMEN INC T VISIT LIMITED/M INOR PROB HOSPITAL [facility] - 6 6 [facility] OUTPATIEN INC T EMERGENCY 82563 JUAN TIRADO 6 6 PHYSICIAN SERENITY S, PLLC T VISIT MODERATE SEVERITY OFFICE 14243 [facility] VANESSA ROGEL 6 6 PHYSICIAN TOMMY T VISIT S GROUP 10 MINUTES [facility] JARVIS - 6 6 [facility] OUTPATIEN INC T OFFICE 67524 [facility] ALLRAN JR OUTPATIEN 5 5 PHYSICIAN TOMMY T VISIT S GROUP 15 MINUTES EMERGENCY 60692 [facility] 5 5 PHYSICIAN DEPARTMEN S, PLLC T VISIT MODERATE SEVERITY HOSPITAL [facility] - 5 5 [facility] OUTPATIEN INC T OFFICE 19315 [facility] ALLRAN JR OUTPATIEN 5 5 PHYSICIAN TOMMY T VISIT S GROUP 10 MINUTES OFFICE 15965 [facility] ALLRAN JR OUTPATIEN 5 5 PHYSICIAN TOMMY T VISIT S GROUP 15 MINUTES EMERGENCY 68599 [facility]AN MUR[facility] DEPT 5 5 PHYSICIAN VISIT S, PLLC HIGH SEVERITY& THREAT FUNCJ EMERGENCY 67504 [facility] 5 5 [facility] DEPARTMEN INC T VISIT LOW/MODER SEVERITY HOSPITAL [facility] - 5 5 [facility] OUTPATIEN INC T EMERGENCY 23864 JUAN HOOVER 5 5 PHYSICIAN Shaun EDUARDO DEPARTMEN S, PLLC T VISIT MODERATE SEVERITY EMERGENCY 35035 JUAN GREGG 5 5 PHYSICIAN FOR DEPARTMEN S, PLLC T VISIT HIGH/URGE NT SEVERITY HOSPITAL [facility] - 5 5 [facility] OUTPATIEN [facility] T HOSPITAL JARVIS - 5 5 [facility] OUTPATIEN INC T HOSPITAL JARVIS - 5 5 [facility] OUTPATIEN INC T EMERGENCY 72504 JUAN CARBALLO 5 5 PHYSICIAN RENEE DEPARTMEN S, PLLC T VISIT MODERATE SEVERITY OFFICE [id number] [facility] MARCIAL OUTPATIGRETA 5 5 PHYSICIAN MOUNIKA T VISIT S GROUP 15 MINUTES EMERGENCY 72386 JUAN JACKMAN 5 5 PHYSICIAN DEPARTMEN S, PLLC T VISIT HIGH/URGE NT SEVERITY HOSPITAL JARVIS - 5 5 [facility] OUTPATIEN INC T OFFICE 71942 [facility] [place] OUTPATIEN 5 5 PHYSICIAN CAM T VISIT S GROUP 10 MINUTES HOSPITAL [facility] - 5 5 [facility] INPATIENT INC OFFICE 89056 [facility] EMANUEL OUTPATIEN 5 5 PHYSICIAN BROOKS T VISIT S GROUP 15 MINUTES OFFICE 89287 A C KILPELA OUTPATIEN 5 5 TRICIA ZHU JEA T VISIT PSC 15 MINUTES OFFICE 82390 MEANUEL PRINGLEE OUTPATIEN 3 3 [facility] T VISIT 15 MINUTES OFFICE 49938 EMANUEL PRINGLEE OUTPATIEN 3 3 [facility] T VISIT 15 MINUTES OFFICE 42219 EMANUEL PRINGLEE OUTPATIEN 3 3 [facility] T VISIT 15 MINUTES OFFICE 34959 EMANUEL CASTELLANOS OUTPATIEN 3 3 [facility] T VISIT 15 MINUTES OFFICE 98654 EMANUEL CASTELLANOS OUTPATIEN 3 3 [facility] T VISIT 15 MINUTES OFFICE 15465 EMANUEL CASTELLANOS OUTPATIEN 3 3 [facility] T VISIT 15 MINUTES OFFICE 62189 A C KILPELA OUTPATIEN 3 3 TRICIA ZHU JEA T VISIT PSC 15 MINUTES OFFICE 10311 EMANUEL CASTELLANOS OUTPATIEN 3 3 [facility] T VISIT 5 MINUTES OFFICE 35412 A C KILPELA OUTPATIEN 3 3 TRICIA ZHU JEA T VISIT PSC 15 MINUTES OFFICE 66807 A C KILPELA OUTPATIEN 3 3 TRICIA ZHU JEA T VISIT PSC 15 MINUTES OFFICE 93913 EMANUEL CASTELLANOS OUTPATIEN 3 3 [facility] T VISIT 15 MINUTES EMERGENCY 29879 MARA TERRY DEPT 2 2 CARLY CARLY VISIT HIGH SEVERITY& THREAT FUNCJ EMERGENCY 98207 [facility] HIGH/URGE NT SEVERITY HOSPITAL JARVIS - 2 2 [facility] T EMERGENCY 62820 JYOTSNA GOYAL 2 2 [facility] T VISIT HIGH/URGE NT SEVERITY HOSPITAL JARVIS - 2 2 [facility] 06300 [facility] 2 2 [facility] T VISIT MODERATE SEVERITY EMERGENCY 01090 CIARRA LAFLEUR 2 2 III AVTAR III [facility] T VISIT HIGH/URGE NT SEVERITY HOSPITAL JARVIS - 2 2 [facility] 2 2 [facility] UNIVERSIT - 2 2 [facility] EMERGENCY 23626 ANASTACIA GUNN 2 2 [facility] SERV T VISIT FOUNDATIO HIGH/URGE NT SEVERITY PERIODIC 26471 EMANUEL CASTELLANOS PREVENTIV 2 2 [facility] E MED EST PATIENT 18-39 YRS [facility]VIS - 2 2 [facility] 99517 ALF FERREIRA 2 2 EMERGENCY [facility] T VISIT HIGH/URGE NT SEVERITY EMERGENCY 72187 JARVIS 2 2 [facility] T VISIT MODERATE SEVERITY EMERGENCY 21740 CIARRA LALFEUR 2 2 III AVTAR III [facility] T VISIT MODERATE SEVERITY EMERGENCY 09257 JARVIS 2 2 [facility] T VISIT LOW/MODER SEVERITY [facility]OSPITAL J[facility]VIS - 2 2 [facility] 67415 [facility]ANG [facility] T VISIT 15 MINUTES OFFICE 76674 EMANUEL CASTELLANOS OUTPATIEN 1 1 [facility] T VISIT 10 MINUTES OFFICE 26972 EMANUEL CASTELLANOS OUTPATIEN 1 1 [facility] T VISIT 15 MINUTES EMERGENCY 64868 ALF TERRY 1 1 EMERGENCY [facility] DEPARTMEN SERVICES T VISIT HIGH/URGE NT SEVERITY OFFICE 78572 A Domonique Byrd OUTPATIEN 1 1 [facility] ZHU T VISIT PSC 15 MINUTES HOSPITAL JARVIS - 1 1 [facility] OUTPATIEN INC T OFFICE [id number] A Domonique Byrd OUTPATIEN 1 1 TR[facility]IA ZHU T VISIT PSC 15 MINUTES PERIODIC 38082 JARVIS [place] PREVENTIV 1 1 [facility] HEALTH E MED EST CENTER CENTER PATIENT 18-39 YRS HOSPITAL JARVIS [facility] 1 1 [facility] T EMERGENCY 97700 JARVIS 1 1 [facility] T VISIT HIGH/URGE NT SEVERITY EMERGENCY 11849 ALF LAFLEUR DEPT 1 1 EMERGENCY III AVTAR VISIT SERVICES HIGH SEVERITY& THREAT FUNCJ OFFICE 23427 [facility] 1 1 [facility] 5 [facility]IN[facility] OF MINUTES [place] EMERGENCY 99600 [facility] LOW/MODER SEVERITY EMERGENCY 47738 ALF LAFLEUR 0 0 EMERGENCY III [facility] T VISIT HIGH/URGE NT SEVERITY HOSPITAL JARVIS - 0 0 [facility] OUTPATIEN INC T PERIODIC 37463 [facility] PRE[facility]IV 0 0 [facility] E MED EST CLINIC OF PATIENT [place] 18-39 YRS OFFICE 84636 A Domonique Byrd OUTPATIEN 0 0 [facility] ZHU T VISIT PSC 15 MINUTES OFFICE 28380 A Domonique Byrd OUTPATIEN 0 0 [facility] Z[facility] T VISIT PSC 15 MINUTES OFFICE 43151 Rochelle Byrd OUTPATIEN 0 0 TRICIA ZHU T VISIT PSC 15 MINUTES EMERGENCY 51652 [facility]VIS 0 0 [facility] DEPARTMEN INC T VISIT LOW/MODER SEVERITY [facility]OSPITAL JARVIS - 0 0 [facility] OUTPATI[facility] INC T EMERGENCY 16111 ALF BRANCH 0 0 EMERGENCY DEPARTMEN SERVICES T VISIT MODERATE SEVERITY OFFICE 04518 [facility] 0 0 [facility] T VIS[facility]IN[facility] OF 15 [place] MINUTES OFFICE 23045 [facility], [facility] 0 0 [facility] CLIN[facility] OF 15 MINUTES [facility] OFFICE 39203 Rochelle SPENCER OUTPATIEN 0 0 TRICIA Youssef T VISIT PSC 15 MINUTES EMERGENCY 76739 ALF LAFLEUR 0 0 EMERGENCY III, DEPARTMEN SERVICES MARY CARMEN T VISIT HIGH/URGE ASSOCIATE NT S SEVERITY EMERGENCY 06665 [facility]VIS 0 0 [facility] DEPART[facility] INC T VISIT LOW/MODER SEVERITY [facility]OSPITAL J[facility]VIS - 0 0 [facility] OUTPATI[facility] INC T OFFICE 23405 Rochelle SPENCER OUTPATIEN 0 0 TRICIA Youssef T VISIT PSC 15 MINUTES OFFICE 14085 VANESSA ALLRAN CONSULTAT 0 0 JR TINAJERO ION CHARLES F CHARLES F NEW/ESTAB PATIENT 80 MIN EMERGENCY 16768 [facility]VIS DEPT 0 0 [facility] VISIT INC HIGH SEVERITY& THREAT FUN [facility]OSP[facility] JARVIS - 0 0 [facility] OUTPATIEN INC T [facility]OSPITAL JARVIS - 0 0 [facility] OUTPATIEN INC T EMERGENCY 93121 [facility]ARVIS 0 0 [facility] DEPARTMEN INC T VISIT LOW/MODER SEVERITY EMERGENCY 40597 ALF [place], 0 0 EMERGENCY NATALIE DEPARTMEN SERVICES O T VISIT HIGH/URGE ASSOCIATE NT S SEVERITY PERIODIC 92912 JARVIS JARVIS PREVENTIV 0 0 [facility] PATIENT 18-39 YRS OFFICE 84887 [facility], [facility] 9 9 [facility] T VISIT CLINIC OF 25 MINUTES [facility] OFFICE 52806 Rochelle SPENCER 9 9 TRICIA Youssef T VISIT PSC 15 MINUTES EMERGENCY 06589 ALF MEDEL, 9 9 EMERGENCY [facility] DEPARTMEN SERVICES T VISIT MODERATE ASSOCIATE SEVERITY S EMERGENCY 35923 JARVIS 9 9 [facility] DEPARTMEN INC T VISIT LIMITED/M [facility] JARVIS - 9 9 [facility] OUTPATIEN INC T HOSPITAL JARVIS - 9 9 [facility] OUTPATIEN INC T OFFICE 66459 Rochelle SPENCER 9 9 TRICIA Youssef T VISIT PSC 15 MINUTES HOSPITAL JARVIS - 9 9 [facility] OUTPATIEN INC T OFFICE 03678 [facility], [facility] 9 9 [facility] T VISIT CLINIC OF 15 MINUTES [facility] OFFICE 12529 [facility], OUTPATIEN 9 9 [facility] 11268 [facility], OUTPATIEN 9 9 [facility] T VISIT CLINIC OF 15 MINUTES [facility] EMERGENCY 98058 JARVIS 9 9 [facility] DEPARTMEN INC T VISIT LIMITED/M [facility] JARVIS - 9 9 [facility] OUTPATIEN INC T OFFICE 37170 PEBBLES GAUTAM 9 9 TRICIA MOREL T VISIT PSC 15 MINUTES OFFICE 78747 [facility] JARVIS ROGEL 9 9 HEALTH CO [facility] T VISIT [facility] 25 BANK ACCT MINUTES OFFICE 35931 NUVIA PEDERSEN OUTPATIEN 8 8 DON R DON R T NEW 20 MINUTES OFFICE 38997 PEBBLES GAUTAM 8 8 TRICIA MOREL T VISIT PSC 15 MINUTES OFFICE 05829 Rochelle SPENCER 8 8 TRICIA [place]ona VISIT PSC 15 MINUTES EMERGENCY 26373 JARVIS JAQUEZ, 8 8 [facility] T VISIT PROF SERV MODERATE SEVERITY EMERGENCY 52942 JARVIS 8 8 [facility] T VISIT MODERATE SEVERITY HOSPITAL JARVIS - 8 8 [facility] OUTPATIEN INC T
--- OUTSIDE RECORDS SUMMARY | 2017-02-05 14:16 | External Medical Summary Rpt ---
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 [place] MANNING DION ANGIOGRAP 2 MEDICAL HY CHEST SERV W/CONTRAS FOUNDAT[place] T/[place] [address] [place] RAS[place]U CERVICAL 2 MEDICAL FLA SPINE W/[place] [address] [place] HEAD/BRAI 2 MEDICAL FLA N W/[place] [address] [place] THORACIC 2 MEDICAL FLA SPINE W/O SERV CONTRAST FOUNDATIO MATERIAL N RADIOLOGI 20827 MONTGOMER MONTGOMER C 2 Y JUS Y JUS EXAMINATI ON KNEE 3 VIEWS RADIOLOGI 42893 MONTGOMER MONTGOMER C 2 Y JUS Y JUS EXAMINATI ON CHEST SINGLE VIEW FRONTAL AMB A0427 RUTH RUTH SERVICE 2 FAYETTE FASAME ALS URBAN URBAN EMERGENCY COGOVT COGOVT TRANSPORT LEVEL 1 RADEX 48533 MONTGOMER MONTGOMER HUMERUS 2 Y JUS Y JUS MINIMUM 2 VIEWS RADEX 43405 MONTGOMER MONTGOMER WRIST 2 Y JUS Y JUS COMPLETE MINIMUM 3 VIEWS RADEX HIP 60682 MONTGOMER MONTGOMER 2 Y JUS Y JUS UNILATERA L COMPLETE MINIMUM 2 VIEWS RADEX 65916 MONTGOMER MONTGOMER FOREARM 2 2 Y JUS Y JUS VIEWS RADEX 27385 MONTGOMER MONTGOMER ELBOW 2 Y JUS Y JUS COMPLETE MINIMUM 3 VIEWS RADIOLOGI 19591 MONTGOMER MONTGOMER C 2 Y JUS Y JUS EXAMINATI ON FEMUR 2 VIEWS RADEX 80663 MONTGOMER MONTGOMER SHOULDER 2 Y JUS Y JUS COMPLETE MINIMUM 2 VIEWS RADIOLOGI 14175 MONTGOMER MONTGOMER C 2 Y JUS Y JUS EXAMINATI ON PELVIS 1/2 VIEWS RADIOLOGI 57428 MONTGOMER MONTGOMER C 2 Y JUS Y JUS EXAMINATI ON TIBIA & FIBULA 2 VIEWS GROUND A0425 RUTH RUTH MILEAGE 2 FAYETTE FAYETTE PER URBAN [place] [address] [place] MANNING DION ABDOMEN & 2 MEDICAL PELVIS SERV W/CONTRAS FOUNDATIO T N MATERIAL CT LUMBAR 76391 [place] RASLAU SPINE 2 MEDICAL FLA W/O SERV CONTRAST FOUNDATIO MATERIAL N REMOVAL 25641 EMANUEL CASTELLANOS NON-BIODE 2 BROO[facility] BROOKS GRADABLE DRUG DELIVERY IMPLANT RADEX 25424 [facility] ANKLE 2 [facility] COMPLETE INC INC MINIMUM 3 VIEWS RADEX 41685 [facility] FOOT 2 [facility] COMPLETE INC INC MINIMUM 3 VIEWS THERAPEUT 65731 [facility] IC 2 [facility] PROPHYLAC INC INC TIC/DX INJECTION SUBQ/IM IAADI 38678 [facility] INFLUENZA 2 [facility] B VIRUS INC INC IAADI 63155 [facility] INFFLUENZ 2 [facility] [place] [address] [facility] STREPTOCO 2 [facility] [place] [address] EMANUEL CASTELLANOS TRANSVAGI 2 BROOKS BROOKS NAL INSERTION 71409 EMANUEL CASTELLANOS 1 BROOKS BROOKS IMPLANTAB LE CONTRACEP TIVE CAPSULES ETONOGEST J7307 EMANUEL CASTELLANOS REL 1 BROOKS BROOKS CNTRACPT IMPL SYS INCL IMPL & SPL URINE 85372 EMANUEL CASTELLANOS 1 [facility] TEST VISUAL COLOR CMPRSN METHS CUL BACT 93972 COMBINED COMBINED XCPT 1 PHYSICIAN PHYSICIAN URINE S LA S LA BLOOD/STO OL AEROBIC ISOL ANTIBODY 45379 COMBINED COMBINED CHLAMYDIA 1 PHYSICIAN PHYSICIAN S LA S LA ANTIBODY 13866 COMBINED COMBINED CHLAMYDIA 1 PHYSICIAN PHYSICIAN S LA S LA CUL BACT 45299 COMBINED COMBINED XCPT 1 PHYSICIAN PHYSICIAN URINE S LA S LA BLOOD/STO OL AEROBIC ISOL URINE 85069 [facility] 1 [facility] TEST INC INC VISUAL COLOR CMPRSN METHS CYTP 97143 PATHOLOGY PATHOLOGY CERV/VAG 1 & & AUTO THIN CYTOLOGY CYTOLOGY LAYER LAB LAB PREP MNL SCREEN DME A9900 [facility] SUP/ACCES 1 [place] [employer] [place] [facility] S/SRV-COM CENTER CENTER TONY/OTH HCPCS CONTRACEP A4267 [facility] TIVE 1 [facility] SUP[facility]Y [facility] CENTER CONDOM MALE EACH IADNA 18694 [facility] NEISSERIA 1 [facility] GONORRHOE AE AMPLIFIED PROBE TQ URINE 39427 [facility] 1 [facility] TEST [place] [facility] VISUAL COLOR CMPRSN METHS IADNA 43588 [facility] CHLAMYDIA 1 [facility] TRACHOMAT IS AMPLIFIED PROBE TQ COMPREHEN 28527 [facility] SIVE 1 [facility] METABOLIC INC INC PANEL ECG 20550 JARVIS ARAIZA ROUTINE 1 [facility] W/LEAST P 12 LDS I&R ONLY GROUND A0425 [facility] MILEAGE 1 AMBULANCE AMBULANCE PER SERVICE SERVICE STATUTE MILE ALS A0398 [facility] ROUTINE 1 AMBULANCE AMBULANCE [place] [address] [facility] INFUSION 1 [facility] THERAPY/P INC INC ROPHYLAXI S /DX 1ST TO 1 HR BLOOD 51902 [facility] COUNT 1 [facility] COMPLETE INC INC AUTO&[place] [address] [facility] MAGNESIUM 1 [facility] INC INC ECG 77804 J[facility] ROUTINE 1 [facility] ECG INC INC W/LEAST 12 LDS TRCG ONLY W/O I&[place] [address] [facility] INFUSION 1 [facility] THERAPY INC INC PROPHYLAX IS/DX EA HOUR AMB A0427 [facility] SERVICE 1 AMBULANCE AMBULANCE ALS SERVICE SERVICE EMERGENCY TRANSPORT LEVEL 1 URINE 08109 [facility] 1 [facility] TEST CLIN[facility] OF VISUAL [place] COLOR CMPRSN METHS INCISION 39659 ALF LAFLEUR & 0 EMERGENCY III AVTAR DRAINAGE SERVICES ABSCESS COMPLICAT ED/MULTIP LE OTH 8604 [facility]E INCISION 0 [facility] W/DRAINAG INC INC E SKIN&SUBC UTANEOUS TISSUE CYTP C/V 79956 PATHOLOGY PATHOLOGY AUTO THIN 0 & & LYR CYTOLOGY CYTOLOGY PREPJ SCR LAB LAB MNL RESCR PHYS REMOVAL 17409 [facility] NON-BIODE 0 [facility] DRUG [place] DELIVERY IMPLANT IADNA 83938 A C TRICIA A STREPTOCO 0 TRICIA ZHU CCUS PSC GROUP A QUANTIFIC ATION INCISION 85083 A Domonique CLARKE A & 0 TRICIA ZHU DRAINAGE PSC ABSCESS SIMPLE/SI NGLE URINE 41848 [facility] 0 [facility] OF VISUAL [place] COLOR CMPRSN METHS ETONOGEST J7307 [facility] REL 0 [facility] CNTRACPT CLINIC OF IMPL SYS [place] INCL IMPL & SPL INSERTION 03758 [facility] 0 [facility] IMPLANTAB CLINIC OF LE [place] CONTRACEP TIVE CAPSULES ANTIBODY 84890 COMBINED COMBINED CHLAMYDIA 0 PHYSICIAN PHYSICIAN S LA S LA CUL BACT 03049 COMBINED COMBINED XCPT 0 PHYSICIAN PHYSICIAN URINE S LA S LA BLOOD/STO OL AEROBIC ISOL CUL BACT 28714 COMBINED COMBINED XCPT 0 PHYSICIAN PHYSICIAN URINE S LAB S LAB BLOOD/STO OL AEROBIC ISOL ANTIBODY 55856 COMBINED COMBINED CHLAMYDIA 0 PHYSICIAN PHYSICIAN S LAB S LAB REMOVAL 09875 [facility], NON-BIODE 0 [facility] CLINIC OF DRUG DELIVERY [place] IMPLANT PLLC SMR PRIM 54866 [facility] CASTELL[facility], SRC WET 0 [facility] CLIN[facility] OF NFCT AGT [place] PLLC CUL BACT 67687 COMBINED COMBINED XCPT 0 PHYSICIAN PHYSICIAN URINE S LAB S LAB BLOOD/STO OL AEROBIC ISOL ANTIBODY 89654 COMBINED COMBINED CHLAMYDIA 0 PHYSICIAN PHYSICIAN S LAB S LAB SUSCEPTIB 68518 [facility] LTY STDY 0 [facility] ANTIMICRB INC INC IAL MICRO/AGA R DILUTJ INCISION 28582 ALF LAFLEUR & 0 EMERGENCY III, DRAINAGE SERVICES MARY CARMEN ABSCESS COMPLICAT ASSOCIATE ED/MULTIP S LE CUL BACT 57201 [facility] XCPT 0 [facility] URINE INC INC BLOOD/STO OL AEROBIC ISOL CUL BACT 74728 [facility] AEROBIC 0 [facility] ADDL INC INC METHS DEFINITIV E EA ISOL OTH 8604 [facility] CONELY INCISION 0 [facility] W/DRAINAG INC INC E SKIN&SUBC UTANEOUS TISSUE LAPAROSCO 4701 [facility] PIC 0 [facility] [place] [address] [facility] INFUSION 0 [facility] THERAPY INC [place] [address] [facility] INFUSION 0 [facility] THERAPY/P INC INC ROPHYLAXI S /DX 1ST TO 1 HR LEVEL III 01491 PATHOLOGY PATHOLOGY SURG 0 & & PATHOLOGY CYTOLOGY CYTOLOGY LAB LAB GROSS&CARLY ROSCOPIC EXAM ANESTHESI 84468 [facility], A 0 ANESTH MARY CARMEN Parker [facility] G0378 [facility] OBSERVATI 0 [facility] ON INC INC SERVICE PER HOUR LAPAROSCO 84359 ALLRAN ALLRAN PIC 0 JR LIOR, APPENDECT [place] [address] [place], ABDOMEN 0 MEDICAL EIRC P W/O IMAGING [place] [address] [facility] AMYLASE 0 [facility] INC INC COMPREHEN 92103 [facility] SIVE 0 [facility] METABOLIC INC INC PANEL BLOOD 98229 [facility] COUNT 0 [facility] COMPLETE INC INC AUTO&AUTO DIFRNTL WBC GLUC BLD 25335 [facility] GLUC MNTR 0 [facility] DEV INC INC CLEARED FDA SPEC HOME USE URINE 38538 [facility] 0 [facility] TEST INC INC VISUAL COLOR CMPRSN METHS 3D 18078 [place] N[facility], RENDERING 0 MEDICAL ERIC P IMAGING W/INTERP& ASSOCIATE POSTPROC S DIFF WORK STATION CT PELVIS 41205 KAI BROWNING, W/O 0 MEDICAL ERIC P CONTRAST IMAGING MATERIAL ASSOCIATE S URNLS DIP 47573 [facility] 0 [facility] STICK/TAB INC INC LET REAGENT AUTO MICROSCOP Y BASIC 28857 [facility] METABOLIC 0 [facility] PANEL INC INC CALCIUM TOTAL CRITICAL 40910 ALF [place], CARE 0 EMERGENCY NATALIE ILL/INJUR SERVICES O ED PATIENT ASSOCIATE INIT S 30-74 [place] [address] [facility] LIPASE 0 [facility] INC INC URNLS DIP 68094 [facility] 0 [facility] STICK/TAB INC INC LET REAGENT AUTO MICROSCOP Y URINE 57816 [facility] 0 [facility] TEST INC INC VISUAL COLOR CMPRSN METHS CULTURE 11101 [facility] BACTERIAL 0 [facility] INC INC QUANTTATI VE COLONY COUNT URINE GLUC BLD 01595 [facility] GLUC MNTR 0 [facility] DEV [facility] CLEARED FDA SPEC HOME USE CONTRACEP A4267 J[facility] TIVE [address] [place] [address] SUPPLY [place] CONDOM MALE EACH ALL Q0112 [facility] POTASSIUM [address] [place] [address] HYDROXIDE PREPARATI ONS IADNA 08772 [facility] CHLAMYDIA 0 [facility] TRACHOMAT IS AMPLIFIED PROBE TQ SMR PRIM 56097 [facility] SRC WET [address] [place] [address] NFCT AGT CYTP 64399 PATHOLOGY PATHOLOGY CERV/VAG 0 & & AUTO THIN CYTOLOGY CYTOLOGY LAYER LAB LAB PREP MNL SCREEN IADNA 67118 [facility] NEISSERIA 0 [facility] GONORRHOE AE AMPLIFIED PROBE TQ WET Q0111 J[facility] [address] CENTER VAGINAL CERV/SKIN SPECIMENS CYTP 80658 PATHOLOGY PATHOLOGY CERVICAL/ 0 & & VAGINAL CYTOLOGY CYTOLOGY REQ LAB LAB INTERP PHYSICIAN CYTP C/V 10627 PATHOLOGY PATHOLOGY AUTO THIN 9 & & LYR CYTOLOGY CYTOLOGY PREPJ SCR LAB LAB MNL RESCR PHYS ETONOGEST J7307 [facility], REL 9 [facility] CNTRACPT CLINIC OF IMPL SYS INCL IMPL [place] & SPL PLLC INSERTION 44515 [facility], 9 [facility] J IMPLANTAB CLINIC OF LE CONTRACEP [place] TIVE PLLC CAPSULES NEURAXIAL 78656 [facility]UNITY REAGAN, LABOR 9 ANESTH CHRISTIAN A ANALG/ANE OF THE S PLND [place] VAGINAL DELIVERY CUL BACT 63380 COMBINED COMBINED XCPT 9 PHYSICIAN PHYSICIAN URINE S LAB S LAB BLOOD/STO OL AEROBIC ISOL US PREG 19898 [facility], UTERUS 9 [facility] J AFTER CLINIC OF TRIMEST [place] GESTATION PLLC THERAPEUT 04489 [facility] IC 9 [facility] PROPHYLAC INC INC TIC/DX INJECTION SUBQ/IM GONADOTRO 63452 [facility] PIN 9 [facility] CHORIONIC INC INC QUANTITAT PEEWEE ALPHA-FET 59228 [facility] OPROTEIN 9 [facility] [place] [address] J[facility] ESTRIOL 9 [facility] INC INC IADNA 84642 CHERRI GAUTAM 9 TRICIA MOREL CCUS PSC GROUP A QUANTIFIC ATION US PREG 28506 [facility], UTERUS 9 [facility] J REAL TIME CLINIC OF W/IMAGE DCMTN [place] TRANSVAG PLLC CYTP C/V 15249 PATHOLOGY PATHOLOGY AUTO THIN 9 & & LYR CYTOLOGY CYTOLOGY PREPJ SCR LAB LAB MNL RESCR PHYS MUTATION 14690 MOLECULAR MOLECULAR ID 9 ENZYMATIC PATHOLOGY PATHOLOGY LAB LAB LIG/PRIME NETWORK NETWORK R XTN 1 INC INC SGM EA MOLECULAR 74875 MOLECULAR MOLECULAR 9 DIAGNOSTI PATHOLOGY PATHOLOGY CS LAB LAB INTERPRET NETWORK NETWORK ATION & INC INC REPORT MOLECULAR 96957 MOLECULAR MOLECULAR DX AMP 9 TARGET PATHOLOGY PATHOLOGY MULTIPLEX LAB LAB 1ST 2 NETWORK NETWORK SEQ INC INC MOLECULAR 62763 MOLECULAR MOLECULAR DX AMP 9 TARGET PATHOLOGY PATHOLOGY MULTIPLEX LAB LAB EA ADDL NETWORK NETWORK SEQ INC INC MOLEC 13021 MOLECULAR MOLECULAR SEP&ID HI 9 RESOLU PATHOLOGY PATHOLOGY TQ EACH LAB LAB NUCLEIC NETWORK NETWORK ACID PREP INC INC IADNA 04776 PATHOLOGY PATHOLOGY NEISSERIA 9 & & CYTOLOGY CYTOLOGY GONORRHOE LAB LAB AE AMPLIFIED PROBE TQ MOLEC 00640 MOLECULAR MOLECULAR ISOL/XTRJ 9 HP PATHOLOGY PATHOLOGY NUCLEIC LAB LAB ACID EA NETWORK NETWORK TYPE INC INC IADNA 70899 PATHOLOGY PATHOLOGY CHLAMYDIA 9 & & CYTOLOGY CYTOLOGY TRACHOMAT LAB LAB IS AMPLIFIED PROBE TQ URINE 15974 DHS/CO JARVIS 9 HEALTH CO HEALTH TEST CENTRAL [place] VISUAL [place] [address] KAI BROWNING HEAD/BRAI 8 MEDICAL ERIC P N W/O IMAGING CONTRAST ASSOCIATE MATERIAL S RADEX 76127 [facility] SPINE 8 [facility] CERVICAL INC INC 6 OR MORE VIEWS 3D 16937 KAI BROWNING, RENDERING 8 MEDICAL ERIC P W/INTERP IMAGING & ASSOCIATE POSTPROCE S SS SUPERVISI ON Encounters Encounter Start End Date Code Location Performer Type Date HOSPITAL [facility] - 6 6 [facility] OUTPATIEN INC T OFFICE 49466 [facility] OUTPATRIC 6 6 PHYSICIAN YAJAIRA T VISIT S GROUP KIAN SINGH 15 MINUTES [facility] JARVIS - 6 6 [facility] OUTPATIEN INC T EMERGENCY 26597 [facility] 6 6 [facility] DEPARTMEN INC T VISIT LIMITED/M INOR PROB [facility] - 6 6 [facility] OUTPATIEN INC T EMERGENCY 03283 JUAN TIRADO 6 6 PHYSICIAN SERENITY S, PLLC T VISIT MODERATE SEVERITY OFFICE 96605 [facility] VANESSA ROGEL 6 6 PHYSICIAN TOMMY T VISIT S GROUP 10 MINUTES [facility] JARVIS - 6 6 [facility] OUTPATIEN INC T OFFICE 38475 [facility] ALLRAN JR OUTPATIEN 5 5 PHYSICIAN TOMMY T VISIT S GROUP 15 MINUTES EMERGENCY 15972 [facility] 5 5 PHYSICIAN DEPARTMEN S, PLLC T VISIT MODERATE SEVERITY HOSPITAL [facility] - 5 5 [facility] OUTPATIEN INC T OFFICE 14061 [facility] ALLRAN JR OUTPATIEN 5 5 PHYSICIAN TOMMY T VISIT S GROUP 10 MINUTES OFFICE 63595 [facility] ALLRAN JR OUTPATIEN 5 5 PHYSICIAN TOMMY T VISIT S GROUP 15 MINUTES EMERGENCY 80934 [facility] DEPT 5 5 PHYSICIAN VISIT S, PLLC HIGH SEVERITY& THREAT FUNCJ EMERGENCY 67022 [facility]VIS 5 5 [facility] DEPARTMEN INC T VISIT LOW/MODER SEVERITY HOSPITAL [facility] - 5 5 [facility] T EMERGENCY 14624 JUAN HOOVER 5 5 PHYSICIAN Shaun EDUARDO DEPARTMEN S, PLLC T VISIT MODERATE SEVERITY EMERGENCY 72694 JUAN GREGG 5 5 PHYSICIAN FOR DEPARTMEN S, PLLC T VISIT HIGH/URGE NT SEVERITY HOSPITAL [facility] - 5 5 [facility] OUTPATIEN INC T [facility]OSP[facility] - 5 5 [facility] T [facility]OSPITAL J[facility] - 5 5 [facility] OUTPAT[facility] INC T EMERGENCY 29337 JUAN CARBALLO 5 5 PHYSICIAN RENEE DEPARTMEN S, PLLC T VISIT MODERATE SEVERITY OFFICE 25658 [facility] MARCIAL OUTPATIGRETA 5 5 PHYSICIAN MOUNIKA T VISIT S GROUP 15 MINUTES EMERGENCY 03724 JUAN JACKMAN 5 5 PHYSICIAN DEPARTMEN S, PLLC T VISIT HIGH/URGE NT SEVERITY HOSPITAL [facility] - 5 5 [facility]PATI[facility] INC T OFFICE 92357 [facility] MADINA OUTPATIEN 5 5 PHYSICIAN CAM T VISIT S GROUP 10 MINUTES HOSPITAL [facility]VIS - 5 5 [facility] INPATIENT INC OFFICE 82546 [facility] EMANUEL OUTPATIEN 5 5 PHYSICIAN BROOKS T VISIT S GROUP 15 MINUTES OFFICE 91748 A C KILPELA OUTPATIEN 5 5 TRICIA ZHU JEA T VISIT PSC 15 MINUTES OFFICE 75660 EMANUEL PRINGLEE OUTPATIEN 3 3 BROOKS BROOKS T VISIT 15 MINUTES OFFICE 63716 EMANUEL PRINGLEE OUTPATIEN 3 3 [facility]OO[facility] BROOKS T VISIT 15 MINUTES OFFICE 60669 EMANUEL PRINGLEE OUTPATIEN 3 3 [facility]KS T VISIT 15 MINUTES OFFICE 19906 EMANUEL CASTELLANOS OUTPATIEN 3 3 [facility]KS T VISIT 15 MINUTES OFFICE 38055 EMANUEL CASTELLANOS OUTPATIEN 3 3 [facility]KS T VISIT 15 MINUTES OFFICE 05925 EMANUEL CASTELLANOS OUTPATIEN 3 3 [facility] BR[facility]KS T VISIT 15 MINUTES OFFICE 66771 A C KILPELA OUTPATIEN 3 3 TRICIA ZHU JEA T VISIT PSC 15 MINUTES OFFICE 68038 EMANUEL CASTELLANOS OUTPATIEN 3 3 [facility] BROOKS T VISIT 5 MINUTES OFFICE 47719 A C KILPELA OUTPATIEN 3 3 TRICIA ZHU JEA T VISIT PSC 15 MINUTES OFFICE 38769 A C KILPELA OUTPATIEN 3 3 TRICIA ZHU JEA T VISIT PSC 15 MINUTES OFFICE 11736 EMANUEL CASTELLANOS OUTPATIEN 3 3 [facility]OOKS BROOKS T VISIT 15 MINUTES EMERGENCY 48197 MARA TERRY DEPT 2 2 CARLY CARLY VISIT HIGH SEVERITY& THREAT FUNCJ EMERGENCY 27336 [facility]IS[facility] HIGH/URGE NT SEVERITY HOSPITAL JARVIS - 2 2 [facility] OUTPATIEN [facility] T EMERGENCY 84361 JYOTSNA GOYAL 2 2 [facility] T VISIT HIGH/URGE NT SEVERITY HOSPITAL JARVIS - 2 2 [facility] 2 [facility] 21255 JARVIS 2 2 [facility] T VISIT MODERATE SEVERITY EMERGENCY 43292 CIARRA LAFLEUR 2 2 III AVTAR III [facility] T VISIT HIGH/URGE NT SEVERITY HOSPITAL JARVIS - 2 2 [facility] - 2 2 [facility] UNIVERSIT - 2 2 [facility] EMERGENCY 87263 ANASTACIA GUNN [address] [facility] SERV T VISIT FOUNDATIO HIGH/URGE NT SEVERITY PERIODIC 11163 EMANUEL CASTELLANOS PREVENTIV 2 2 [facility] E MED EST PATIENT 18-39 YRS HOSPITAL JARVIS - 2 2 [facility] 53429 ALF FERREIRA 2 2 EMERGENCY [facility] T VISIT HIGH/URGE NT SEVERITY EMERGENCY 05178 JARVIS 2 2 [facility] T VISIT MODERATE SEVERITY EMERGENCY 99211 CIARRA LAFLEUR 2 2 III AVTAR III [facility] T VISIT MODERATE SEVERITY EMERGENCY 30048 JARVIS 2 2 [facility] INC T VISIT LOW/MODER SEVERITY HOSPITAL JARVIS - 2 2 [facility] T OFFICE 45804 LANG RADHA [facility] T VISIT 15 MINUTES OFFICE 54310 EMANUEL CASTELLANOS OUTPATIEN 1 1 [facility] T VISIT 10 MINUTES OFFICE 14054 EMANUEL CASTELLANOS OUTPATIEN 1 1 [facility] T VISIT 15 MINUTES EMERGENCY 88701 ALF TERRY 1 1 EMERGENCY [facility] DEPARTMEN SERVICES T VISIT HIGH/URGE NT SEVERITY OFFICE 80621 A Domonique Byrd OUTPATIEN 1 1 [facility] T VISIT PSC 15 MINUTES HOSPITAL JARVIS - 1 1 [facility] T OFFICE 75415 A Domonique Byrd OUTPATIEN 1 1 [facility] T VISIT PSC 15 MINUTES PERIODIC 77945 JARVIS CONLEY PREVENTIV 1 1 [facility] MED EST CENTER CENTER PATIENT 18-39 YRS HOSPITAL JARVIS - 1 1 [facility] T EMERGENCY 65188 JARVIS 1 1 [facility] T VISIT HIGH/URGE NT SEVERITY EMERGENCY 57113 ALF LAFLEUR DEPT 1 1 EMERGENCY III AVTAR VISIT SERVICES HIGH SEVERITY& THREAT FUNCJ OFFICE 99360 [facility] OUTPATIEN 1 1 [facility] T VISIT 5 CLINIC OF MINUTES [place] EMERGENCY 20729 [facility] T VISIT LOW/MODER SEVERITY EMERGENCY 58163 ALF LAFLEUR 0 0 EMERGENCY III [facility] T VISIT HIGH/URGE NT SEVERITY HOSPITAL JARVIS - 0 0 [facility] T PERIODIC 73856 [facility] PREVENTIV 0 0 [facility] E MED EST CLINIC OF PATIENT [place] 18-39 YRS OFFICE 80665 A Domonique Byrd OUTPATIEN 0 0 [facility] ZHU T VISIT PSC 15 MINUTES OFFICE 88262 A Domonique Byrd OUTPATIEN 0 0 [facility] ZHU T VISIT PSC 15 MINUTES OFFICE 04933 Rochelle Byrd OUTPATIEN 0 0 TRICIA ZHU T VISIT PSC 15 MINUTES EMERGENCY 86260 [facility]VIS 0 0 [facility] DE[facility] T VISIT LOW/MODER SEVERITY HOSPITAL JARVIS - 0 0 [facility] T EMERGENCY 94842 ALF BRANCH 0 0 EMERGENCY DEPARTMEN SERVICES T VISIT MODERATE SEVERITY OFFICE 83931 [facility] OUTPATIEN 0 0 [facility] T VISIT CLINIC OF 15 [place] MINUTES OFFICE 18164 [facility], OUTPATIEN 0 0 [facility] T VISIT CLINIC OF 15 MINUTES [facility] OFF[facility] 13498 Rochelle SPENCER OUTPATIEN 0 0 TRICIA Youssef T VISIT PSC 15 MINUTES EMERGENCY 94285 ALF LAFLEUR 0 0 EMERGENCY III, DEPARTMEN SERVICES MARY CARMEN T VISIT HIGH/URGE ASSOCIATE NT S SEVERITY EMERGENCY 05318 [facility]VIS 0 0 [facility]PART[facility] T VISIT LOW/MODER SEVERITY HOSPITAL JARVIS - 0 0 [facility] OUT[facility] INC T OFFICE 44541 Rochelle SPENCER OUTPATIEN 0 0 TRICIA Youssef T VISIT PSC 15 MINUTES OFFICE 76610 VANESSA ALLRAN CONSULTAT 0 0 JR TINAJERO ION CHARLES F CHARLES F NEW/ESTAB PATIENT 80 MIN EMERGENCY 51002 J[facility]VIS DEPT 0 0 [facility] VISIT INC HIGH SEVERITY& THREAT FUN HOSPITAL JARVIS - 0 0 [facility] INC T HOSPITAL JARVIS - 0 0 [facility] OUT[facility] INC T EMERGENCY 56935 JARVIS 0 0 [facility] DEPARTMEN INC T VISIT LOW/MODER SEVERITY EMERGENCY 92826 ALF [place], 0 0 EMERGENCY NATALIE DEPARTMEN SERVICES O T VISIT HIGH/URGE ASSOCIATE NT S SEVERITY PERIODIC 35278 JARVIS JARVIS PREVENTIV 0 0 [facility] PATIENT 18-39 YRS OFFICE 19467 [facility], OUTPATIEN 9 9 [facility] T VISIT CLINIC OF 25 MINUTES [facility] OFFICE 80044 Rochelle SPENCER 9 9 TRICIA Youssef T VISIT PSC 15 MINUTES EMERGENCY 90327 [facility] MEDEL, 9 9 [facility] DEPARTMEN SERVICES T VISIT MODERATE ASSOCIATE SEVERITY S EMERGENCY [id number] JARVIS 9 9 [facility] DEPARTMEN INC T VISIT LIMITED/M INOR [facility] JARVIS - 9 9 [facility] OUTPATIEN INC T HOSPITAL JARVIS - 9 9 [facility] OUTPATIEN INC T OFFICE [id number] Rochelle SPENCER 9 9 TRICIA Youssef T VISIT [facility] 15 MINUTES [facility]OSP[facility] - 9 9 [facility] T OFFICE [id number] [facility], [facility] 9 9 [facility] T VISIT CLINIC OF 15 MINUTES [facility] OFFICE 49986 [facility], OUTPATIEN 9 9 [facility] 12248 [facility], OUTPATIEN 9 9 [facility] J T VISIT CLINIC OF 15 MINUTES [facility] EMERGENCY 10572 JARVIS 9 9 [facility] DEPARTMEN INC T VISIT LIMITED/M INOR [facility] JARVIS - 9 9 [facility] OUTPATIEN INC T OFFICE 12766 PEBBLES GAUTAM 9 9 TRICIA MOREL T VISIT [facility] 15 MINUTES OFFICE 85303 DHS/CO JARVIS ROGEL 9 9 [facility] T VISIT [facility] 25 BANK ACCT MINUTES OFFICE 52236 NUVIA PEDERSEN OUTPATIEN 8 8 DON R DON R T NEW 20 MINUTES OFFICE 22883 PEBBLES GAUTAM 8 8 TRICIA MOREL T VISIT [facility] 15 MINUTES OFFICE 84906 Rochelle SPENCER 8 8 TRICIA Corona VISIT [facility] 15 MINUTES EMERGENCY 00029 JARVIS JAQUEZ, 8 8 [facility] T VISIT PROF SERV MODERATE SEVERITY EMERGENCY 54348 JARVIS 8 8 [facility] T VISIT MODERATE SEVERITY [facility]OSPITAL JARVIS - 8 8 [facility] OUTPATIEN INC T
--- OUTSIDE RECORDS SUMMARY | 2017-02-05 14:18 | External Medical Summary Rpt ---
Author Author , Organization [employer] Address Unknown Phone Unavailable Purpose Continuity of Care Document - 06-14-1999 through 2016 Immunization Name Date Route CVX Reacti Commen Provid Is Given on t er Refuse d Td Histor H149 No (adult 2004 ical ), Inform adsorb ation ed - Source Unspec ified MMR Histor H149 No 1998 ical Inform ation - Source Unspec ified Hep B, Histor H149 No adol 1998 ical High Inform Ris ation - Source Unspec ified
--- OUTSIDE RECORDS SUMMARY | 2017-02-05 14:46 | External Medical Summary Rpt ---
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 EXAMINATI [place] [address] [facility] ABDOMINAL 6 [facility] REAL INC INC TIME W/IMAGE LIMITED URNLS DIP 69429 [facility] CAROLYN 6 PHYSICIAN STONE STICK/TAB S GROUP PA-C SAMANTHA LET RGNT NON-AUTO W/O MICRSCP COLLECTIO 06386 [facility] N VENOUS 6 [facility] BLOOD INC INC VENIPUNCT URE COMPREHEN 32437 [facility] SIVE 6 [facility] METABOLIC INC INC PANEL RADEX 92974 [facility] SPINE 6 [facility] LUMBOSACR INC INC AL MINIMUM 4 VIEWS DRUG TST G0477 [facility] PRESUMP;C 6 [facility] PBL BEING INC INC READ DC OPT OBV ONLY SEDIMENTA 46107 [facility] TION RATE 6 [facility] RBC INC INC NON-AUTOM ATED BLOOD 42850 [facility] COUNT 6 [facility] COMPLETE INC INC AUTO&AUTO DIFRNTL WBC RADEX 77789 [facility] SPINE 6 MEDICAL LUMBOSACR IMAGING AL 2/3 [place] [address] J[facility] ABDOMEN & 6 [facility] PELVIS INC INC W/O CONTRAST MATERIAL RADEX ABD 52127 [facility] COMPL 5 [facility] AQT ABD INC INC W/S/E/D VIEWS 1 VIEW CH RADEX 73258 [facility] MELLOON ABDOMEN 1 5 [facility] INC INC ANTEROPOS TERIOR VIEW RADEX 70759 [facility] [place] SCALF FIOR ABDOMEN 1 5 RADIOLOGY ANTEROPOS TERIOR VIEW AMB A0427 [facility] SERVICE 5 AMBULANCE AMBULANCE ALS SERVICE SERVICE EMERGENCY TRANSPORT LEVEL 1 GROUND A0425 [facility] MILEAGE 5 AMBULANCE AMBULANCE PER SERVICE SERVICE STATUTE MILE GROUND A0425 [facility] MILEAGE 5 AMBULANCE AMBULANCE PER SERVICE SERVICE STATUTE MILE AMB A0427 [facility] SERVICE 5 AMBULANCE AMBULANCE ALS SERVICE SERVICE EMERGENCY TRANSPORT LEVEL 1 RADIOLOGI 35666 [facility] C 5 MEDICAL EXAMINATI IMAGING ON CHEST ASS SINGLE VIEW FRONTAL AMB A0427 [facility] SERVICE 5 AMBULANCE AMBULANCE ALS SERVICE SERVICE EMERGENCY TRANSPORT LEVEL 1 GROUND A0425 [facility] MILEAGE 5 AMBULANCE AMBULANCE PER SERVICE SERVICE STATUTE MILE INSJ TEMP 78828 JUAN GREGG NDWELLG 5 PHYSICIAN FOR BLADDER S, PLLC CATHETER SIMPLE ANTIBODY 35105 [facility] HELICOBAC 5 [facility] TER INC INC PYLORI LAPAROSCO 38619 [facility] PY W/PLMT 5 [facility] INC INC OCCLUSION DEVICE OVIDUCTS ANES IPER 20797 [facility] JANE LWR ABD 5 ANESTH W/LAPS OF THE [place]UB[place] BL[place] L[place]/ [place] [address] [facility] INFUSION 5 [facility] THERAPY INC INC PROPHYLAX IS/DX EA HOUR BASIC 32662 [facility] METABOLIC 5 [facility] PANEL INC INC CALCIUM TOTAL COLLECTIO 26851 [facility] N VENOUS 5 [facility] BLOOD INC INC VENIPUNCT URE GONADOTRO 06063 [facility] PIN 5 [facility]OS[facility] CHORIONIC INC INC QUALITATI VE BLOOD 75618 [facility] COUNT 5 [facility] COMPLETE INC INC AUTO&AUTO DIFRNTL WBC REMOVAL 11137 [facility] EMANUEL NON-BIODE 5 PHYSICIAN BROOKS GRADABLE S GROUP DRUG DELIVERY IMPLANT RADEX 07714 [place] BEINE ANKLE 5 MEDICAL ALESHA COMPLETE IMAGING MINIMUM 3 ASS VIEWS INCISION 22064 JUAN AGUIRRE AUGUSTINA & 5 PHYSICIAN DRAINAGE S, PLLC ABSCESS COMPLICAT ED/MULTIP LE COMPREHEN 01049 [facility] SIVE 5 [facility] [place] [address] [facility] FREE 5 [facility] [place] [address] [facility] THYROID 5 [facility] STIMULATI INC INC NG HORMONE TSH 25 78281 [facility] HYDROXY 5 [facility] INCLUDES INC INC FRACTIONS IF PERFORMED BLOOD 19048 [facility] COUNT 5 [facility] COMPLETE INC INC AUTO&AUTO DIFRNTL WBC INCISION 40432 [facility] SHAMEKASTAD & 5 PHYSICIAN CAM DRAINAGE S GROUP ABSCESS COMPLICAT ED/MULTIP LE INITIAL 77553 [facility] SCHULSTAD INPATIENT 5 PHYSICIAN CAM CONSULT S GROUP NEW/ESTAB PT 40 MIN URINE 42724 [facility] EMANUEL 5 PHYSICIAN BROOKS TEST S GROUP VISUAL COLOR CMPRSN METHS INSJ 23659 [facility] EMANUEL NON-BIODE 5 PHYSICIAN BROOKS GRADABLE S GROUP DRUG DELIVERY IMPLANT ETONOGEST J7307 [facility] E[facility]EL REL 5 PHYSICIAN BROOKS CNTRACPT S GROUP IMPL SYS INCL IMPL & SPL NEURAXIAL 68900 [facility] LABOR 5 ANESTH CHRISTINA ANALG/ANE OF THE S PLND BLUE VAGINAL DELIVERY RADIOLOGI 54825 [place] JEANINE C 5 MEDICAL AUGUSTINA EXAMINATI IMAGING ON CHEST ASS SINGLE VIEW FRONTAL RADEX 62313 [place] JEANINE ABDOMEN 1 5 MEDICAL AUGUSTINA IMAGING ANTEROPOS ASS TERIOR VIEW VAGINAL 81100 [facility] EMANUEL DELIVERY 5 PHYSICIAN BROOKS ONLY S GROUP W/POSTPAR CHIO CARE HANDLG&/O 26979 [facility] CASTELLANOS R CONVEY 5 PHYSICIAN BROOKS OF SPEC S GROUP FOR TR OFFICE TO LAB DRUG SCR G0434 [facility] CASTELLANOS NOT 5 PHYSICIAN BROOKS CHROMATOG S GROUP RAPHIC; ANY NUMBER PT ENC IAADIADOO 29239 COMBINED COMBINED 5 PHYSICIAN PHYSICIAN STREPTOCO S LA S LA CCUS GROUP B IADNA 92907 [facility], NEISSERIA 4 [facility] GONORRHOE AE AMPLIFIED PROBE TQ IADNA 07798 [facility], CHLAMYDIA 4 [facility] TRACHOMAT IS AMPLIFIED PROBE TQ CYTP 24620 [facility], CERVICAL/ 4 [facility] VAGINAL REQ INTERP PHYSICIAN CYTP C/V 62335 [facility], AUTO THIN 4 [facility] LYR PREPJ SCR MNL RESCR PHYS VAGINAL 28599 [facility] DELIVERY 3 [facility] ONLY CLINIC OF W/POSTPAR [place] CHIO CARE NEURAXIAL 56152 MERE SEVERINO SHA LABOR 3 ANALG/ANE S PLND VAGINAL DELIVERY 10694 ASAEL CASTELLANOS NONSTRESS 3 [facility] TEST [facility]IN[facility] OF [place] CUL BACT 19556 COMBINED COMBINED XCPT 3 PHYSICIAN PHYSICIAN URINE S LA S LA BLOOD/STO OL AEROBIC ISOL 58596 [facility] CASTELLANOS BIOPHYSIC 3 [facility] BROOKS AL PROFILE W/O NON-STRES S TESTING DOPPLER 52353 [facility] CASTELLANOS VELOCIMET 3 [facility] BROOKS RY UMBILICAL ARTERY US PREG 19011 [facility] CASTELLANOS UTERUS 3 [facility] REAL TIME F/U TRNSABDL PER FETUS 40586 [facility] CASTELLANOS NONSTRESS 3 [facility] TEST DOPPLER 66417 [facility] CASTELLANOS VELOCIMET 3 [facility] BROOKS RY UMBILICAL ARTERY US PREG 49915 [facility] CASTELLANOS UTERUS 3 [facility] REAL TIME F/U TRNSABDL PER FETUS 72174 CA[facility] CASTELLANOS BIOPHYSIC 3 [facility]OOKS AL PROFILE W/O NON-STRES S TESTING GLUCOSE 69947 [facility] CASTELLANOS TOLERANCE 3 [facility]KS TEST GTT 3 SPECIMENS CUL BACT 57340 [facility] XCPT 3 DIAGNOSTI DIAGNOSTI URINE CS CS BLOOD/STO OL AEROBIC ISOL US PREG 39029 [facility] CASTELLANOS UTERUS 3 [facility] AFTER 1ST TRIMEST GESTATION US PREG 93469 CASTE[facility]OS CASTELLANOS UTERUS 3 BROOKS BROOKS AFTER 1ST TRIMEST GESTATION IADNA 18758 P[facility] PICKLESIM NEISSERIA 3 ER JR RAMSES ER JR RAMSES GONORRHOE AE AMPLIFIED PROBE TQ IADNA 55008 [facility] PICKLESIM CHLAMYDIA 3 ER JR RAMSES ER JR RAMSES TRACHOMAT IS AMPLIFIED PROBE TQ CYTP C/V 72848 P[facility] PICKLESIM AUTO THIN 3 ER JR RAMSES ER JR RAMSES LYR PREPJ SCR MNL RESCR PHYS SMR PRIM 44807 EMANUEL CASTELLANOS SRC WET 2 [place] [address] [facility] INFUSION 2 [facility] THERAPY INC INC PROPHYLAX IS/DX EA HOUR URINE 54384 [facility] 2 [facility] TEST INC INC VISUAL COLOR CMPRSN METHS BLOOD 23449 [facility] TYPING 2 [facility] SEROLOGIC INC INC RH (D) CULTURE 36602 [facility] BACTERIAL 2 [facility] INC INC QUANTTATI VE COLONY COUNT URINE TX MISSED 24363 [facility] 2 [facility] HOSP FIRST [place] [address] PATHOLOGY ESCOBEDO SURG 2 & FIOR PATHOLOGY CYTOLOGY LAB GROSS&CARLY ROSCOPIC EXAM ANESTHESI 91213 [facility] A VAGINAL 2 ANESTH CHRISTINA OF THE PROCEDURE BLUE W/[place] [address] [facility] INFUSION 2 [facility] THERAPY/P INC INC ROPHYLAXI S /DX 1ST TO 1 HR URNLS DIP 14285 [facility] 2 [facility]OS[facility] STICK/TAB INC INC LET REAGENT AUTO MICROSCOP Y BLOOD 59704 [facility] COUNT 2 [facility] COMPLETE INC INC AUTO&AUTO DIFRNTL WBC THERAPEUT 56894 [facility] IC 2 [facility] INJECTION INC INC IV PUSH EACH NEW DRUG GONADOTRO 71806 [facility] PIN 2 [facility] HOS[facility] CHORIONIC INC INC QUANTITAT PEEWEE US PREG 65459 [facility] UTERUS 2 [facility] REAL TIME INC INC W/IMAGE DCMTN TRANSVAG RADEX 17094 [facility] [place] SCAL[place] FIOR FOREARM 2 [place] [address] JYOTSNA GOYAL ULNAR 2 GAR GAR SHAFT FRACTURE W/O MANIPULAT ION RADEX 94466 [facility] [place] SCAL[place] FIOR ANKLE 2 RADIOLOGY COMPLETE MINIMUM 3 VIEWS RADEX 25695 [facility] [place] SCALF FIOR RIBS UNI 2 RADIOLOGY W/POSTERO ANT CH MINIMUM 3 VIEWS RADEX 80299 [facility] FOREARM 2 2 [facility] VIEWS INC INC WRIST L3908 MONET MONET HAND 2 HOME HOME ORTHOSIS MEDICAL MEDICAL EXT EQUIPME EQUIPME CONTROL COCK-UP PREFAB RADEX 23465 [facility] FOREARM 2 2 [facility] VIEWS INC INC INCISION 37666 [facility] & 2 [facility] DRAINAGE INC INC ABSCESS COMPLICAT ED/MULTIP LE URINE 10261 [facility] 2 [facility] TEST INC INC [place] [address] PETTEY PETTEY ULNAR 2 JAM JAM SHAFT FRACTURE W/O MANIPULAT ION RADEX 36565 [place] JEANINE SHOULDER 2 MEDICAL AUGUSTINA COMPLETE IMAGING MINIMUM 2 ASS VIEWS RADEX 12584 JEANINE JEANINE FOREARM 2 2 AUGUSTINA AUGUSTINA VIEWS RADEX 44229 MONTGOMER MONTGOMER FOREARM 2 2 Y JUS Y JUS VIEWS RADEX 97964 MONTGOMER MONTGOMER ANKLE 2 Y JUS Y JUS COMPLETE MINIM[address] [place] [address] [place] DION ANGIOGRAP 2 MEDICAL HY CHEST SERV W/CONTRAS FOUNDATIO T/[place] [address] [place] RAS[place] CERVICAL 2 MEDICAL FLA SPINE W/O SERV CONTRAST FOUNDATIO MATERIAL N RADEX 75994 MONTGOMER MONTGOMER FOOT 2 Y JUS Y JUS COMPLETE MINIMUM 3 VIEWS RADEX 28403 MONTGOMER MONTGOMER ANKLE 2 Y JUS Y JUS COMPLETE MINIMUM 3 VIEWS RADIOLOGI 52820 MONTGOMER MONTGOMER C 2 Y JUS Y JUS EXAMINATI ON KNEE 3 VIEWS RADIOLOGI 24946 MONTGOMER MONTGOMER C 2 Y JUS Y JUS EXAMINATI ON CHEST SINGLE VIEW FRONTAL AMB A0427 [facility] SERVICE 2 [facility] ALS URBAN URBAN EMERGENCY [place] [address] [place] HEAD/BRAI 2 MEDICAL FLA N W/[place] [address] [place] THORACIC 2 MEDICAL FLA SPINE W/O SERV CONTRAST FOUNDATIO MATERIAL N RADEX HIP 00624 MONTGOMER MONTGOMER 2 Y JUS Y JUS UNILATERA L COMPLETE MINIMUM 2 VIEWS RADEX 11866 MONTGOMER MONTGOMER FOREARM 2 [address] [place] [address] [place] DION ABDOMEN & 2 MEDICAL PELVIS SERV W/CONTRAS FOUNDATIO T N MATERIAL [place] LUMBAR 22812 [place] SPINE 2 MEDICAL FLA W/O SERV CONTRAST FOUNDATIO MATERIAL N RADEX 68320 EZEGOMER EZEGOMER SHOULDER 2 Y JUS Y JUS COMPLETE MINIMUM 2 VIEWS RADIOLOGI 34084 EZEGOMER EZEGOMER C 2 Y JUS Y JUS EXAMINATI ON PELVIS 1/2 VIEWS RADIOLOGI 58059 EZEGOMER EZEGOMER C 2 Y JUS Y JUS EXAMINATI ON TIBIA & FIBULA 2 VIEWS GROUND A0425 [facility] MILEAGE 2 FAYETTE FAYETTE PER URBAN URBAN STATUTE COGOVT COGOVT MILE RADEX 58870 RAINAMER RAINAMER ELBOW 2 Y JUS Y JUS COMPLETE MINIMUM 3 VIEWS RADIOLOGI 66214 RAINAMER EZEGOMER C 2 Y JUS Y JUS EXAMINATI ON FEMUR 2 VIEWS RADEX 51146 RAINAMER RAINAMER HUMERUS 2 Y JUS Y JUS MINIMUM 2 VIEWS RADEX 27219 EZEGOMER RAINAMER WRIST 2 Y JUS Y JUS COMPLETE MINIMUM 3 VIEWS REMOVAL 00218 EMANUEL CASTELLANOS NON-BIODE 2 BROO[facility] BROOKS GRADABLE DRUG DELIVERY IMPLANT RADEX 36759 [facility] ANKLE 2 [facility] COMPLETE INC INC MINIMUM 3 VIEWS RADEX 33078 [facility] FOOT 2 [facility] COMPLETE INC INC MINIMUM 3 VIEWS THERAPEUT 42460 [facility] IC 2 [facility] PROPHYLAC INC INC TIC/DX INJECTION SUBQ/IM IAADI 33202 [facility] INFLUENZA 2 [facility] B VIRUS INC INC IAADI 28348 [facility] INFFLUENZ 2 [facility] [place] [address] [facility] STREPTOCO 2 [facility] [place] [address] EMANUEL CASTELLANOS TRANSVAGI 2 BROOKS BROOKS NAL INSERTION 03000 EMANUEL CASTELLANOS 1 [facility] BROOKS IMPLANTAB LE CONTRACEP TIVE CAPSULES ETONOGEST J7307 EMANUEL CASTELLANOS REL 1 [facility] BR[facility]KS CNTRACPT IMPL SYS INCL IMPL & SPL URINE 43608 EMANUEL CASTELLANOS 1 [facility] TEST VISUAL COLOR CMPRSN METHS CUL BACT 55105 COMBINED COMBINED XCPT 1 PHYSICIAN PHYSICIAN URINE S LA S LA BLOOD/STO OL AEROBIC ISOL ANTIBODY 76226 COMBINED COMBINED CHLAMYDIA 1 PHYSICIAN PHYSICIAN S LA S LA ANTIBODY 04527 COMBINED COMBINED CHLAMYDIA 1 PHYSICIAN PHYSICIAN S LA S LA CUL BACT 82445 COMBINED COMBINED XCPT 1 PHYSICIAN PHYSICIAN URINE S LA S LA BLOOD/STO OL AEROBIC ISOL URINE 35782 [facility] 1 [facility] TEST INC INC VISUAL COLOR CMPRSN METHS CYTP 17492 PATHOLOGY PATHOLOGY CERV/VAG 1 & & AUTO THIN CYTOLOGY CYTOLOGY LAYER LAB LAB PREP MNL SCREEN URINE 22429 [facility] 1 [facility] TEST C[facility] CENTER VISUAL COLOR CMPRSN METHS IADNA 70877 [facility] CHLAMYDIA 1 [facility] CENTER TRACHOMAT IS AMPLIFIED PROBE TQ CONTRACEP A4267 [facility] TIVE 1 [facility] SUPPLY CENTER CENTER CONDOM MALE EACH IADNA 89044 [facility] NEISSERIA 1 [facility] CENTER CENTER GONORRHOE AE AMPLIFIED PROBE TQ DME A9900 [facility] SUP/ACCES 1 [facility] S/SRV-COM CENTER CENTER [place]ONY/[place] [address] [facility] MAGNESIUM 1 [facility] INC INC ECG 95490 [facility] ROUTINE 1 [facility] ECG INC INC W/LEAST 12 LDS TRCG ONLY W/O I&R COMPREHEN 84108 [facility] SIVE 1 [facility] METABOLIC INC INC PANEL ECG 67715 [facility]VIS ARAIZA ROUTINE 1 [facility] W/LEAST P 12 LDS I&R ONLY GROUND A0425 [facility] MILEAGE 1 AMBULANCE AMBULANCE PER SERVICE SERVICE STATUTE MILE ALS A0398 [facility] ROUTINE 1 AMBULANCE AMBULANCE [place] [address] [facility] INFUSION 1 [facility] THERAPY/P INC INC ROPHYLAXI S /DX 1ST TO 1 HR BLOOD 37039 [facility] COUNT 1 [facility] COMPLETE INC INC AUTO&[place] [address] [facility] INFUSION 1 [facility] THERAPY INC INC PROPHYLAX IS/DX EA HOUR AMB A0427 [facility] SERVICE 1 AMBULANCE AMBULANCE ALS SERVICE SERVICE EMERGENCY TRANSPORT LEVEL 1 URINE 47470 [facility] 1 [facility] OF VISUAL [place] COLOR CMPRSN METHS OTH 8604 [facility] INCISION 0 [facility] W/DRAINAG INC INC E SKIN&SUBC UTANEOUS TISSUE INCISION 72553 ALF KRAFTMAN & 0 EMERGENCY III AVTAR DRAINAGE SERVICES ABSCESS COMPLICAT ED/MULTIP LE REMOVAL 81421 [facility] NON-BIODE 0 [facility] GRADABLE [facility]IN[facility] OF DRUG [place] DELIVERY IMPLANT CYTP C/V 25105 PATHOLOGY PATHOLOGY AUTO THIN 0 & & LYR CYTOLOGY CYTOLOGY PREPJ SCR LAB LAB MNL RESCR PHYS IADNA 57302 A C TRICIA A STREPTOCO 0 TRICIA ZHU CCUS PSC GROUP A QUANTIFIC ATION INCISION 82347 A C TRICIA A & 0 TRICIA ZHU DRAINAGE PSC ABSCESS SIMPLE/SI NGLE ETONOGEST J7307 [facility] REL 0 [facility] CNTRACPT CLINIC OF IMPL SYS [place] INCL IMPL & SPL INSERTION 09231 [facility] CA[facility]LL[facility] 0 [facility] IMPLANTAB CLINIC OF LE [place] CONTRACEP TIVE CAPSULES URINE 97767 [facility] 0 [facility] OF VISUAL [place] COLOR CMPRSN METHS CUL BACT 09680 COMBINED COMBINED XCPT 0 PHYSICIAN PHYSICIAN URINE S LA S LA BLOOD/STO OL AEROBIC ISOL ANTIBODY 62748 COMBINED COMBINED CHLAMYDIA 0 PHYSICIAN PHYSICIAN S LA S LA ANTIBODY 95680 COMBINED COMBINED CHLAMYDIA 0 PHYSICIAN PHYSICIAN S LAB S LAB CUL BACT 19973 COMBINED COMBINED XCPT 0 PHYSICIAN PHYSICIAN URINE S LAB S LAB BLOOD/STO OL AEROBIC ISOL SMR PRIM 68246 [facility] CASTELLANOS, SRC WET 0 [facility]GT [place] [facility] REMOVAL 37835 [facility]OMEN'S EMANUEL, NON-BIODE 0 [facility]UG DELIVERY [place] IMPLANT PLLC ANTIBODY 50861 COMBINED COMBINED CHLAMYDIA 0 PHYSICIAN PHYSICIAN S LAB S LAB CUL BACT 67409 COMBINED COMBINED XCPT 0 PHYSICIAN PHYSICIAN URINE S LAB S LAB BLOOD/STO OL AEROBIC ISOL CUL BACT 98645 [facility] XCPT 0 [facility] URINE INC INC BLOOD/STO OL AEROBIC ISOL CUL BACT 49585 [facility] AEROBIC 0 [facility] ADDL INC INC METHS DEFINITIV E EA ISOL SUSCEPTIB 64459 [facility] LTY STDY 0 [facility] ANTIMICRB INC INC IAL MICRO/AGA R DILUTJ INCISION 71348 ALF LAFLEUR & 0 EMERGENCY III, DRAINAGE SERVICES MARY CARMEN GONZALEZ COMPLICAT ASSOCIATE ED/MULTIP S LE OTH 8604 [facility] INCISION 0 [facility] W/DRAINAG INC INC E SKIN&SUBC UTANEOUS TISSUE LAPAROSCO 4701 [facility] PIC 0 [facility] APPENDECT INC INC [facility] G0378 [facility] OBSERVATI 0 [facility] ON INC INC SERVICE PER HOUR LEVEL III 94866 PATHOLOGY PATHOLOGY SURG 0 & & PATHOLOGY CYTOLOGY CYTOLOGY LAB LAB GROSS&CARLY ROSCOPIC EXAM ANESTHESI 92429 [facility] Rochelle JEAN 0 ANESTH MARY CARMEN Parker [facility] [place] [place] [address] [facility] INFUSION 0 [facility] THERAPY/P INC INC ROPHYLAXI S /DX 1ST TO 1 [place] [address] [facility] INFUSION 0 [facility] THERAPY INC INC PROPHYLAX IS/DX EA HOUR LAPAROSCO 34344 ALLRAN ALLRAN PIC 0 JR, JR, APPENDECT KATARINA [place] [address] [facility] N[facility], ABDOMEN 0 MEDICAL ERIC P W/O IMAGING CONTRAST ASSOCIATE MATERIAL S URINE 52270 [facility] 0 [facility] TEST INC INC VISUAL COLOR CMPRSN METHS 3D 72637 KAI BROWNING, RENDERING 0 MEDICAL ERIC P IMAGING W/INTERP& ASSOCIATE POSTPROC S DIFF WORK STATION CT PELVIS 56165 KAI BROWNING, W/O 0 MEDICAL ERIC P CONTRAST IMAGING MATERIAL ASSOCIATE S BASIC 13440 [facility] METABOLIC 0 [facility] PANEL INC INC CALCIUM TOTAL CRITICAL 83288 ALF [place], CARE 0 EMERGENCY NATALIE ILL/INJUR SERVICES O ED PATIENT ASSOCIATE INIT S 30-74 MIN BLOOD 40032 [facility] COUNT 0 [facility] COMPLETE INC INC AUTO&AUTO DIFRNTL WBC GLUC BLD 78617 J[facility] GLUC MNTR 0 [facility] DEV INC [place] [address] [facility] LIPASE 0 [facility] INC INC URNLS DIP 11814 [facility] STICK/TAB INC INC [place] [address] J[facility]VIS CON[facility] AMYLASE 0 [facility] INC INC COMPREHEN 58618 J[facility] SIVE 0 [facility] METABOLIC INC INC PANEL URINE 79745 [facility] TEST INC INC VISUAL COLOR CMPRSN METHS CULTURE 79704 [facility] BACTERIAL 0 [facility] INC INC QUANTTATI VE COLONY COUNT URINE URNLS DIP 74161 [facility] 0 [facility] STICK/TAB INC INC LET REAGENT AUTO MICROSCOP Y GLUC BLD 47031 JARVIS CONLEY GLUC MNTR 0 [facility] CENTER CLEARED FDA SPEC HOME USE CONTRACEP A4267 J[facility] TIVE 0 [facility] CENTER CONDOM [place] EACH WET Q0111 JARVIS CON[facility] YAHAIRA 0 [facility] PRE[facility] CENTER VAGINAL CERV/SKIN SPECIMENS CYTP 32548 PATHOLOGY PATHOLOGY CERVICAL/ 0 & & VAGINAL CYTOLOGY CYTOLOGY REQ LAB LAB INTERP PHYSICIAN ALL Q0112 JARVIS CON[facility] POTASSIUM 0 [facility] CENTER HYDROXIDE PREPARATI ONS IADNA 94217 JARVIS CONLEY CHLAMYDIA 0 [facility] CENTER TRACHOMAT IS AMPLIFIED PROBE TQ SMR PRIM 74642 JARVIS CONLEY SRC WET 0 [facility] NFCT AGT CYTP 76511 PATHOLOGY PATHOLOGY CERV/VAG 0 & & AUTO THIN CYTOLOGY CYTOLOGY LAYER LAB LAB PREP MNL SCREEN IADNA 24072 JARVIS CONLEY NEISSERIA 0 [facility] GONORRHOE AE AMPLIFIED PROBE TQ INSERTION 12271 [facility], 9 [facility] IMPLANTAB [facility] OF LE CONTRACEP [place] TIVE PLLC CAPSULES ETONOGEST J7307 [facility], REL 9 [facility] PLACID[facility] J CNTRACPT CLINIC OF IMPL SYS INCL IMPL [place] & SPL PLLC CYTP C/V 25871 PATHOLOGY PATHOLOGY AUTO THIN 9 & & LYR CYTOLOGY CYTOLOGY PREPJ SCR LAB LAB MNL RESCR PHYS NEURAXIAL 90674 [facility], LABOR 9 ANESTH CHRISTIAN A ANALG/ANE OF THE S PLND [place] VAGINAL DELIVERY CUL BACT 51580 COMBINED COMBINED XCPT 9 PHYSICIAN PHYSICIAN URINE S LAB S LAB BLOOD/STO OL AEROBIC ISOL US PREG 64676 [facility], UTERUS 9 [facility] J AFTER 1ST CLINIC OF TRIMEST [place] GESTATION PLLC THERAPEUT 86696 [facility] IC 9 [facility] PROPHYLAC INC INC TIC/DX INJECTION SUBQ/IM GONADOTRO 86196 J[facility]VIS [facility] PIN 9 [facility] CHORIONIC [place] [address] [facility] ESTRIOL 9 [facility] INC INC ALPHA-FET 82913 [facility] OPROTEIN 9 [facility] SERUM INC INC IADNA 94752 CHERRI GAUTAM 9 TRICIA MOREL CCUS PSC GROUP [place] PREG 27260 [facility], UTERUS 9 [facility] J REAL TIME CLINIC OF W/IMAGE DCMTN TAMRATHIIVETH TRANSVAG PLLC CYTP C/V 61294 PATHOLOGY PATHOLOGY AUTO THIN 9 & & LYR CYTOLOGY CYTOLOGY PREPJ SCR LAB LAB MNL RESCR PHYS MUTATION 04089 MOLECULAR MOLECULAR ID 9 ENZYMATIC PATHOLOGY PATHOLOGY LAB LAB LIG/PRIME NETWORK NETWORK R XTN 1 INC INC SGM EA MOLECULAR 26207 MOLECULAR MOLECULAR 9 DIAGNOSTI PATHOLOGY PATHOLOGY CS LAB LAB INTERPRET NETWORK NETWORK ATION & INC INC REPORT MOLECULAR 36759 MOLECULAR MOLECULAR DX AMP 9 TARGET PATHOLOGY PATHOLOGY MULTIPLEX LAB LAB 1ST 2 NETWORK NETWORK SEQ INC INC MOLEC 99989 MOLECULAR MOLECULAR ISOL/XTRJ 9 HP PATHOLOGY PATHOLOGY NUCLEIC LAB LAB ACID EA NETWORK NETWORK TYPE INC INC IADNA 79082 PATHOLOGY PATHOLOGY CHLAMYDIA 9 & & CYTOLOGY CYTOLOGY TRACHOMAT LAB LAB IS AMPLIFIED PROBE TQ MOLECULAR 61794 MOLECULAR MOLECULAR DX AMP 9 TARGET PATHOLOGY PATHOLOGY MULTIPLEX LAB LAB EA ADDL NETWORK NETWORK SEQ INC INC MOLEC 77085 MOLECULAR MOLECULAR SEP&ID HI 9 RESOLU PATHOLOGY PATHOLOGY TQ EACH LAB LAB NUCLEIC NETWORK NETWORK ACID PREP INC INC IADNA 98823 PATHOLOGY PATHOLOGY NEISSERIA 9 & & CYTOLOGY CYTOLOGY GONORRHOE LAB LAB AE AMPLIFIED PROBE TQ URINE 47713 DHS/CO JARVIS 9 HEALTH CO HEALTH TEST CENTRAL RACINE VISUAL [place] [address] [place], HEAD/BRAI 8 MEDICAL ERIC P N W/O IMAGING CONTRAST ASSOCIATE MATERIAL S RADEX 09428 [facility] SPINE 8 [facility] CERVICAL INC INC 6 OR MORE VIEWS 3D 25008 [place], RENDERING 8 MEDICAL ERIC P W/INTERP IMAGING & ASSOCIATE POSTPROCE S SS SUPERVISI ON Encounters Encounter Start End Date Code Location Performer Type Date [facility] JARVIS Mcginnis 6 [facility] T OFFICE 47190 [facility] 6 6 PHYSICIAN STONE T VISIT S GROUP KIAN SAMANTHA 15 MINUTES [facility] JARVIS Mcginnis 6 [facility] OUTPATIEN INC T EMERGENCY 28312 J[facility]VIS 6 6 [facility] DEPARTMEN INC T VISIT LIMITED/M INOR PROB HOSPITAL JARVIS - 6 6 [facility] OUT[facility] INC T EMERGENCY 10486 [facility] [place] 6 6 PHYSICIAN DEPARTMEN [facility] PLL[facility] T VISIT MODERATE SEVERITY OFFICE 96838 [facility] OUTPATIEN 6 6 PHYSICIAN TOMMY T VISIT S GROUP 10 MINUTES [facility]OSPITAL [facility] - 6 6 [facility] INC T OFFICE 15020 [facility] JR OUTPATIEN 5 5 PHYSICIAN TOMMY T VISIT S GROUP 15 MINUTES EMERGENCY 53241 [facility] [place] 5 5 PHYSICIAN DEPARTMEN S, PLLC T VISIT MODERATE SEVERITY HOSPITAL JARVIS - 5 5 [facility] OUTPATIEN [facility] T OFFICE 48234 [facility] JR OUTPATIEN 5 5 PHYSICIAN TOMMY T VISIT S GROUP 10 MINUTES OFFICE 44347 [facility] JR OUTPATIEN 5 5 PHYSICIAN TOMMY T VISIT S GROUP 15 MINUTES EMERGENCY 19195 [facility] [place] DEPT 5 5 PHYSICIAN VISIT S, PLLC HIGH SEVERITY& THREAT [facility] JARVIS - 5 5 [facility] OUTPATIEN [facility] T EMERGENCY 89801 J[facility]VIS 5 5 [facility] DEPARTMEN INC T VISIT LOW/MODER SEVERITY EMERGENCY 26474 JUAN HOOVER 5 5 PHYSICIAN Shaun EDUARDO DEPARTMEN S, PLLC T VISIT MODERATE SEVERITY EMERGENCY 21766 JUAN GREGG 5 5 PHYSICIAN FOR DEPARTMEN S, PLLC T VISIT HIGH/URGE NT SEVERITY HOSPITAL JARVIS - 5 5 [facility] OUTPATIEN [facility] JARVIS - 5 5 [facility] JARVIS - 5 5 [facility] OUTPATIEN INC T EMERGENCY 76892 JUAN CARBALLO 5 5 PHYSICIAN RENEE DEPARTMEN S, PLLC T VISIT MODERATE SEVERITY OFFICE 56233 [facility] CEJA OUTPATIEN 5 5 PHYSICIAN MOUNIKA T VISIT S GROUP 15 MINUTES EMERGENCY 36413 JUAN AGUIRRE AUGUSTINA 5 5 PHYSICIAN DEPARTMEN S, PLLC T VISIT HIGH/URGE NT SEVERITY [facility]OSPITAL [facility] - 5 5 [facility] OUTPATIEN INC T OFFICE 31410 [facility] SCHULSTAD OUTPATIEN 5 5 PHYSICIAN CAM T VISIT S GROUP 10 MINUTES [facility]OSPITAL [facility] - 5 5 [facility] INPATIENT INC OFFICE 86742 [facility] CASTELLANOS OUTPATIEN 5 5 PHYSICIAN BROOKS T VISIT S GROUP 15 MINUTES OFFICE 11381 Rochelle DAVIS OUTPATIEN 5 5 TRICIA ZHU JEA T VISIT PSC 15 MINUTES Inpatient IMP Jarvis Castellanos MD (IN) 3 03:09 3 11:50 [facility] OFFICE 96023 EMANUEL CASTELLANOS OUTPATIEN 3 3 [facility] BROOKS T VISIT 15 MINUTES OFFICE 24703 EMANUEL CASTELLANOS OUTPATIEN 3 3 [facility] T VISIT 15 MINUTES OFFICE 91377 EMANUEL CASTELLANOS OUTPATIEN 3 3 [facility] T VISIT 15 MINUTES OFFICE 80823 EMANUEL CASTELLANOS OUTPATIEN 3 3 [facility] T VISIT 15 MINUTES OFFICE 60898 EMANUEL CASTELLANOS OUTPATIEN 3 3 [facility]KS T VISIT 15 MINUTES OFFICE 36068 EMANUEL CASTELLANOS OUTPATIEN 3 3 [facility] T VISIT 15 MINUTES OFFICE 40345 Rochelle DAVIS OUTPATIEN 3 3 TRICIA ZHU JERochelle T VISIT PSC 15 MINUTES OFFICE 53972 EMANUEL CASTELLANOS OUTPATIEN 3 3 [facility] T VISIT 5 MINUTES OFFICE 82993 A C EWELINAPELA OUTPATIEN 3 3 TRICIA ZHU REZA T VISIT PSC 15 MINUTES OFFICE 30952 A C EWELINAPELA OUTPATIEN 3 3 TRICIA ZHU REZA T VISIT PSC 15 MINUTES OFFICE 40887 EMANUEL CASTELLANOS OUTPATIEN 3 3 [facility] T VISIT 15 MINUTES HOSPITAL [facility] - 2 2 [facility] EMERGENCY 42966 JARVIS 2 2 [facility] T VISIT HIGH/URGE NT SEVERITY EMERGENCY 07074 MARA LEONEY DEPT 2 2 [facility] CARLY VISIT HIGH SEVERITY& THREAT FUN EMERGENCY 70396 JYOTSNA GOYAL [address] [facility] T VISIT HIGH/URGE NT SEVERITY [facility] JARVIS - 2 2 [facility]ARVIS - [address] [facility] EMERGENCY 78655 CIARRA LAFLEUR 2 2 III AVTAR III [facility] T VISIT HIGH/URGE NT SEVERITY [facility] JARVIS - [address] [facility] EMERGENCY 93968 JARVIS 2 2 [facility] T VISIT MODERATE SEVERITY [facility]OSPITAL [facility]ARVIS [facility] [address] [facility]IEN [facility]ERS[facility] 22758 ANASTACIA GUNN 2 2 [facility] T VISIT FOUNDATIO HIGH/URGE NT SEVERITY PERIODIC 31926 EMANUEL CASTELLANOS PREVENTIV 2 2 [facility] E MED EST PATIENT 18-39 YRS EMERGENCY 46364 ALF FERREIRA 2 2 EMERGENCY AVTAR DEPARTMEN SERVICES T VISIT HIGH/URGE NT SEVERITY HOSPITAL JARVIS - 2 2 [facility] OUTPATIEN INC T EMERGENCY 93679 JARVIS 2 2 [facility] DEPARTMEN INC T VISIT MODERATE SEVERITY EMERGENCY 97919 CIARRA LAFLEUR 2 2 III AVTAR III [facility] T VISIT MODERATE SEVERITY EMERGENCY 74945 JARVIS 2 2 [facility] DEPARTMEN INC T VISIT LOW/MODER SEVERITY HOSPITAL JARVIS - 2 2 [facility] OUTPATIEN INC T OFFICE 56646 LANG JUÁREZ RADHA OUTPATIEN 2 2 T VISIT 15 MINUTES OFFICE 82822 EMANUEL CASTELLANOS OUTPATIEN 1 1 [facility] T VISIT 10 MINUTES OFFICE 48383 EMANUEL CASTELLANOS OUTPATIEN 1 1 [facility]KS T VISIT 15 MINUTES EMERGENCY 67951 ALF TERRY 1 1 EMERGENCY [facility] VISIT HIGH/URGE NT SEVERITY OFFICE 34881 A Domonique Byrd OUTPATIEN 1 1 TRICIA ZHU T VISIT PSC 15 MINUTES HOSPITAL JARVIS - 1 1 [facility] OUTPATIEN INC T OFFICE 72416 A Domonique Byrd OUTPATIEN 1 1 TRICIA ZHU T VISIT PSC 15 MINUTES [facility] 86739 JARVIS CONLEY PREVENTIV 1 1 [facility] CENTER PATIENT 18-39 YRS EMERGENCY 50537 [facility] 1 1 [facility] HIGH/URGE NT SEVERITY EMERGENCY 07913 ALF LAFLEUR DEPT 1 1 EMERGENCY III AVTAR VISIT SERVICES HIGH SEVERITY& THREAT [facility] JARVIS - 1 1 [facility] OUTPATIEN INC T OFFICE 09722 [facility] OUTPATIEN 1 1 [facility] T VISIT 5 CLINIC OF MINUTES [place] EMERGENCY 29950 ALF LAFLEUR 0 0 EMERGENCY III AVTAR DEPARTMEN SERVICES T VISIT HIGH/URGE NT SEVERITY EMERGENCY 35918 [facility]VIS 0 0 [facility] DEPARTMEN INC T VISIT LOW/MODER SEVERITY [facility]OSPITAL [facility]VIS - 0 0 [facility] OUTPATIEN INC T PERIODIC 22503 [facility] PREVENTIV 0 0 [facility] E MED EST CLINIC OF PATIENT [place] 18-39 YRS OFFICE 82145 A Domonique CLARKE A OUTPATIEN 0 0 TRICIA ZHU T VISIT PSC 15 MINUTES OFFICE 79818 A Domonique Byrd OUTPATIEN 0 0 TRICIA ZHU T VISIT PSC 15 MINUTES OFFICE 78416 A Domonique CLARKE A OUTPATIEN 0 0 TRICIA ZHU T VISIT PSC 15 MINUTES EMERGENCY 90356 [facility]VIS 0 0 [facility] DEPARTMEN INC T VISIT LOW/MODER SEVERITY [facility]OSPITAL [facility]VIS - 0 0 [facility] OUTPATIEN INC T EMERGENCY 77481 ALF BRANCH 0 0 EMERGENCY DEPARTMEN SERVICES T VISIT MODERATE SEVERITY OFFICE 55330 [facility] 0 0 [facility] T VISIT CLINIC OF 15 [place] MINUTES OFFICE 64251 [facility], OUTPATIEN 0 0 [facility] J T VISIT [facility] 15 [facility] 44901 A Domonique CLARKE A OUTPATIEN 0 0 TRICIA Youssef T VISIT PSC 15 MINUTES HOSPITAL [facility]VIS - 0 0 [facility] OUTPATIEN INC T EMERGENCY 55894 ALF LAFLEUR 0 0 EMERGENCY III, DEPARTMEN SERVICES MARY CARMEN T VISIT HIGH/URGE ASSOCIATE NT S SEVERITY EMERGENCY 34705 [facility]VIS 0 0 [facility] DEPARTMEN INC T VISIT LOW/MODER SEVERITY OFFICE 89120 Rochelle SPENCER OUTPATIEN 0 0 TRICIA Youssef T VISIT PSC 15 MINUTES OFFICE 93957 VANESSA SAVAGERAN CONSULTAT 0 0 JR TINAJERO ION CHARLES F CHARLES F NEW/ESTAB PATIENT 80 MIN [facility]OSPITAL [facility] - 0 0 [facility] OUTPATIEN INC T EMERGENCY 87212 [facility]VIS DEPT 0 0 [facility] VISIT INC HIGH SEVERITY& THREAT FUNCJ EMERGENCY 03696 [facility]VIS 0 0 [facility] DEPARTMEN INC T VISIT LOW/MODER SEVERITY HOSPITAL J[facility]VIS - 0 0 [facility] OUTPATIEN INC T EMERGENCY 90451 ALF [place], 0 0 EMERGENCY NATALIE DEPARTMEN SERVICES O T VISIT HIGH/URGE ASSOCIATE NT S SEVERITY PERIODIC 55439 JARVIS CON[facility] PREVENTIV 0 0 [employer] [employer] [facility] CENTER PATIENT 18-39 YRS OFFICE 23162 [facility] OUTPATIEN 9 9 HEALTH PLACID[facility] J T VISIT CLINIC OF 25 MINUTES [facility] OFFICE 97770 Rochelle SPENCERPATIGRETA 9 9 TRICIA Youssef T VISIT PSC 15 MINUTES HOSPITAL JARVIS - 9 9 [facility] OUTPATIEN INC T EMERGENCY 09208 ALF MEDEL, 9 9 EMERGENCY MARY BETH DEPARTMEN SERVICES T VISIT MODERATE ASSOCIATE SEVERITY S EMERGENCY 13168 [facility]VIS 9 9 [facility] DEPARTMEN INC T VISIT LIMITED/M INOR PROB HOSPITAL JARVIS - 9 9 [facility] OUTPATIEN INC T OFFICE 40362 Rochelle SPENCERPATIGRETA 9 9 TRICIA Youssef T VISIT PSC 15 MINUTES OFFICE 12664 [facility] CASTELLANOSEN 9 9 HEALTH PLACIDO J T VISIT CLINIC OF 15 MINUTES [facility] JARVIS - 9 9 [facility] OUTPATIEN INC T OFFICE 18645 [facility] OUTPATIEN 9 9 HEALTH PLACID[facility] J T VISIT CLINIC OF 15 MINUTES [facility] OFFICE 37930 [facility], OUTPATIEN 9 9 HEALTH PLACIDO J T VISIT CLINIC OF 15 MINUTES [facility] JARVIS - 9 9 [facility] OUTPATIEN INC T EMERGENCY 56130 JARVIS 9 9 [facility] T VISIT LIMITED/M INOR PROB OFFICE 95179 PEBBLES GAUTAM 9 9 TRICIA MOREL T VISIT [facility] 15 MINUTES OFFICE 15674 DHS/CO JARVIS ROGEL 9 9 HEALTH CO HEALTH T VISIT [facility] 25 BANK ACCT MINUTES OFFICE 02792 NUVIA PEDERSEN OUTPATIEN 8 8 DON R DON R T NEW 20 MINUTES OFFICE 75472 PEBBLES GAUTAM 8 8 TRICIA Corona VISIT [facility] 15 MINUTES OFFICE 35518 Rochelle SPENCER 8 8 TRICIA Corona VISIT [facility] 15 MINUTES HOSPITAL JARVIS - 8 8 [facility] OUTPATIEN INC T EMERGENCY 81501 JARVIS 8 8 [facility] T VISIT MODERATE SEVERITY EMERGENCY 42779 AJRVIS JAQUEZ, 8 8 [facility] T VISIT PROF SERV MODERATE SEVERITY
--- OUTSIDE RECORDS SUMMARY | 2017-02-05 14:46 | External Medical Summary Rpt ---
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 HY CHEST SERV W/CONTRAS FOUNDAT[place] T/[place] [address] [place] RASLAU CERVICAL 2 MEDICAL FLA SPINE W/O SERV CONTRAST FOUNDATIO MATERIAL N RADEX 01191 MONTGOMER MONTGOMER FOOT 2 Y JUS Y JUS COMPLETE MINIMUM 3 VIEWS RADEX 80603 MONTGOMER MONTGOMER ANKLE 2 Y JUS Y JUS COMPLETE MINIMUM 3 VIEWS RADIOLOGI 10956 MONTGOMER MONTGOMER C 2 Y JUS Y JUS EXAMINATI ON KNEE 3 VIEWS RADIOLOGI 54217 MONTGOMER MONTGOMER C 2 Y JUS Y JUS EXAMINATI ON CHEST SINGLE VIEW FRONTAL AMB A0427 [facility] SERVICE 2 [facility] ALS URBAN URBAN EMERGENCY [place] [address] [place] [address] [place] HEAD/BRAI 2 MEDICAL FLA N W/[place] [address] [place] THORACIC 2 MEDICAL FLA SPINE W/O SERV CONTRAST FOUNDATIO MATERIAL N RADEX HIP 62319 MONTGOMER MONTGOMER 2 Y JUS Y JUS UNILATERA L COMPLETE MINIMUM 2 VIEWS RADEX 74200 MONTGOMER MONTGOMER FOREARM 2 [address] [place] [address] [place] MANNING DION ABDOMEN & 2 MEDICAL PELVIS SERV W/CONTRAS FOUNDATIO T N MATERIAL CT LUMBAR 42488 [place] RASLAU SPINE 2 MEDICAL FLA W/O SERV CONTRAST FOUNDATIO MATERIAL N RADEX 24410 EZEGOMER EZEGOMER SHOULDER 2 Y JUS Y JUS COMPLETE MINIMUM 2 VIEWS RADIOLOGI 73731 EZEGOMER EZEGOMER C 2 Y JUS Y JUS EXAMINATI ON PELVIS 1/2 VIEWS RADIOLOGI 24515 EZEGOMER EZEGOMER C 2 Y JUS Y JUS EXAMINATI ON TIBIA & FIBULA 2 VIEWS GROUND A0425 [facility] MILEAGE 2 FAYETTE FAYETTE PER URBAN URBAN STATUTE COGOVT COGOVT MILE RADEX 43340 RAINAMER RAINAMER ELBOW 2 Y JUS Y JUS COMPLETE MINIMUM 3 VIEWS RADIOLOGI 03358 RAINAMER EZEGOMER C 2 Y JUS Y JUS EXAMINATI ON FEMUR 2 VIEWS RADEX 42894 RAINAMER RAINAMER HUMERUS 2 Y JUS Y JUS MINIMUM 2 VIEWS RADEX 98540 EZEGOMER RAINAMER WRIST 2 Y JUS Y JUS COMPLETE MINIMUM 3 VIEWS REMOVAL 96253 EMANUEL CASTELLANOS NON-BIODE 2 [facility] GRADABLE DRUG DELIVERY IMPLANT RADEX 37146 JARVIS JARVIS ANKLE 2 [facility] COMPLETE INC INC MINIMUM 3 VIEWS RADEX 47394 JARVIS [facility] FOOT 2 [facility] COMPLETE INC INC MINIMUM 3 VIEWS THERAPEUT 55332 JARVIS [facility] IC 2 [facility] PROPHYLAC INC INC TIC/DX INJECTION SUBQ/IM IAADI 75231 JARVIS [facility] INFLUENZA 2 [facility] B VIRUS INC INC IAADI 42278 JARVIS [facility] INFFLUENZ 2 [facility] [place] [address] JARVIS CON[facility] STREPTOCO 2 [facility] [place] [address] EMANUEL CASTELLANOS TRANSVAGI 2 BROOKS BROOKS NAL INSERTION 45651 EMANUEL CASTELLANOS 1 [facility] IMPLANTAB LE CONTRACEP TIVE CAPSULES ETONOGEST J7307 EMANUEL CASTELLANOS REL 1 [facility] CNTRACPT IMPL SYS INCL IMPL & SPL URINE 51568 EMANUEL CASTELLANOS 1 [facility] TEST VISUAL COLOR CMPRSN METHS CUL BACT 49752 COMBINED COMBINED XCPT 1 PHYSICIAN PHYSICIAN URINE S LA S LA BLOOD/STO OL AEROBIC ISOL ANTIBODY 02914 COMBINED COMBINED CHLAMYDIA 1 PHYSICIAN PHYSICIAN S LA S LA ANTIBODY 87572 COMBINED COMBINED CHLAMYDIA 1 PHYSICIAN PHYSICIAN S LA S LA CUL BACT 75910 COMBINED COMBINED XCPT 1 PHYSICIAN PHYSICIAN URINE S LA S LA BLOOD/STO OL AEROBIC ISOL URINE 76529 [facility]VIS [facility] 1 [facility] TEST INC INC VISUAL COLOR CMPRSN METHS CYTP 04605 PATHOLOGY PATHOLOGY CERV/VAG 1 & & AUTO THIN CYTOLOGY CYTOLOGY LAYER LAB LAB PREP MNL SCREEN URINE [address] [facility] CENTER VISUAL COLOR CMPRSN METHS IADNA 86923 JARVIS CONLEY CHLAMYDIA [address] [facility] CENTER TRACHOMAT IS AMPLIFIED PROBE TQ CONTRACEP A4267 JARVIS CONLEY TIVE 1 [facility] SU[facility] CENTER CONDOM MALE EACH IADNA 12123 JARVIS CONLEY NEISSERIA 1 [facility] CENTER GONORRHOE AE AMPLIFIED PROBE TQ DME A9900 JARVIS JARVIS SUP/ACCES 1 [facility] S/SRV-COM CENTER CENTER [place]ONY/[place] [address] JARVIS CON[facility] MAGNESIUM 1 [facility] INC INC ECG 54722 JARVIS CONLEY ROUTINE 1 [facility] ECG INC INC W/LEAST 12 LDS TRCG ONLY W/O I&R COMPREHEN 74778 JARVIS [facility] SIVE 1 [facility] METABOLIC INC INC PANEL ECG 77931 JARVIS ARAIZA ROUTINE 1 [facility] W/LEAST P 12 LDS I&R ONLY GROUND A0425 GHASSAN GHASSAN MILEAGE 1 AMBULANCE AMBULANCE PER SERVICE SERVICE STATUTE MILE ALS A0398 GHASSAN GHASSAN ROUTINE 1 AMBULANCE AMBULANCE [place] [address] JARVIS [facility] INFUSION 1 [facility] THERAPY/P INC INC ROPHYLAXI S /DX 1ST TO 1 HR BLOOD 23370 JARVIS [facility]LEY COUNT 1 [facility] COMPLETE INC INC AUTO&[place] [address] JARVIS [facility] INFUSION 1 [facility] THERAPY INC INC PROPHYLAX IS/DX EA HOUR AMB A0427 [facility] SERVICE 1 AMBULANCE AMBULANCE ALS SERVICE SERVICE EMERGENCY TRANSPORT LEVEL 1 URINE 88562 [facility]OM[facility]'S CASTELLANOS 1 [facility] VISUAL [place] COLOR CMPRSN METHS OTH 8604 JARVIS [facility] INCISION 0 [facility] W/DRAINAG INC INC E SKIN&SUBC UTANEOUS TISSUE INCISION 12874 ALF KRAFTMAN & 0 EMERGENCY III AVTAR DRAINAGE SERVICES ABSCESS COMPLICAT ED/MULTIP LE REMOVAL 94219 [facility]OMEN'S CASTELLANOS NON-BIODE 0 [facility] DRUG [place] DELIVERY IMPLANT CYTP C/V 56060 PATHOLOGY PATHOLOGY AUTO THIN 0 & & LYR CYTOLOGY CYTOLOGY PREPJ SCR LAB LAB MNL RESCR PHYS IADNA 03824 A C TRICIA A STREPTOCO 0 TRICIA ZHU CCUS PSC GROUP A QUANTIFIC ATION INCISION 07718 A C TRICIA A & 0 TRICIA ZHU DRAINAGE PSC ABSCESS SIMPLE/SI NGLE ETONOGEST J7307 WOMEN'S CASTELLANOS REL 0 [facility] CNTRACPT CLINIC OF IMPL SYS [place] INCL IMPL & SPL INSERTION 61336 WOMEN'S CASTELLANOS 0 [facility] IMPLANTAB CLINIC OF LE [place] CONTRACEP TIVE CAPSULES URINE 29928 WOMEN'S CASTLELANOS 0 [facility] TEST [facility]IN[facility] OF VISUAL [place] COLOR CMPRSN METHS CUL BACT 98081 COMBINED COMBINED XCPT 0 PHYSICIAN PHYSICIAN URINE S LA S LA BLOOD/STO OL AEROBIC ISOL ANTIBODY 03138 COMBINED COMBINED CHLAMYDIA 0 PHYSICIAN PHYSICIAN S LA S LA ANTIBODY 41423 COMBINED COMBINED CHLAMYDIA 0 PHYSICIAN PHYSICIAN S LAB S LAB CUL BACT 23615 COMBINED COMBINED XCPT 0 PHYSICIAN PHYSICIAN URINE S LAB S LAB BLOOD/STO OL AEROBIC ISOL SMR PRIM 27274 WOMEN'S CASTELLANOS, SRC WET 0 [facility] NFCT AGT [place] PLLC REMOVAL 92043 WOMEN'S EMANUEL, NON-BIODE 0 [facility] DRUG DELIVERY [place] IMPLANT PLLC ANTIBODY 31097 COMBINED COMBINED CHLAMYDIA 0 PHYSICIAN PHYSICIAN S LAB S LAB CUL BACT 51809 COMBINED COMBINED XCPT 0 PHYSICIAN PHYSICIAN URINE S LAB S LAB BLOOD/STO OL AEROBIC ISOL CUL BACT 37542 J[facility]VIS [facility] XCPT 0 [facility] URINE INC INC BLOOD/STO OL AEROBIC ISOL CUL BACT 20973 JARVIS [facility] AEROBIC 0 [facility] ADDL INC INC METHS DEFINITIV E EA ISOL SUSCEPTIB 30198 JARVIS [facility] LTY STDY 0 [facility] ANTIMICRB INC INC IAL MICRO/AGA R DILUTJ INCISION 42552 ALF LAFLEUR & 0 EMERGENCY III, DRAINAGE SERVICES MARY CARMEN GONZALEZ COMPLICAT ASSOCIATE ED/MULTIP S LE OTH 8604 J[facility]VIS [facility] INCISION 0 [facility] W/DRAINAG INC INC E SKIN&SUBC UTANEOUS TISSUE LAPAROSCO 4701 JARVIS [facility] PIC 0 [facility] APPENDECT INC INC [facility] G0378 JARVIS CON[facility] OBSERVATI 0 [facility] ON INC INC SERVICE PER HOUR LEVEL III 16800 PATHOLOGY PATHOLOGY SURG 0 & & PATHOLOGY CYTOLOGY CYTOLOGY LAB LAB GROSS&CARLY ROSCOPIC EXAM ANESTHESI 64555 [facility] Rochelle JEAN 0 ANESTH MARY CARMEN Parker [facility] [place]/L[place] [address] JARVIS [facility] INFUSION 0 [facility] THERAPY/P INC INC ROPHYLAXI S /DX 1ST TO 1 [place] [address] JARVIS [facility] INFUSION 0 [facility] THERAPY INC INC PROPHYLAX IS/DX EA HOUR LAPAROSCO 41776 ALLRAN ALLRAN PIC 0 JR, JR, APPENDECT KATAR[place] [address] [facility] NAM, ABDOMEN 0 MEDICAL ERIC P W/O IMAGING CONTRAST ASSOCIATE MATERIAL S URINE 72238 J[facility]VIS [facility] 0 [facility] TEST INC INC VISUAL COLOR CMPRSN METHS 3D 45036 KAI BROWNING, RENDERING 0 MEDICAL ERIC P IMAGING W/INTERP& ASSOCIATE POSTPROC S DIFF WORK STATION CT PELVIS 96495 KAI BROWNING, W/O 0 MEDICAL ERIC P CONTRAST IMAGING MATERIAL ASSOCIATE S BASIC 62775 JARVIS [facility] METABOLIC 0 [facility] PANEL INC INC CALCIUM TOTAL CRITICAL 20394 ALF [place], CARE 0 EMERGENCY NATALIE ILL/INJUR SERVICES O ED PATIENT ASSOCIATE INIT S 30-74 MIN BLOOD 38620 JARVIS [facility] COUNT 0 [facility] COMPLETE INC INC AUTO&AUTO DIFRNTL WBC GLUC BLD 68330 JARVIS [facility] GLUC MNTR 0 [facility] DEV INC [place] [address] JARVIS [facility] LIPASE 0 [facility] INC INC URNLS DIP 44475 J[facility]VIS [facility] 0 [facility] STICK/TAB INC INC [place] [address] JARVIS [facility] AMYLASE 0 [facility] INC INC COMPREHEN 83096 JARVIS CON[facility] SIVE 0 [facility] METABOLIC INC INC PANEL URINE 44141 JARVIS CONLEY 0 [facility] TEST INC INC VISUAL COLOR CMPRSN METHS CULTURE 32076 JAVRIS CONLEY BACTERIAL 0 [facility] INC INC QUANTTATI VE COLONY COUNT URINE URNLS DIP 94648 J[facility]VIS [facility] 0 [facility] STICK/TAB INC INC LET REAGENT AUTO MICROSCOP Y GLUC BLD 87740 JARVIS CONLEY GLUC MNTR [address] [facility] CENTER CLEARED FDA SPEC HOME USE CONTRACEP A4267 JARVIS CONLEY TIVE [address] [facility] SU[facility] CENTER CONDOM MALE EACH WET Q0111 JARVIS COLNEY YAHAIRA 0 [facility] IN[facility] PREP [facility] CENTER VAGINAL CERV/SKIN SPECIMENS CYTP 36594 PATHOLOGY PATHOLOGY CERVICAL/ 0 & & VAGINAL CYTOLOGY CYTOLOGY REQ LAB LAB INTERP PHYSICIAN ALL Q0112 JARVIS CON[facility] POTASSIUM 0 [facility] HYDROXIDE PREPARATI ONS IADNA 99376 JARVIS CONLEY CHLAMYDIA 0 [facility] TRACHOMAT IS AMPLIFIED PROBE TQ SMR PRIM 37445 JARVIS CONLEY SRC WET 0 [facility] NFCT AGT CYTP 03865 PATHOLOGY PATHOLOGY CERV/VAG 0 & & AUTO THIN CYTOLOGY CYTOLOGY LAYER LAB LAB PREP MNL SCREEN IADNA 14622 JARVIS CONLEY NEISSERIA 0 [facility] GONORRHOE AE AMPLIFIED PROBE TQ INSERTION 35692 [facility] CA[facility]LL[facility], 9 [facility] IMPLANTAB CLINIC OF LE CONTRACEP [place] TIVE PLLC CAPSULES ETONOGEST J7307 [facility]OMEN'S CASTELLANOS, REL 9 [facility] J CNTRACPT CLINIC OF IMPL SYS INCL IMPL [place] & SPL PLLC CYTP C/V 23777 PATHOLOGY PATHOLOGY AUTO THIN 9 & & LYR CYTOLOGY CYTOLOGY PREPJ SCR LAB LAB MNL RESCR PHYS NEURAXIAL 18818 [facility], LABOR 9 ANESTH CHRISTIAN A ANALG/ANE OF THE S PLND [place] VAGINAL DELIVERY CUL BACT 72700 COMBINED COMBINED XCPT 9 PHYSICIAN PHYSICIAN URINE S LAB S LAB BLOOD/STO OL AEROBIC ISOL US PREG 41060 [facility]OMEN'S CASTELLANOS, UTERUS 9 [facility] AFTER 1ST CLINIC OF TRIMEST [place] GESTATION PLLC THERAPEUT 92958 JARVIS [facility] IC 9 [facility] PROPHYLAC INC INC TIC/DX INJECTION SUBQ/IM GONADOTRO 15893 JARVIS [facility] PIN 9 [facility] CHORIONIC [place] [address] J[facility]VIS [facility] ESTRIOL 9 [facility] INC INC ALPHA-FET 53461 JARVIS [facility] OPROTEIN 9 [facility] SERUM INC INC IADNA 64106 CHERRI GAUTAM 9 TRICIA MOREL CCUS PSC GROUP A QUANTIFIC ATION US PREG 04051 [facility] CASTELL[facility], UTERUS 9 [facility] J REAL TIME CLINIC OF W/IMAGE DCMTN TAMRATHIIVETH TRANSVAG PLLC CYTP C/V 31077 PATHOLOGY PATHOLOGY AUTO THIN 9 & & LYR CYTOLOGY CYTOLOGY PREPJ SCR LAB LAB MNL RESCR PHYS MUTATION 85076 MOLECULAR MOLECULAR ID 9 ENZYMATIC PATHOLOGY PATHOLOGY LAB LAB LIG/PRIME NETWORK NETWORK R XTN 1 INC INC SGM EA MOLECULAR 70286 MOLECULAR MOLECULAR 9 DIAGNOSTI PATHOLOGY PATHOLOGY CS LAB LAB INTERPRET NETWORK NETWORK ATION & INC INC REPORT MOLECULAR 77502 MOLECULAR MOLECULAR DX AMP 9 TARGET PATHOLOGY PATHOLOGY MULTIPLEX LAB LAB 1ST 2 NETWORK NETWORK SEQ INC INC MOLEC 15730 MOLECULAR MOLECULAR ISOL/XTRJ 9 HP PATHOLOGY PATHOLOGY NUCLEIC LAB LAB ACID EA NETWORK NETWORK TYPE INC INC IADNA 25034 PATHOLOGY PATHOLOGY CHLAMYDIA 9 & & CYTOLOGY CYTOLOGY TRACHOMAT LAB LAB IS AMPLIFIED PROBE TQ MOLECULAR 06020 MOLECULAR MOLECULAR DX AMP 9 TARGET PATHOLOGY PATHOLOGY MULTIPLEX LAB LAB EA ADDL NETWORK NETWORK SEQ INC INC MOLEC 28087 MOLECULAR MOLECULAR SEP&ID HI 9 RESOLU PATHOLOGY PATHOLOGY TQ EACH LAB LAB NUCLEIC NETWORK NETWORK ACID PREP INC INC IADNA 93862 PATHOLOGY PATHOLOGY NEISSERIA 9 & & CYTOLOGY CYTOLOGY GONORRHOE LAB LAB AE AMPLIFIED PROBE TQ URINE 12250 DHS/CO JARVIS 9 [facility]ALTH CO [facility] VISUAL [place] [address] [place] NAM, HEAD/BRAI 8 MEDICAL ERIC P N W/O IMAGING CONTRAST ASSOCIATE MATERIAL S RADEX 62642 JARVIS [facility] SPINE 8 [facility] CERVICAL INC INC 6 OR MORE VIEWS 3D 09685 [place] NAM, RENDERING 8 MEDICAL ERIC P W/INTERP IMAGING & ASSOCIATE POSTPROCE S SS SUPERVISI ON Encounters Encounter Start End Date Code Location Performer Type Date [facility] JARVIS Mcginnis 6 [facility] OUTPATIEN INC T OFFICE 74756 [facility] PHYSICIAN STONE T VISIT S GROUP KIAN SAMANTHA 15 MINUTES [facility] JARVIS Mcginnis 6 [facility] OUTPATIEN INC T EMERGENCY 06696 JARVIS 6 6 [facility] DEPARTMEN INC T VISIT LIMITED/M [facility] JARVIS - 6 6 [facility] OUTPATIEN INC T EMERGENCY 28005 JUAN MURRAY [facility] 6 6 PHYSICIAN DEPARTMEN S, PLLC T VISIT MODERATE SEVERITY OFFICE 28589 [facility] ALLRAN OUTPATIEN 6 6 PHYSICIAN TOMMY T VISIT S GROUP 10 MINUTES HOSPITAL JARVIS - 6 6 [facility] OUTPATIEN INC T OFFICE 82640 [facility] ALLRAN JR OUTPATIEN 5 5 PHYSICIAN TOMMY T VISIT S GROUP 15 MINUTES EMERGENCY 17557 JUAN MURRAY [facility] 5 5 PHYSICIAN DEPARTMEN S, PLLC T VISIT MODERATE SEVERITY HOSPITAL JARVIS - 5 5 [facility] OUTPATIEN [facility] T OFFICE 28533 [facility] ALLRAN JR OUTPATIEN 5 5 PHYSICIAN TOMMY T VISIT S GROUP 10 MINUTES OFFICE 05305 [facility] ALLRAN JR OUTPATIEN 5 5 PHYSICIAN TOMMY T VISIT S GROUP 15 MINUTES EMERGENCY 57818 JUAN MURRAY [facility] DEPT 5 5 PHYSICIAN VISIT S, PLLC HIGH SEVERITY& THREAT [facility] JARVIS - 5 5 [facility]IEN [facility] T EMERGENCY 15368 JARVIS 5 5 [facility] DEPARTMEN INC T VISIT LOW/MODER SEVERITY EMERGENCY 51120 JUAN HOOVER 5 5 PHYSICIAN Shaun EDUARDO DEPARTMEN S, PLLC T VISIT MODERATE SEVERITY EMERGENCY 41140 JUAN GREGG 5 5 PHYSICIAN FOR DEPARTMEN S, PLLC T VISIT HIGH/URGE NT SEVERITY HOSPITAL JARVIS - 5 5 [facility] JARVIS - 5 5 [facility]PATIEN [facility] JARVIS - 5 5 [facility] OUTPATIEN INC T EMERGENCY 34855 JUAN CARBALLO 5 5 PHYSICIAN RENEE DEPARTMEN S, PLLC T VISIT MODERATE SEVERITY OFFICE 28012 [facility] CEJA OUTPATIEN 5 5 PHYSICIAN MOUNIKA T VISIT S GROUP 15 MINUTES EMERGENCY 07044 JUAN AGUIRRE AUGUSTINA 5 5 PHYSICIAN DEPARTMEN S, PLLC T VISIT HIGH/URGE NT SEVERITY HOSPITAL JARVIS - 5 5 [facility] OUTPATIEN INC T OFFICE 92423 [facility] SCHULSTAD OUTPATIEN 5 5 PHYSICIAN CAM T VISIT S GROUP 10 MINUTES HOSPITAL JARVIS - 5 5 [facility] INPATIENT INC OFFICE 00830 [facility] CASTELLANOS OUTPATIEN 5 5 PHYSICIAN BROOKS T VISIT S GROUP 15 MINUTES OFFICE 21491 Rochelle DAVIS OUTPATIEN 5 5 TRICIA ZHU JEA T VISIT PSC 15 MINUTES Inpatient IMP Jarvis Castellanos MD (IN) 3 03:09 3 11:50 [facility] OFFICE 62122 EMANUEL CASTELLANOS OUTPATIEN 3 3 [facility] BR[facility]KS T VISIT 15 MINUTES OFFICE 28380 EMANUEL CASTELLANOS OUTPATIEN 3 3 [facility] T VISIT 15 MINUTES OFFICE 36246 EMANUEL CASTELLANOS OUTPATIEN 3 3 [facility] T VISIT 15 MINUTES OFFICE 47575 EMANUEL CASTELLANOS OUTPATIEN 3 3 [facility] T VISIT 15 MINUTES OFFICE 75365 EMANUEL CASTELLANOS OUTPATIEN 3 3 [facility]OOKS T VISIT 15 MINUTES OFFICE 66450 EMANUEL CASTELLANOS OUTPATIEN 3 3 [facility]KS T VISIT 15 MINUTES OFFICE 75666 Rochelle DAVIS OUTPATIEN 3 3 TRICIA ZHU JERochelle T VISIT PSC 15 MINUTES OFFICE 78567 EMANUEL CASTELLANOS OUTPATIEN 3 3 [facility]KS T VISIT 5 MINUTES OFFICE 32692 A C EWELINAPELA OUTPATIEN 3 3 TRICIA ZHU REZA T VISIT PSC 15 MINUTES OFFICE 22873 A C EWELINAPELA OUTPATIEN 3 3 TRICIA ZHU REZA T VISIT PSC 15 MINUTES OFFICE 97225 EMANUEL CASTELLANOS OUTPATIEN 3 3 [facility] T VISIT 15 MINUTES [facility]OSPITAL [facility] - [facility] 93501 JARVIS 2 2 [facility] T VISIT HIGH/URGE NT SEVERITY EMERGENCY 32505 MARA LEONEY DEPT 2 2 [facility] CARLY VISIT HIGH SEVERITY& THREAT FUN EMERGENCY 87276 JYOTSNA GOYAL [address] [facility] T VISIT HIGH/URGE NT SEVERITY [facility] JARVIS - 2 2 [facility] J[facility] 2 2 [facility] 71459 CIARRA LAFLEUR 2 2 III AVTAR III [facility] T VISIT HIGH/URGE NT SEVERITY [facility] JARVIS - 2 2 [facility] 53881 JARVIS 2 2 [facility] T VISIT MODERATE [facility]VERITY [facility]OSPITAL JARVIS - 2 2 [facility] OUTPATIEN [facility] UNIVERSIT - 2 2 [facility] 10877 ANASTACIA GUNN 2 2 [facility] T VISIT FOUNDATIO HIGH/URGE NT SEVERITY PERIODIC 44516 EMANUEL CASTELLANOS PREVENTIV 2 2 [facility] MED EST PATIENT 18-39 YRS EMERGENCY 86455 ALF FERREIRA 2 2 EMERGENCY [facility] DEPARTMEN SERVICES T VISIT HIGH/URGE NT SEVERITY [facility]OSPITAL J[facility]VIS - 2 2 [facility] OUT[facility] INC T EMERGENCY 40015 JARVIS 2 2 [facility] DEPARTMEN INC T VISIT MODERATE SEVERITY EMERGENCY 63993 CIARRA LAFLEUR 2 2 III [facility] III [facility] DEPARTMEN T VISIT MODERATE SEVERITY EMERGENCY 85524 JARVIS 2 2 [facility] DEPARTMEN INC T VISIT LOW/MODER SEVERITY [facility]OSPITAL J[facility]VIS - 2 2 [facility] INC T OFFICE 91845 LANG JUÁREZ RADHA OUTPATIEN 2 2 T VISIT 15 MINUTES OFFICE 13688 EMANUEL CASTELLANOS OUTPATIEN 1 1 [facility] T VISIT 10 MINUTES OFFICE 30054 EMANUEL CASTELLANOS OUTPATIEN 1 1 [facility] T VISIT 15 MINUTES EMERGENCY 14646 ALF TERRY 1 1 [facility]IS[facility] HIGH/URGE NT SEVERITY OFFICE 49462 A Domonique Byrd OUTPATIEN 1 1 TRICIA ZHU T VISIT PSC 15 MINUTES [facility]OSPITAL [facility]VIS - 1 1 [facility] INC T OFFICE 57902 A Domonique Byrd OUTPATIEN 1 1 TRICIA ZHU T VISIT PSC 15 MINUTES [facility] 80358 JARVIS [place]LEY PREVENTIV 1 1 [facility] PATIENT 18-39 YRS EMERGENCY 52376 [facility] HIGH/URGE NT SEVERITY EMERGENCY 81411 ALF LAFLEUR DEPT 1 1 EMERGENCY III AVTAR VISIT SERVICES HIGH SEVERITY& THREAT [facility] JARVIS - 1 1 [facility] INC T OFFICE 00269 [facility] OUTPATIEN 1 1 [facility] T VISIT 5 CLINIC OF MINUTES [place] EMERGENCY 50935 ALF LAFLEUR 0 0 EMERGENCY III AVATR DEPARTMEN SERVICES T VISIT HIGH/URGE NT SEVERITY EMERGENCY 81499 [facility]VIS 0 0 [facility] DEPART[facility] T VISIT LOW/MODER SEVERITY [facility]OSPITAL [facility] - 0 0 [facility] OUT[facility] INC T PERIODIC 50980 [facility] PREVENTIV 0 0 [facility] E MED EST CLINIC OF PATIENT [place] 18-39 YRS OFFICE 69758 A Domonique CLARKE A OUTPATIEN 0 0 TRICIA ZHU T VISIT PSC 15 MINUTES OFFICE 81235 A Domonique Byrd OUTPATIEN 0 0 TRIC[facility] ZHU T VISIT PSC 15 MINUTES OFFICE 32550 A Domonique CLARKE A OUTPATIEN 0 0 TRICIA ZHU T VISIT PSC 15 MINUTES EMERGENCY 74750 [facility]VIS 0 0 [facility] DEPARTMEN INC T VISIT LOW/MODER SEVERITY [facility]OSPITAL [facility] - 0 0 [facility] OUT[facility] INC T EMERGENCY 66712 ALF BRANCH 0 0 EMERGENCY DEPARTMEN SERVICES T VISIT MODERATE SEVERITY OFFICE 61647 [facility] OUTPATIEN 0 0 [facility] T VISIT CLINIC OF 15 [place] MINUTES OFFICE 75404 [facility], OUTPATIEN 0 0 [facility] T VISIT [facility] 15 MIN[facility]ES [facility] 05383 A Domonique CLARKE A OUTPATIEN 0 0 TRICIA Youssef T VISIT PSC 15 MINUTES [facility]OSPITAL [facility]VIS - 0 0 [facility] OUTPATI[facility] INC T EMERGENCY 16197 ALF LAFLEUR 0 0 EMERGENCY III, DEPARTMEN SERVICES MARY CARMEN T VISIT HIGH/URGE ASSOCIATE NT S SEVERITY EMERGENCY 94479 [facility] 0 0 [facility] DEPARTMEN INC T VISIT LOW/MODER SEVERITY OFFICE 87119 Rochelle SPENCER OUTPATIEN 0 0 TRICIA Youssef T VISIT PSC 15 MINUTES OFFICE 99818 VANESSA SAVAGERAN CONSULTAT 0 0 JR TINAJERO ION CHARLES F CHARLES F NEW/ESTAB PATIENT 80 MIN [facility] T EMERGENCY 95325 [facility] DEPT 0 0 [facility] VISIT INC HIGH SEVERITY& THREAT FUNCJ EMERGENCY 33678 [facility] 0 0 [facility] DEPARTMEN INC T VISIT LOW/MODER SEVERITY [facility] - [facility] 0 [facility] T EMERGENCY 91904 ALF [place], 0 0 EMERGENCY NATALIE DEPARTMEN SERVICES O T VISIT HIGH/URGE ASSOCIATE NT S SEVERITY PERIODIC 23781 [facility]VIS CONLEY PREVENTIV 0 0 [place] Mobile-XL [facility] CENTER PATIENT 18-39 YRS OFFICE 47587 W[facility] OUTPATIEN 9 9 [facility] J T VISIT CLINIC OF 25 MINUTES [facility] OFFICE 69895 Rochelle SPENCERPATIGRETA 9 9 TRICIA Youssef T VISIT PSC 15 MINUTES [facility] - 9 9 [facility] OUTPATIEN INC T EMERGENCY 05200 ALF MEDEL, 9 9 EMERGENCY MARY BETH DEPARTMEN SERVICES T VISIT MODERATE ASSOCIATE SEVERITY S EMERGENCY 79817 [facility] 9 9 [facility] DEPARTMEN INC T VISIT LIMITED/M INOR PROB [facility]OSPITAL [facility] - 9 9 [facility] OUTPATIEN INC T OFFICE 71638 Rochelle SPENCERPATIGRETA 9 9 TRICIA Youssef T VISIT PSC 15 MINUTES OFFICE 14306 [facility] RUS[facility] CASTELLANOSEN 9 9 HEALTH PLACIDO J T VISIT CLINIC OF 15 MINUTES [facility] - 9 9 [facility] OUTPATIEN INC T OFFICE 84734 [facility] OUTPATIEN 9 9 [facility] J T VISIT CLINIC OF 15 MINUTES [facility] OFFICE 39833 [facility], OUTPATIEN 9 9 HEALTH PLACID[facility] J T VISIT CLINIC OF 15 MINUTES [facility] JARVIS - 9 9 [facility] T EMERGENCY 86797 J[facility]VIS 9 9 [facility] T VISIT LIMITED/M INOR PROB OFFICE 88045 PEBBLES GAUTAM 9 9 TRICIA MOREL T VISIT [facility] 15 MINUTES OFFICE 74818 DHS/CO JARVIS ROGEL 9 9 HEALTH CO HEALTH T VISIT [facility] 25 BANK ACCT MINUTES OFFICE 46244 [place] PEDERSEN OUTPATIEN 8 8 DON R DON R T NEW 20 MINUTES OFFICE 88869 PEBBLES GAUTAM 8 8 TRICIA [place]ona VISIT [facility] 15 MINUTES OFFICE 75847 Rochelle SPENCER 8 8 TRICIA [place] VISIT [facility] 15 MINUTES HOSPITAL J[facility]VIS - 8 8 [facility] T EMERGENCY 36819 J[facility]VIS 8 8 [facility] T VISIT MODERATE SEVERITY EMERGENCY 37233 JARVIS JAQUEZ, 8 8 [facility] T VISIT PROF SERV MODERATE SEVERITY
--- OUTSIDE RECORDS SUMMARY | 2017-02-05 14:55 | External Medical Summary Rpt ---
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 W/POSTERO ANT CH MINIMUM 3 VIEWS RADEX 26126 [facility] [place] SCALF FIOR ANKLE 2 RADIOLOGY COMPLETE MINIMUM 3 VIEWS RADEX 04147 [facility] FOREARM 2 2 [facility] VIEWS INC INC WRIST L3908 MONET MONET HAND 2 HOME HOME ORTHOSIS MEDICAL MEDICAL EXT EQUIPME EQUIPME CONTROL COCK-UP PREFAB RADEX 34547 [facility] FOREARM 2 2 [facility] VIEWS INC INC URINE 35075 [facility] 2 [facility] TEST INC INC VISUAL COLOR CMPRSN METHS INCISION 04843 [facility] & 2 [facility] DRAINAGE INC INC ABSCESS COMPLICAT ED/[place] [address] PETTEY PETTEY ULNAR 2 JAM JAM SHAFT FRACTURE W/O MANIPULAT ION RADEX 95250 [place] JEANINE SHOULDER 2 MEDICAL AUGUSTINA COMPLETE IMAGING MINIMUM 2 ASS VIEWS RADEX 98416 JEANINE JEANINE FOREARM 2 2 AUGUSTINA AUGUSTINA VIEWS RADEX 73094 [place] DUNCAN FOREARM 2 2 Y JUS Y JUS VIEWS RADEX 19158 RAINAMER EZEGOMER ANKLE 2 Y JUS Y JUS COMPLETE MINIMUM 3 VIEWS RADIOLOGI 32262 MONTGOMER MONTGOMER C 2 Y JUS Y JUS EXAMINATI ON KNEE 3 VIEWS RADIOLOGI 78883 MONTGOMER MONTGOMER C 2 Y JUS Y JUS EXAMINATI ON CHEST SINGLE VIEW FRONTAL AMB A0427 RUTH RUTH SERVICE 2 FAYETTE FAYETTE ALS URBAN URBAN EMERGENCY COGOVT COGOVT TRANSPORT LEVEL 1 RADEX 91669 MONTGOMER MONTGOMER FOOT 2 Y JUS Y JUS COMPLETE MINIMUM 3 VIEWS RADEX 93236 MONTGOMER MONTGOMER ANKLE 2 Y JUS Y JUS COMPLETE MINIM[address] [place] [address] [place] MANNING DION ANGIOGRAP 2 MEDICAL HY CHEST SERV W/CONTRAS FOUNDATIO T/[place] [address] [place] CERVICAL 2 MEDICAL FLA SPINE W/O SERV CONTRAST FOUNDATIO MATERIAL N RADEX 68003 MONTGOMER MONTGOMER ELBOW 2 Y JUS Y JUS COMPLETE MINIMUM 3 VIEWS RADIOLOGI 83831 MONTGOMER MONTGOMER C 2 Y JUS Y JUS EXAMINATI ON FEMUR 2 VIEWS RADEX 73249 MONTGOMER MONTGOMER SHOULDER 2 Y JUS Y JUS COMPLETE MINIMUM 2 VIEWS RADIOLOGI 29325 MONTGOMER MONTGOMER C 2 Y JUS Y JUS EXAMINATI ON PELVIS 1/2 VIEWS RADIOLOGI 01172 MONTGOMER MONTGOMER C 2 Y JUS Y JUS EXAMINATI ON TIBIA & FIBULA 2 VIEWS GROUND A0425 RUTH RUTH MILEAGE 2 FAYETTE FAYETTE PER URBAN [place] [address] [place] MANNING DION ABDOMEN & 2 MEDICAL PELVIS SERV W/CONTRAS FOUNDATIO T N MATERIAL [place] LUMBAR 95509 [place] RASLAU SPINE 2 MEDICAL FLA W/O SERV CONTRAST FOUNDATIO MATERIAL N RADEX 37956 MONTGOMER MONTGOMER HUMERUS 2 Y JUS Y JUS MINIMUM 2 VIEWS RADEX 67918 MONTGOMER MONTGOMER WRIST 2 Y JUS Y JUS COMPLETE MINIMUM 3 VIEWS RADEX HIP 72026 MONTGOMER MONTGOMER 2 Y JUS Y JUS UNILATERA L COMPLETE MINIMUM 2 VIEWS RADEX 08286 MONTGOMER MONTGOMER FOREARM 2 [address] [place] [address] [place] HEAD/BRAI 2 MEDICAL FLA N W/[place] [address] [place] THORACIC 2 MEDICAL FLA SPINE W/O SERV CONTRAST FOUNDATIO MATERIAL N REMOVAL 72378 EMANUEL CASTELLANOS NON-BIODE 2 [facility] GRADABLE DRUG DELIVERY IMPLANT RADEX 81964 [facility] ANKLE 2 [facility] COMPLETE INC INC MINIMUM 3 VIEWS RADEX 44503 [facility] FOOT 2 [facility] COMPLETE INC INC MINIMUM 3 VIEWS THERAPEUT 80640 [facility] IC 2 [facility] PROPHYLAC INC INC TIC/DX INJECTION SUBQ/IM IAADI 30330 [facility] INFFLUENZ 2 [facility] A A VIRUS INC INC IAADI 96138 [facility] INFLUENZA 2 [facility] [place] [address] [facility] STREPTOCO 2 [facility] [place] [address] EMANUEL CASTELLANOS TRANSVAGI 2 [facility] NAL URINE 64666 EMANUEL CASTELLANOS 1 [facility] TEST VISUAL COLOR CMPRSN METHS INSERTION 46107 EMANUEL CASTELLANOS 1 [facility] IMPLANTAB LE CONTRACEP TIVE CAPSULES ETONOGEST J7307 EMANUEL CASTELLANOS REL 1 [facility] CNTRACPT IMPL SYS INCL IMPL & SPL CUL BACT 52367 COMBINED COMBINED XCPT 1 PHYSICIAN PHYSICIAN URINE S LA S LA BLOOD/STO OL AEROBIC ISOL ANTIBODY 13312 COMBINED COMBINED CHLAMYDIA 1 PHYSICIAN PHYSICIAN S LA S LA ANTIBODY 03843 COMBINED COMBINED CHLAMYDIA 1 PHYSICIAN PHYSICIAN S LA S LA CUL BACT 83511 COMBINED COMBINED XCPT 1 PHYSICIAN PHYSICIAN URINE S LA S LA BLOOD/STO OL AEROBIC ISOL URINE 44874 [facility] 1 [facility] TEST INC INC VISUAL COLOR CMPRSN METHS CYTP 87906 PATHOLOGY PATHOLOGY CERV/VAG 1 & & AUTO THIN CYTOLOGY CYTOLOGY LAYER LAB LAB PREP MNL SCREEN IADNA 43054 [facility] NEISSERIA 1 [facility] GONORRHOE AE AMPLIFIED PROBE TQ URINE 21356 J[facility] 1 [facility] VISUAL COLOR CMPRSN METHS IADNA 72189 [facility] CHLAMYDIA 1 [facility] TRACHOMAT IS AMPLIFIED PROBE TQ CONTRACEP A4267 [facility] TIVE 1 [facility] CONDOM MALE EACH DME A9900 J[facility] SUP/ACCES 1 [facility] S/[facility] [place] [address] [facility] MAGNESIUM 1 [facility] INC INC ECG 99398 J[facility] ROUTINE 1 [facility] ECG INC INC W/LEAST 12 LDS TRCG ONLY W/O I&R ECG 50511 JARVIS ARAIZA ROUTINE 1 [facility] W/LEAST P 12 LDS I&R ONLY GROUND A0425 [facility] MILEAGE 1 AMBULANCE AMBULANCE PER SERVICE SERVICE STATUTE MILE ALS A0398 [facility] ROUTINE 1 AMBULANCE AMBULANCE [place] [address] [facility] INFUSION 1 [facility] THERAPY/P INC INC ROPHYLAXI S /DX 1ST TO 1 HR BLOOD 56613 JARVIS J[facility]VIS COUNT 1 [facility] COMPLETE INC INC AUTO&AUTO DIFRNTL WBC COMPREHEN 56823 [facility] SIVE 1 [facility] [place] [address] [facility] INFUSION 1 [facility] THERAPY INC INC PROPHYLAX IS/DX EA HOUR AMB A0427 [facility] SERVICE 1 AMBULANCE AMBULANCE ALS SERVICE SERVICE EMERGENCY TRANSPORT LEVEL 1 URINE 01818 [facility] VISUAL [place] COLOR CMPRSN METHS INCISION 23118 ALF LAFLEUR & 0 EMERGENCY III AVTAR DRAINAGE SERVICES ABSCESS COMPLICAT ED/MULTIP LE OTH 8604 [facility] INCISION 0 [facility] W/DRAINAG INC INC E SKIN&SUBC UTANEOUS TISSUE CYTP C/V 89884 PATHOLOGY PATHOLOGY AUTO THIN 0 & & LYR CYTOLOGY CYTOLOGY PREPJ SCR LAB LAB MNL RESCR PHYS REMOVAL 75265 [facility] NON-BIODE 0 [facility] DRUG [place] DELIVERY IMPLANT IADNA 82364 A C TRICIA A STREPTOCO 0 TRICIA ZHU CCUS PSC GROUP A QUANTIFIC ATION INCISION 99118 A C TRICIA A & 0 TRICAI ZHU DRAINAGE PSC ABSCESS SIMPLE/SI NGLE URINE 73676 [facility] 0 [facility] VISUAL [place] COLOR CMPRSN METHS ETONOGEST J7307 [facility]OMEN'[facility] CASTELLANOS REL 0 [facility] CNTRACPT CLINIC OF IMPL SYS [place] INCL IMPL & SPL INSERTION 20624 [facility] 0 [facility] IMPLANTAB [facility]IC OF LE [place] CONTRACEP TIVE CAPSULES CUL BACT 74547 COMBINED COMBINED XCPT 0 PHYSICIAN PHYSICIAN URINE S LA S LA BLOOD/STO OL AEROBIC ISOL ANTIBODY 10183 COMBINED COMBINED CHLAMYDIA 0 PHYSICIAN PHYSICIAN S LA S LA CUL BACT 56569 COMBINED COMBINED XCPT 0 PHYSICIAN PHYSICIAN URINE S LAB S LAB BLOOD/STO OL AEROBIC ISOL ANTIBODY 95055 COMBINED COMBINED CHLAMYDIA 0 PHYSICIAN PHYSICIAN S LAB S LAB SMR PRIM 70519 [facility] CASTELL[facility], SRC WET 0 [facility] AGT [place] PLLC REMOVAL 17600 [facility], NON-BIODE 0 [facility] DELIVERY [place] IMPLANT PLLC CUL BACT 19559 COMBINED COMBINED XCPT 0 PHYSICIAN PHYSICIAN URINE S LAB S LAB BLOOD/STO OL AEROBIC ISOL ANTIBODY 50812 COMBINED COMBINED CHLAMYDIA 0 PHYSICIAN PHYSICIAN S LAB S LAB CUL BACT 05469 [facility] XCPT 0 [facility] URINE INC INC BLOOD/STO OL AEROBIC ISOL CUL BACT 19723 [facility] AEROBIC 0 [facility] ADDL INC INC METHS DEFINITIV E EA ISOL SUSCEPTIB 39486 [facility] LTY STDY 0 [facility] ANTIMICRB INC INC IAL MICRO/AGA R DILUTJ INCISION 09863 ALF LAFLEUR & 0 EMERGENCY III, DRAINAGE SERVICES MARY CARMEN GONZALEZ COMPLICAT ASSOCIATE ED/MULTIP S LE OTH 8604 [facility] INCISION 0 [facility] W/DRAINAG INC INC E SKIN&SUBC UTANEOUS TISSUE LAPAROSCO 4701 [facility] PIC 0 [facility] [place] [address] [facility] INFUSION 0 [facility] THERAPY/P INC INC ROPHYLAXI S /DX 1ST TO 1 HR [facility] G0378 [facility] OBSERVATI 0 [facility] ON INC INC SERVICE PER HOUR LEVEL III 42038 PATHOLOGY PATHOLOGY SURG 0 & & PATHOLOGY CYTOLOGY CYTOLOGY LAB LAB GROSS&CARLY ROSCOPIC EXAM ANESTHESI 34162 [facility] JEAN, A 0 ANESTH MARY CARMEN Parker INTRAPERI OF THE TONEAL [place] W/[place] [address] [facility] INFUSION 0 [facility] THERAPY INC INC PROPHYLAX IS/DX EA HOUR LAPAROSCO 29401 ALLRAN ALLRAN PIC 0 JR, JR, [place] [address] [place] NAM, ABDOMEN 0 MEDICAL ERIC P W/O IMAGING CONTRAST ASSOCIATE MATERIAL S URINE 08828 [facility]VIS [facility] 0 [facility] TEST INC INC VISUAL COLOR CMPRSN METHS BASIC 31999 [facility] METABOLIC 0 [facility] PANEL INC INC CALCIUM TOTAL CRITICAL 74767 TITA CLANCY 0 EMERGENCY NATALIE ILL/INJUR SERVICES O ED PATIENT ASSOCIATE INIT S 30-74 [place] [address] J[facility] LIPASE 0 [facility] INC INC 3D 19994 [place] NAM, RENDERING 0 MEDICAL ERIC P IMAGING W/INTERP& ASSOCIATE POSTPROC S DIFF WORK STATION CT PELVIS 13335 [place] NAM, W/O 0 MEDICAL ERIC P CONTRAST [place] [address] [facility] AMYLASE 0 [facility] INC INC COMPREHEN 87683 [facility] SIVE 0 [facility] METABOLIC INC INC PANEL BLOOD 75365 [facility] COUNT 0 [facility] COMPLETE INC INC AUTO&AUTO DIFRNTL WBC URNLS DIP 91683 [facility] 0 [facility] STICK/TAB INC INC LET REAGENT AUTO MICROSCOP Y GLUC BLD 19968 [facility] GLUC MNTR 0 [facility] DEV INC INC CLEARED FDA SPEC HOME USE URNLS DIP 03732 [facility] 0 [facility] STICK/TAB INC INC LET REAGENT AUTO MICROSCOP Y URINE 87016 [facility] 0 [facility] TEST INC INC VISUAL COLOR CMPRSN METHS CULTURE 53531 [facility] BACTERIAL 0 [facility] INC INC QUANTTATI VE COLONY COUNT URINE ALL Q0112 [facility] POTASSIUM [address] [place] [address] HYDROXIDE PREPARATI ONS IADNA 43229 [facility] CHLAMYDIA 0 [facility] TRACHOMAT IS AMPLIFIED PROBE TQ SMR PRIM 52866 JAVRIS [facility] SRC WET 0 [facility] NFCT AGT CYTP 09991 PATHOLOGY PATHOLOGY CERV/VAG 0 & & AUTO THIN CYTOLOGY CYTOLOGY LAYER LAB LAB PREP MNL SCREEN IADNA 36039 [facility] NEISSERIA 0 [facility] GONORRHOE AE AMPLIFIED PROBE TQ GLUC BLD 37757 [facility] GLUC MNTR 0 [facility] CLEARED FDA SPEC HOME USE CONTRACEP A4267 J[facility] TIVE [address] [place] [address] CENTER CONDOM MALE EACH WET Q0111 J[facility]VIS [facility] [address] CENTER CENTER VAGINAL CERV/SKIN SPECIMENS CYTP 82668 PATHOLOGY PATHOLOGY CERVICAL/ 0 & & VAGINAL CYTOLOGY CYTOLOGY REQ LAB LAB INTERP PHYSICIAN CYTP C/V 05464 PATHOLOGY PATHOLOGY AUTO THIN 9 & & LYR CYTOLOGY CYTOLOGY PREPJ SCR LAB LAB MNL RESCR PHYS ETONOGEST J7307 [facility], REL 9 [facility] J CNTRACPT CLINIC OF IMPL SYS INCL IMPL [place] & SPL PLLC INSERTION 61329 [facility], 9 [facility] J IMPLANTAB CLINIC OF LE CONTRACEP [place] TIVE PLLC CAPSULES NEURAXIAL 76518 [facility], LABOR 9 ANESTH CHRISTIAN A ANALG/ANE OF THE S PLND [place] VAGINAL DELIVERY CUL BACT 13521 COMBINED COMBINED XCPT 9 PHYSICIAN PHYSICIAN URINE S LAB S LAB BLOOD/STO OL AEROBIC ISOL US PREG 44898 [facility], UTERUS 9 [facility] J AFTER CLINIC OF TRIMEST [place] GESTATION PLLC THERAPEUT 30356 [facility] IC 9 [facility] PROPHYLAC INC INC TIC/DX INJECTION SUBQ/IM GONADOTRO 97629 [facility] PIN 9 [facility] CHORIONIC INC INC QUANTITAT PEEWEE ALPHA-FET 25941 [facility] OPROTEIN 9 [facility] [place] [address] J[facility] ESTRIOL 9 [facility] INC INC IADNA 10703 CHERRI GAUTAM 9 TRICIA MOREL CCUS PSC GROUP A QUANTIFIC ATION US PREG 16237 [facility], UTERUS 9 [facility] J REAL TIME CLINIC OF W/IMAGE DCMTN [place] TRANSVAG PLLC CYTP C/V 50691 PATHOLOGY PATHOLOGY AUTO THIN 9 & & LYR CYTOLOGY CYTOLOGY PREPJ SCR LAB LAB MNL RESCR PHYS MUTATION 31569 MOLECULAR MOLECULAR ID 9 ENZYMATIC PATHOLOGY PATHOLOGY LAB LAB LIG/PRIME NETWORK NETWORK R XTN 1 INC INC SGM EA MOLECULAR 22898 MOLECULAR MOLECULAR 9 DIAGNOSTI PATHOLOGY PATHOLOGY CS LAB LAB INTERPRET NETWORK NETWORK ATION & INC INC REPORT MOLECULAR 08832 MOLECULAR MOLECULAR DX AMP 9 TARGET PATHOLOGY PATHOLOGY MULTIPLEX LAB LAB 1ST 2 NETWORK NETWORK SEQ INC INC MOLECULAR 10516 MOLECULAR MOLECULAR DX AMP 9 TARGET PATHOLOGY PATHOLOGY MULTIPLEX LAB LAB EA ADDL NETWORK NETWORK SEQ INC INC MOLEC 78796 MOLECULAR MOLECULAR SEP&ID HI 9 RESOLU PATHOLOGY PATHOLOGY TQ EACH LAB LAB NUCLEIC NETWORK NETWORK ACID PREP INC INC IADNA 67815 PATHOLOGY PATHOLOGY NEISSERIA 9 & & CYTOLOGY CYTOLOGY GONORRHOE LAB LAB AE AMPLIFIED PROBE TQ MOLEC 80037 MOLECULAR MOLECULAR ISOL/XTRJ 9 HP PATHOLOGY PATHOLOGY NUCLEIC LAB LAB ACID EA NETWORK NETWORK TYPE INC INC IADNA 02318 PATHOLOGY PATHOLOGY CHLAMYDIA 9 & & CYTOLOGY CYTOLOGY TRACHOMAT LAB LAB IS AMPLIFIED PROBE TQ URINE 70848 DHS/CO JARVIS 9 HEALTH CO [facility] TEST [facility] [place] [facility] [place] [address] KAI BROWNING HEAD/BRAI 8 MEDICAL ERIC P N W/O IMAGING CONTRAST ASSOCIATE MATERIAL S RADEX 43821 [facility] SPINE 8 [facility] CERVICAL INC INC 6 OR MORE VIEWS 3D 41326 KAI BROWNING, RENDERING 8 MEDICAL ERIC P W/INTERP IMAGING & ASSOCIATE POSTPROCE S SS SUPERVISI ON Encounters Encounter Start End Date Code Location Performer Type Date HOSPITAL [facility] - 6 6 [facility] OUTPATIEN INC T OFFICE 56006 [facility] CAROLYN ROGEL 6 6 PHYSICIAN YAJAIRA T VISIT S GROUP KIAN SAMANTHA 15 MINUTES [facility] JARVIS - 6 6 [facility] OUTPATIEN INC T HOSPITAL JARVIS - 6 6 [facility] OUTPATIEN INC T EMERGENCY 28819 [facility] 6 6 [facility] DEPARTMEN INC T VISIT LIMITED/M INOR PROB EMERGENCY 83002 [facility] 6 6 PHYSICIAN SERENITY S, PLLC T VISIT MODERATE SEVERITY OFFICE 04548 [facility] VANESSA ROGEL 6 6 PHYSICIAN TOMMY T VISIT S GROUP 10 MINUTES [facility] JARVIS - 6 6 [facility] OUTPATIEN INC T OFFICE 97472 [facility] ALLRAN JR OUTPATIEN 5 5 PHYSICIAN TOMMY T VISIT S GROUP 15 MINUTES EMERGENCY 97406 [facility] 5 5 PHYSICIAN DEPARTMEN S, PLLC T VISIT MODERATE SEVERITY HOSPITAL JARVIS - 5 5 [facility] OUTPATIEN INC T OFFICE 63108 [facility] ALLRAN JR OUTPATIEN 5 5 PHYSICIAN TOMMY T VISIT S GROUP 10 MINUTES OFFICE 82334 [facility] ALLRAN JR OUTPATIEN 5 5 PHYSICIAN TOMMY T VISIT S GROUP 15 MINUTES HOSPITAL JARVIS - 5 5 [facility] OUTPATIEN INC T EMERGENCY 25042 J[facility]VIS 5 5 [facility] DEPARTMEN INC T VISIT LOW/MODER SEVERITY EMERGENCY 47832 [facility] DEPT 5 5 PHYSICIAN VISIT S, PLLC HIGH SEVERITY& THREAT FUNCJ EMERGENCY 17036 JUAN HOOVER 5 5 PHYSICIAN Shaun EDUARDO DEPARTMEN S, PLLC T VISIT MODERATE SEVERITY EMERGENCY 99368 JUAN GREGG 5 5 PHYSICIAN FOR DEPARTMEN S, PLLC T VISIT HIGH/URGE NT SEVERITY HOSPITAL JARVIS - 5 5 [facility]IEN INC T [facility]OSP[facility] - 5 5 [facility]EN INC T [facility] - 5 5 [facility] OUTPATIEN INC T EMERGENCY 90352 JUAN CARBALLO 5 5 PHYSICIAN RENEE DEPARTMEN S, PLLC T VISIT MODERATE SEVERITY OFFICE 34770 [facility] MARCIAL OUTPATIEN 5 5 PHYSICIAN MOUNIKA T VISIT S GROUP 15 MINUTES EMERGENCY 65136 JUAN JACKMAN 5 5 PHYSICIAN DEPARTMEN S, PLLC T VISIT HIGH/URGE NT SEVERITY HOSPITAL JARVIS - 5 5 [facility] OUTPATIEN [facility] T OFFICE 82969 [facility] MADINA OUTPATIEN 5 5 PHYSICIAN CAM T VISIT S GROUP 10 MINUTES HOSPITAL JARVIS - 5 5 [facility] INPATIENT INC OFFICE 06202 [facility] EMANUEL OUTPATIEN 5 5 PHYSICIAN BROOKS T VISIT S GROUP 15 MINUTES OFFICE 82424 A C KILPELA OUTPATIEN 5 5 TRICIA ZHU JEA T VISIT PSC 15 MINUTES OFFICE 89605 EMANUEL CASTELLANOS OUTPATIEN 3 3 [facility]OO[facility] BROOKS T VISIT 15 MINUTES OFFICE 90008 EMANUEL PRINGLEE OUTPATIEN 3 3 [facility] BROOKS T VISIT 15 MINUTES OFFICE 08075 EMANUEL PRINGLEE OUTPATIEN 3 3 [facility] BROOKS T VISIT 15 MINUTES OFFICE 34300 EMANUEL CASTELLANOS OUTPATIEN 3 3 [facility] BROOKS T VISIT 15 MINUTES OFFICE 31575 EMANUEL CASTELLANOS OUTPATIEN 3 3 [facility] BROOKS T VISIT 15 MINUTES OFFICE 87797 EMANUEL CASTELLANOS OUTPATIEN 3 3 BROOKS BROOKS T VISIT 15 MINUTES OFFICE 25773 A C KILPELA OUTPATIEN 3 3 TRICIA ZHU JEA T VISIT PSC 15 MINUTES OFFICE 44253 EMANUEL CASTELLANOS OUTPATIEN 3 3 BROOKS BROOKS T VISIT 5 MINUTES OFFICE 11169 A C KILPELA OUTPATIEN 3 3 TRICIA ZHU JEA T VISIT PSC 15 MINUTES OFFICE 78889 A C KILPELA OUTPATIEN 3 3 TRICIA ZHU JEA T VISIT PSC 15 MINUTES OFFICE 90545 EMANUEL CASTELLANOS OUTPATIEN 3 3 RBOOKS BROOKS T VISIT 15 MINUTES EMERGENCY 09865 JARVIS 2 2 [facility]IS[facility] HIGH/URGE NT SEVERITY EMERGENCY 14295 MARA TERRY DEPT 2 2 CARLY CARLY VISIT [facility]IGH SEVERITY& THREAT [facility] JARVIS - 2 2 [facility] T EMERGENCY 21275 JYOTSNA GOYAL 2 2 [facility] T VISIT HIGH/URGE NT SEVERITY HOSPITAL JARVIS - 2 2 [facility] 2 [facility] T HOSPITAL JARVIS [facility] 2 2 [facility] 05529 JARVIS 2 2 [facility] T VISIT MODERATE SEVERITY EMERGENCY 65780 CIARRA LAFLEUR 2 2 III AVTAR III [facility] T VISIT HIGH/URGE NT SEVERITY HOSPITAL JARVIS - 2 2 [facility] UN[facility] - 2 2 [facility] EMERGENCY 43474 ANASTACIA GUNN 2 2 [facility] T VISIT FOUNDATIO HIGH/URGE NT SEVERITY PERIODIC 40661 EMANUEL CASTELLANOS PREVENTIV 2 2 [facility] E MED EST PATIENT 18-39 YRS EMERGENCY 63505 ALF FERREIRA 2 2 EMERGENCY [facility] T VISIT HIGH/URGE NT SEVERITY EMERGENCY 07440 JARVIS 2 2 [facility] T VISIT MODERATE SEVERITY HOSPITAL JARVIS - 2 2 [facility] T EMERGENCY 73137 JARVIS 2 2 [facility] T VISIT LOW/MODER SEVERITY EMERGENCY 45228 CIARRA LAFLEUR 2 2 III AVTAR III [facility] T VISIT MODERATE SEVERITY HOSPITAL JARVIS - 2 2 [facility] OFFICE 73979 LANG GARCIA LANG RADHA OUTPATIEN 2 2 T VISIT 15 MINUTES OFFICE 43036 EMANUEL CASTELLANOS OUTPATIEN 1 1 [facility] T VISIT 10 MINUTES OFFICE 14940 EMANUEL CASTELLANOS OUTPATIEN 1 1 [facility] T VISIT 15 MINUTES EMERGENCY 20889 ALF TERRY 1 1 EMERGENCY [facility] DEPARTMEN SERVICES T VISIT HIGH/URGE NT SEVERITY OFFICE 10287 A Domonique Byrd OUTPATIEN 1 1 TRICIA ZHU T VISIT PSC 15 MINUTES [facility] JARVIS - 1 1 [facility] OUT[facility] INC T OFFICE 39028 A Domonique Byrd OUTPATIEN 1 1 TRICIA ZHU T VISIT PSC 15 MINUTES PERIODIC 70800 JARVIS CONLEY PREVENTIV 1 1 [facility] CENTER PATIENT 18-39 YRS EMERGENCY 34029 [facility] T VISIT HIGH/URGE NT SEVERITY HOSPITAL JARVIS - 1 1 [facility] OUTPATIEN INC T EMERGENCY 75606 ALF LAFLEUR DEPT 1 1 EMERGENCY III AVTAR VISIT SERVICES HIGH SEVERITY& THREAT FUNCJ OFFICE 86418 [facility] OUTPATIEN 1 1 [facility] T VISIT 5 [facility] JARVIS - 0 0 [facility] T EMERGENCY 28332 ALF LAFLEUR 0 0 [facility] III [facility] HIGH/URGE NT SEVERITY EMERGENCY 46256 [facility]OW/MODER SEVERITY PERIODIC 81294 [facility] PREVENTIV 0 0 [facility] E MED EST CLINIC OF PATIENT TAMRA 18-39 YRS OFFICE 18382 A Domonique Byrd OUTPATIEN 0 0 TRICIA ZHU T VISIT PSC 15 MINUTES OFFICE 00289 A Domonique Byrd OUTPATIEN 0 0 TRICIA ZHU T VISIT PSC 15 MINUTES OFFICE 45799 Rochelle Byrd OUTPATIEN 0 0 TRICIA ZHU T VISIT PSC 15 MINUTES EMERGENCY 24982 [facility]VIS 0 0 [facility] T VISIT LOW/MODER SEVERITY EMERGENCY 35094 [facility] 0 0 EMERGENCY DEPARTMEN SERVICES T VISIT MODERATE SEVERITY [facility] - [facility] 0 [facility] T OFFICE 10645 [facility] 0 0 [facility] T VISIT CLINIC OF 15 [place] MINUTES OFFICE 12437 [facility], [facility] 0 0 [facility] J T VISIT CLINIC OF 15 MINUTES [facility] OFFICE 15568 Rochelle CLARKE, Rochelle OUTPATIEN 0 0 TRICIA Youssef T VISIT PSC 15 MINUTES EMERGENCY 08639 [facility] 0 0 [facility] DEPARTMEN INC T VISIT LOW/MODER SEVERITY [facility]OSP[facility] - 0 0 [facility] OUTPATIEN INC T EMERGENCY 48463 [facility] L[facility] 0 0 EMERGENCY III, DEPARTMEN SERVICES MARY CARMEN T VISIT HIGH/URGE ASSOCIATE NT S SEVERITY OFFICE 33550 Rochelle SPENCER OUTPATIEN 0 0 TRICIA Youssef T VISIT PSC 15 MINUTES OFFICE 36949 [facility] ALLRAN CONSULTAT 0 0 JR TINAJERO ION CHARLES F CHARLES F NEW/ESTAB PATIENT 80 MIN EMERGENCY 03393 [facility] DEPT 0 0 [facility] VISIT INC HIGH SEVERITY& THREAT FUN [facility] - 0 0 [facility] OUTPATIEN INC T EMERGENCY 59982 [facility] [place], 0 0 EMERGENCY NATALIE DEPARTMEN SERVICES O T VISIT HIGH/URGE ASSOCIATE NT S SEVERITY EMERGENCY 49000 [facility] 0 0 [facility] DEPARTMEN INC T VISIT LOW/MODER SEVERITY [facility]OSPITAL [facility] - 0 0 [facility] OUTPATIEN INC T PERIODIC 70876 [facility] CONLEY PREVENTIV 0 0 [facility] PATIENT 18-39 YRS OFFICE 39536 [facility], [facility] 9 9 [facility] J T VISIT CLINIC OF 25 MINUTES [facility] OFFICE 43145 Rochelle SPENCERPATIGRETA 9 9 TRICIA Youssef T VISIT PSC 15 MINUTES [facility]OSPITAL [facility] - 9 9 [facility] OUTPATIEN INC T EMERGENCY 93495 [facility] MEDEL 9 9 EMERGENCY [facility] T VISIT MODERATE ASSOCIATE SEVERITY S EMERGENCY 35804 J[facility]VIS 9 9 [facility] DEPARTMEN INC T VISIT LIMITED/M INOR [facility] JARVIS - 9 9 [facility] OUTPATIEN INC T OFFICE 01152 Rochelle SPENCERPATIGRETA 9 9 TRICIA Youssef T VISIT PSC 15 MINUTES OFFICE 63214 [facility], [facility] 9 9 [facility] J T VISIT CLINIC OF 15 MINUTES [facility] JARVIS - 9 9 [facility] OUTPATIEN INC T OFFICE 32057 [facility]PATIEN 9 9 [facility] J T VISIT CLINIC OF 15 MINUTES [facility] OFFICE 69061 [facility] OUTPATIEN 9 9 [facility] J T VISIT CLINIC OF 15 MINUTES [facility] JARVIS - 9 9 [facility] OUTPATIEN INC T EMERGENCY 45150 [facility] 9 9 [facility] DEPARTMEN INC T VISIT LIMITED/M INOR PROB OFFICE 08982 PEBBLES GAUTAM 9 9 TRICIA MOREL T VISIT PSC 15 MINUTES OFFICE 58887 [facility]/CO JARVIS ROGEL 9 9 HEALTH CO HEALTH T VISIT [facility] 25 BANK ACCT MINUTES OFFICE 57827 NUVIA PEDERSEN OUTPATIEN 8 8 DON R DON R T NEW 20 MINUTES OFFICE 73511 PEBBLES GAUTAM 8 8 TRICIA MOREL T VISIT [facility] 15 MINUTES OFFICE 81797 Rochelle SPENCER 8 8 TRICIA Corona VISIT [facility] 15 MINUTES HOSPITAL JARVIS - 8 8 [facility] OUTPATIEN INC T EMERGENCY 11990 [facility] JAQUEZ, 8 8 [facility] T VISIT PROF SERV MODERATE SEVERITY EMERGENCY 77220 [facility] 8 8 [facility] INC T VISIT MODERATE SEVERITY
--- OUTSIDE RECORDS SUMMARY | 2017-02-05 14:55 | External Medical Summary Rpt ---
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 3 VIEWS RADEX HIP 08840 MONTGOMER MONTGOMER 2 Y JUS Y JUS UNILATERA L COMPLETE MINIMUM 2 VIEWS RADEX 12874 MONTGOMER MONTGOMER FOREARM 2 [address] [place] [address] [place] HEAD/BRAI 2 MEDICAL FLA N W/[place] [address] [place] THORACIC 2 MEDICAL FLA SPINE W/O SERV CONTRAST FOUNDATIO MATERIAL N REMOVAL 87250 EMANUEL CASTELLANOS NON-BIODE 2 [facility] GRADABLE DRUG DELIVERY IMPLANT RADEX 58489 [facility] ANKLE 2 [facility] COMPLETE INC INC MINIMUM 3 VIEWS RADEX 18079 [facility] FOOT 2 [facility] COMPLETE INC INC MINIMUM 3 VIEWS THERAPEUT 66803 [facility] IC 2 [facility] PROPHYLAC INC INC TIC/DX INJECTION SUBQ/IM IAADI 93065 [facility] INFFLUENZ 2 [facility] A A VIRUS INC INC IAADI 32009 [facility] INFLUENZA 2 [facility] [place] [address] [facility] STREPTOCO 2 [facility] [place] [address] EMANUEL CASTELLANOS TRANSVAGI 2 [facility] NAL URINE 73540 EMANUEL CASTELLANOS 1 [facility] TEST VISUAL COLOR CMPRSN METHS INSERTION 68927 EMANUEL CASTELLANOS 1 [facility] IMPLANTAB LE CONTRACEP TIVE CAPSULES ETONOGEST J7307 EMANUEL CASTELLANOS REL 1 [facility] CNTRACPT IMPL SYS INCL IMPL & SPL CUL BACT 85196 COMBINED COMBINED XCPT 1 PHYSICIAN PHYSICIAN URINE S LA S LA BLOOD/STO OL AEROBIC ISOL ANTIBODY 84624 COMBINED COMBINED CHLAMYDIA 1 PHYSICIAN PHYSICIAN S LA S LA ANTIBODY 60853 COMBINED COMBINED CHLAMYDIA 1 PHYSICIAN PHYSICIAN S LA S LA CUL BACT 47580 COMBINED COMBINED XCPT 1 PHYSICIAN PHYSICIAN URINE S LA S LA BLOOD/STO OL AEROBIC ISOL URINE 85008 [facility] 1 [facility] TEST INC INC VISUAL COLOR CMPRSN METHS CYTP 95991 PATHOLOGY PATHOLOGY CERV/VAG 1 & & AUTO THIN CYTOLOGY CYTOLOGY LAYER LAB LAB PREP MNL SCREEN IADNA 75237 [facility] NEISSERIA 1 [facility] GONORRHOE AE AMPLIFIED PROBE TQ URINE 24351 [facility] 1 [facility] VISUAL COLOR CMPRSN METHS IADNA 11119 [facility] CHLAMYDIA 1 [facility] TRACHOMAT IS AMPLIFIED PROBE TQ CONTRACEP A4267 [facility] TIVE 1 [facility] SUPPLY [facility] CONDOM MALE EACH DME A9900 [facility] SUP/ACCES 1 [facility] HE[facility] S/[facility] CENTER [place] [address] [facility] MAGNESIUM 1 [facility] INC INC ECG 09747 J[facility] ROUTINE 1 [facility] ECG INC INC W/LEAST 12 LDS TRCG ONLY W/O I&R ECG 52568 JARVIS ARAIZA ROUTINE 1 [facility] W/LEAST P 12 LDS I&R ONLY GROUND A0425 [facility] MILEAGE 1 AMBULANCE AMBULANCE PER SERVICE SERVICE STATUTE MILE ALS A0398 [facility] FERRELL ROUTINE 1 AMBULANCE AMBULANCE [place] [address] [facility] INFUSION 1 [facility] THERAPY/P INC INC ROPHYLAXI S /DX 1ST TO 1 HR BLOOD 08710 JARVIS [facility]VIS COUNT 1 [facility] COMPLETE INC INC AUTO&AUTO DIFRNTL WBC COMPREHEN 10848 [facility] SIVE 1 [facility] [place] [address] [facility] INFUSION 1 [facility] THERAPY INC INC PROPHYLAX IS/DX EA HOUR AMB A0427 [facility] SERVICE 1 AMBULANCE AMBULANCE ALS SERVICE SERVICE EMERGENCY TRANSPORT LEVEL 1 URINE 07131 [facility] CASTELL[facility] 1 [facility] OF VISUAL [place] COLOR CMPRSN METHS INCISION 95488 ALF LAFLEUR & 0 EMERGENCY III AVTAR DRAINAGE SERVICES ABSCESS COMPLICAT ED/MULTIP LE OTH 8604 [facility] INCISION 0 [facility] W/DRAINAG INC INC E SKIN&SUBC UTANEOUS TISSUE CYTP C/V 82172 PATHOLOGY PATHOLOGY AUTO THIN 0 & & LYR CYTOLOGY CYTOLOGY PREPJ SCR LAB LAB MNL RESCR PHYS REMOVAL 67194 [facility] NON-BIODE 0 [facility] DRUG [place] DELIVERY IMPLANT IADNA 61296 A C TRICIA A STREPTOCO 0 TRICIA ZHU CCUS PSC GROUP A QUANTIFIC ATION INCISION 27930 A C TRICIA A & 0 TRICIA ZHU DRAINAGE PSC ABSCESS SIMPLE/SI NGLE URINE 25931 [facility]OM[facility] CASTELL[facility]OS 0 [facility] OF VISUAL [place] COLOR CMPRSN METHS ETONOGEST J7307 [facility]OMEN'[facility] CASTELLANOS REL 0 [facility] CNTRACPT CLINIC OF IMPL SYS [place] INCL IMPL & SPL INSERTION 98987 [facility] CASTELL[facility]OS 0 [facility] IMPLANTAB CLINIC OF LE ATMRA CONTRACEP TIVE CAPSULES CUL BACT 79605 COMBINED COMBINED XCPT 0 PHYSICIAN PHYSICIAN URINE S LA S LA BLOOD/STO OL AEROBIC ISOL ANTIBODY 03503 COMBINED COMBINED CHLAMYDIA 0 PHYSICIAN PHYSICIAN S LA S LA CUL BACT 43206 COMBINED COMBINED XCPT 0 PHYSICIAN PHYSICIAN URINE S LAB S LAB BLOOD/STO OL AEROBIC ISOL ANTIBODY 14422 COMBINED COMBINED CHLAMYDIA 0 PHYSICIAN PHYSICIAN S LAB S LAB SMR PRIM 93299 [facility]EN[facility] CASTELLANOS, SRC WET 0 [facility] NFCT AGT [place] PLLC REMOVAL 33125 [facility] CASTELL[facility], NON-BIODE 0 [facility] DELIVERY [place] IMPLANT PLLC CUL BACT 43718 COMBINED COMBINED XCPT 0 PHYSICIAN PHYSICIAN URINE S LAB S LAB BLOOD/STO OL AEROBIC ISOL ANTIBODY 14285 COMBINED COMBINED CHLAMYDIA 0 PHYSICIAN PHYSICIAN S LAB S LAB CUL BACT 66353 [facility] XCPT 0 [facility] URINE INC INC BLOOD/STO OL AEROBIC ISOL CUL BACT 23363 [facility] AEROBIC 0 [facility] ADDL INC INC METHS DEFINITIV E EA ISOL SUSCEPTIB 58041 [facility] LTY STDY 0 [facility] ANTIMICRB INC INC IAL MICRO/AGA R DILUTJ INCISION 38190 ALF LAFLEUR & 0 EMERGENCY III, DRAINAGE SERVICES MARY CARMEN GONZALEZ COMPLICAT ASSOCIATE ED/MULTIP S LE OTH 8604 [facility] INCISION 0 [facility] W/DRAINAG INC INC E SKIN&SUBC UTANEOUS TISSUE LAPAROSCO 4701 [facility] PIC 0 [facility] [place] [address] [facility] INFUSION 0 [facility] THERAPY/P INC INC ROPHYLAXI S /DX 1ST TO 1 HR [facility] G0378 [facility] OBSERVATI 0 [facility] ON INC INC SERVICE PER HOUR LEVEL III 94400 PATHOLOGY PATHOLOGY SURG 0 & & PATHOLOGY CYTOLOGY CYTOLOGY LAB LAB GROSS&CARLY ROSCOPIC EXAM ANESTHESI 58293 [facility] JEAN, A 0 ANESTH MARY CARMEN Parker INTRAPERI OF THE TONEAL [place] W/[place] [address] [facility] INFUSION 0 [facility] THERAPY INC INC PROPHYLAX IS/DX EA HOUR LAPAROSCO 01927 ALLRAN ALLRAN PIC 0 JR, JR, [place] [address] [place] NAM, ABDOMEN 0 MEDICAL ERIC P W/O IMAGING CONTRAST ASSOCIATE MATERIAL S URINE 04791 [facility]VIS [facility] 0 [facility] TEST INC INC VISUAL COLOR CMPRSN METHS BASIC 38774 [facility] METABOLIC 0 [facility] PANEL INC INC CALCIUM TOTAL CRITICAL 60881 TITA CLANCY 0 EMERGENCY NATALIE ILL/INJUR SERVICES O ED PATIENT ASSOCIATE INIT S 30-74 [place] [address] [facility]VIS [facility] LIPASE 0 [facility] INC INC 3D 86016 [place]AM, RENDERING 0 MEDICAL ERIC P IMAGING W/INTERP& ASSOCIATE POSTPROC S DIFF WORK STATION CT PELVIS 29736 [place] NAM, W/O 0 MEDICAL ERIC P CONTRAST [place] [address] [facility] AMYLASE 0 [facility] INC INC COMPREHEN 00036 [facility] SIVE 0 [facility] METABOLIC INC INC PANEL BLOOD 91435 [facility] COUNT 0 [facility] COMPLETE INC INC AUTO&AUTO DIFRNTL WBC URNLS DIP 76016 [facility] 0 [facility] STICK/TAB INC INC LET REAGENT AUTO MICROSCOP Y GLUC BLD 69853 [facility] GLUC MNTR 0 [facility] DEV INC INC CLEARED FDA SPEC HOME USE URNLS DIP 72756 [facility] 0 [facility] STICK/TAB INC INC LET REAGENT AUTO MICROSCOP Y URINE 99660 [facility] 0 [facility] TEST INC INC VISUAL COLOR CMPRSN METHS CULTURE 40448 [facility] BACTERIAL 0 [facility] INC INC QUANTTATI VE COLONY COUNT URINE ALL Q0112 J[facility] POTASSIUM [address] [place] [address] HYDROXIDE PREPARATI ONS IADNA 18156 [facility] CHLAMYDIA 0 [facility] TRACHOMAT IS AMPLIFIED PROBE TQ SMR PRIM 86635 [facility] SRC WET 0 [facility] NFCT AGT CYTP 22224 PATHOLOGY PATHOLOGY CERV/VAG 0 & & AUTO THIN CYTOLOGY CYTOLOGY LAYER LAB LAB PREP MNL SCREEN IADNA 12082 [facility] NEISSERIA 0 [facility] GONORRHOE AE AMPLIFIED PROBE TQ GLUC BLD 65557 J[facility] GLUC MNTR 0 [facility] DEV [facility] CLEARED FDA SPEC HOME USE CONTRACEP A4267 J[facility]VIS [facility] TIVE [address] [place] [address] CENTER CONDOM MALE EACH WET Q0111 J[facility] [address] CENTER CENTER VAGINAL CERV/SKIN SPECIMENS CYTP 08339 PATHOLOGY PATHOLOGY CERVICAL/ 0 & & VAGINAL CYTOLOGY CYTOLOGY REQ LAB LAB INTERP PHYSICIAN CYTP C/V 13694 PATHOLOGY PATHOLOGY AUTO THIN 9 & & LYR CYTOLOGY CYTOLOGY PREPJ SCR LAB LAB MNL RESCR PHYS ETONOGEST J7307 [facility], REL 9 [facility] CNTRACPT CLINIC OF IMPL SYS INCL IMPL [place] & SPL PLLC INSERTION 87617 [facility], 9 [facility] J IMPLANTAB CLINIC OF LE CONTRACEP [place] TIVE PLLC CAPSULES NEURAXIAL 52341 COMMUNITY REAGAN, LABOR 9 ANESTH CHRISTIAN A ANALG/ANE OF THE S PLND [place] VAGINAL DELIVERY CUL BACT 10248 COMBINED COMBINED XCPT 9 PHYSICIAN PHYSICIAN URINE S LAB S LAB BLOOD/STO OL AEROBIC ISOL US PREG 57785 [facility], UTERUS 9 [facility] J AFTER CLINIC OF TRIMEST [place] GESTATION PLLC THERAPEUT 27131 [facility] IC 9 [facility] PROPHYLAC INC INC TIC/DX INJECTION SUBQ/IM GONADOTRO 65293 [facility] PIN 9 [facility] CHORIONIC INC INC QUANTITAT PEEWEE ALPHA-FET 31807 [facility] OPROTEIN 9 [facility] [place] [address] J[facility] ESTRIOL 9 [facility] INC INC IADNA 27774 CHERRI GAUTAM 9 TRICIA MOREL CCUS PSC GROUP A QUANTIFIC ATION US PREG 22003 [facility], UTERUS 9 [facility] J REAL TIME CLINIC OF W/IMAGE DCMTN [place] TRANSVAG PLLC CYTP C/V 08089 PATHOLOGY PATHOLOGY AUTO THIN 9 & & LYR CYTOLOGY CYTOLOGY PREPJ SCR LAB LAB MNL RESCR PHYS MUTATION 79622 MOLECULAR MOLECULAR ID 9 ENZYMATIC PATHOLOGY PATHOLOGY LAB LAB LIG/PRIME NETWORK NETWORK R XTN 1 INC INC SGM EA MOLECULAR 15435 MOLECULAR MOLECULAR 9 DIAGNOSTI PATHOLOGY PATHOLOGY CS LAB LAB INTERPRET NETWORK NETWORK ATION & INC INC REPORT MOLECULAR 56220 MOLECULAR MOLECULAR DX AMP 9 TARGET PATHOLOGY PATHOLOGY MULTIPLEX LAB LAB 1ST 2 NETWORK NETWORK SEQ INC INC MOLECULAR 66658 MOLECULAR MOLECULAR DX AMP 9 TARGET PATHOLOGY PATHOLOGY MULTIPLEX LAB LAB EA ADDL NETWORK NETWORK SEQ INC INC MOLEC 01676 MOLECULAR MOLECULAR SEP&ID HI 9 RESOLU PATHOLOGY PATHOLOGY TQ EACH LAB LAB NUCLEIC NETWORK NETWORK ACID PREP INC INC IADNA 27376 PATHOLOGY PATHOLOGY NEISSERIA 9 & & CYTOLOGY CYTOLOGY GONORRHOE LAB LAB AE AMPLIFIED PROBE TQ MOLEC 84173 MOLECULAR MOLECULAR ISOL/XTRJ 9 HP PATHOLOGY PATHOLOGY NUCLEIC LAB LAB ACID EA NETWORK NETWORK TYPE INC INC IADNA 74793 PATHOLOGY PATHOLOGY CHLAMYDIA 9 & & CYTOLOGY CYTOLOGY TRACHOMAT LAB LAB IS AMPLIFIED PROBE TQ URINE 51391 DHS/CO JARVIS 9 HEALTH CO HEALTH TEST [facility] [place] [facility] [place] [address] KAI BROWNING HEAD/BRAI 8 MEDICAL ERIC P N W/O IMAGING CONTRAST ASSOCIATE MATERIAL S RADEX 46883 [facility] SPINE 8 [facility] CERVICAL INC INC 6 OR MORE VIEWS 3D 54019 KAI BROWNING, RENDERING 8 MEDICAL ERIC P W/INTERP IMAGING & ASSOCIATE POSTPROCE S SS SUPERVISI ON Encounters Encounter Start End Date Code Location Performer Type Date HOSPITAL [facility] - 6 6 [facility] OUTPATIEN INC T OFFICE 70799 [facility] CAROLYN ROGEL 6 6 PHYSICIAN YAJAIRA T VISIT S GROUP KIAN SAMANTHA 15 MINUTES [facility] J[facility]VIS - 6 6 [facility] OUTPATIEN INC T HOSPITAL J[facility]VIS - 6 6 [facility] OUTPATIEN INC T EMERGENCY 78444 [facility]VIS 6 6 [facility] DEPARTMEN INC T VISIT LIMITED/M INOR PROB EMERGENCY 76245 [facility]AN MUR[facility] 6 6 PHYSICIAN SERENITY S, PLLC T VISIT MODERATE SEVERITY OFFICE 43251 [facility] VANESSA ROGEL 6 6 PHYSICIAN TOMMY T VISIT S GROUP 10 MINUTES [facility] JARVIS - 6 6 [facility] OUTPATIEN INC T OFFICE 80408 [facility] ALLRAN JR OUTPATIEN 5 5 PHYSICIAN TOMMY T VISIT S GROUP 15 MINUTES EMERGENCY 39995 JUAN MURRAY [facility] 5 5 PHYSICIAN DEPARTMEN S, PLLC T VISIT MODERATE SEVERITY HOSPITAL [facility]VIS - 5 5 [facility] OUTPATIEN INC T OFFICE 47328 [facility] ALLRAN JR OUTPATIEN 5 5 PHYSICIAN TOMMY T VISIT S GROUP 10 MINUTES OFFICE 04737 [facility] ALLRAN JR OUTPATIEN 5 5 PHYSICIAN TOMMY T VISIT S GROUP 15 MINUTES HOSPITAL JARVIS - 5 5 [facility] OUTPATIEN INC T EMERGENCY 55401 J[facility]VIS 5 5 [facility] DEPARTMEN INC T VISIT LOW/MODER SEVERITY EMERGENCY 60789 JUAN MURRAY [facility] 5 5 PHYSICIAN VISIT S, PLLC HIGH SEVERITY& THREAT FUNCJ EMERGENCY 26450 JUAN HOOVER 5 5 PHYSICIAN Shaun EDUARDO DEPARTMEN S, PLLC T VISIT MODERATE SEVERITY EMERGENCY 67595 JUAN GREGG 5 5 PHYSICIAN FOR DEPARTMEN S, PLLC T VISIT HIGH/URGE NT SEVERITY HOSPITAL JARVIS - 5 5 [facility] OUTPATIEN INC T HOSPITAL JARVIS - 5 5 [facility] OUTPATIEN INC T HOSPITAL JARVIS - 5 5 [facility] OUTPATIEN INC T EMERGENCY 35864 JUAN CARBALLO 5 5 PHYSICIAN RENEE DEPARTMEN S, PLLC T VISIT MODERATE SEVERITY OFFICE 56111 [facility] MARCIAL OUTPATIEN 5 5 PHYSICIAN MOUNIKA T VISIT S GROUP 15 MINUTES EMERGENCY 89906 JUAN JACKMAN 5 5 PHYSICIAN DEPARTMEN S, PLLC T VISIT HIGH/URGE NT SEVERITY HOSPITAL JARVIS - 5 5 [facility] OUTPATIEN [facility] T OFFICE 01920 [facility] MADINA OUTPATIEN 5 5 PHYSICIAN CAM T VISIT S GROUP 10 MINUTES HOSPITAL JARVIS - 5 5 [facility] INPATIENT INC OFFICE 69646 [facility] EMANUEL OUTPATIEN 5 5 PHYSICIAN BROOKS T VISIT S GROUP 15 MINUTES OFFICE 07281 A C KILPELA OUTPATIEN 5 5 TRICIA ZHU JEA T VISIT PSC 15 MINUTES OFFICE 03626 EMANUEL CASTELLANOS OUTPATIEN 3 3 [facility] T VISIT 15 MINUTES OFFICE 43568 EMANUEL PRINGLEE OUTPATIEN 3 3 [facility] T VISIT 15 MINUTES OFFICE 70928 EMANUEL PRINGLEE OUTPATIEN 3 3 [facility] T VISIT 15 MINUTES OFFICE 67502 EMANUEL CASTELLANOS OUTPATIEN 3 3 [facility] T VISIT 15 MINUTES OFFICE 76771 EMANUEL CASTELLANOS OUTPATIEN 3 3 [facility] T VISIT 15 MINUTES OFFICE 10237 EMANUEL CASTELLANOS OUTPATIEN 3 3 [facility] T VISIT 15 MINUTES OFFICE 73617 A C KILPELA OUTPATIEN 3 3 TRICIA ZHU JEA T VISIT PSC 15 MINUTES OFFICE 13586 EMANUEL CASTELLANOS OUTPATIEN 3 3 [facility] T VISIT 5 MINUTES OFFICE 76828 A C KILPELA OUTPATIEN 3 3 TRICIA ZHU JEA T VISIT PSC 15 MINUTES OFFICE 89821 A C KILPELA OUTPATIEN 3 3 TRICIA ZHU JEA T VISIT PSC 15 MINUTES OFFICE 47993 EMANUEL CASTELLANOS OUTPATIEN 3 3 [facility] T VISIT 15 MINUTES EMERGENCY 98809 JARVIS 2 2 [facility] HIGH/URGE NT SEVERITY EMERGENCY 30464 MARA TERRY DEPT 2 2 CARLY CARLY VISIT HIGH SEVERITY& THREAT [facility] JARVIS - 2 2 [facility] T EMERGENCY 40219 JYOTSNA GOYAL 2 2 [facility] T VISIT HIGH/URGE NT SEVERITY HOSPITAL JARVIS - 2 2 [facility] 2 2 [facility] HOSP[facility] JARVIS - 2 2 [facility] T EMERGENCY 36955 JARVIS 2 2 [facility] T VISIT MODERATE SEVERITY EMERGENCY 43927 CIARRA LAFLEUR 2 2 III AVTAR III [facility] T VISIT HIGH/URGE NT SEVERITY HOSPITAL JARVIS - 2 2 [facility] UNIVERSIT - 2 2 [facility] EMERGENCY 46312 ANASTACIA GUNN 2 2 [facility] T VISIT FOUNDATIO HIGH/URGE NT SEVERITY PERIODIC 20962 EMANUEL CASTELLANOS PREVENTIV 2 2 [facility] E MED EST PATIENT 18-39 YRS EMERGENCY 14559 ALF FERREIRA 2 2 EMERGENCY [facility] T VISIT HIGH/URGE NT SEVERITY EMERGENCY 97782 JARVIS 2 2 [facility] T VISIT MODERATE SEVERITY HOSPITAL JARVIS - 2 2 [facility] T EMERGENCY 31815 JARVIS 2 2 [facility] T VISIT LOW/MODER SEVERITY EMERGENCY 98071 CIARRA LAFLEUR 2 2 III AVTAR III [facility] T VISIT MODERATE SEVERITY HOSPITAL JARVIS - 2 2 [facility] OFFICE 05343 LANG GARCIA LANG RADHA OUTPATIEN 2 2 T VISIT 15 MINUTES OFFICE 11263 EMANUEL CASTELLANOS OUTPATIEN 1 1 [facility] T VISIT 10 MINUTES OFFICE 48941 EMANUEL CASTELLANOS OUTPATIEN 1 1 [facility] T VISIT 15 MINUTES EMERGENCY 30700 ALF TERRY 1 1 EMERGENCY [facility] DEPARTMEN SERVICES T VISIT HIGH/URGE NT SEVERITY OFFICE 47613 A Domonique Byrd OUTPATIEN 1 1 TRICIA ZHU T VISIT PSC 15 MINUTES [facility] JARVIS - 1 1 [facility] OUTPATIEN INC T OFFICE 54138 A Domonique Byrd OUTPATIEN 1 1 TRICIA ZHU T VISIT PSC 15 MINUTES PERIODIC 64843 JARVIS [place] PREVENTIV 1 1 [facility] HEALTH E MED EST CENTER CENTER PATIENT 18-39 YRS EMERGENCY 95778 [facility] 1 [facility] T VISIT HIGH/URGE NT SEVERITY HOSPITAL JARVIS - 1 1 [facility] OUTPATIEN INC T EMERGENCY 85454 ALF LAFLEUR DEPT 1 1 EMERGENCY III AVTAR VISIT SERVICES HIGH SEVERITY& THREAT FUNCJ OFFICE 05209 [facility] EMAN[facility]EL OUTPATIEN 1 1 [facility] T VISIT 5 CLINIC OF MINUTES [facility] JARVIS - 0 0 [facility] T EMERGENCY 89186 ALF LAFLEUR 0 0 [facility] HIGH/URGE NT SEVERITY EMERGENCY 91236 [facility] LOW/MODER SEVERITY PERIODIC 66573 [facility] PREVENTIV 0 0 [facility] E MED EST CLINIC OF PATIENT [place] 18-39 YRS OFFICE 06329 A Domonique Byrd OUTPATIEN 0 0 TRICIA ZHU T VISIT PSC 15 MINUTES OFFICE 17553 A Domonique Byrd OUTPATIEN 0 0 TRICIA ZHU T VISIT PSC 15 MINUTES OFFICE 24571 Rochelle Byrd OUTPATIEN 0 0 TRICIA ZHU T VISIT PSC 15 MINUTES EMERGENCY 95101 [facility]VIS 0 0 [facility] T VISIT LOW/MODER SEVERITY EMERGENCY 81601 ALF [place] BAB 0 0 EMERGENCY DEPARTMEN SERVICES T VISIT MODERATE SEVERITY HOSPITAL JARVIS - 0 0 [facility] T OFFICE 95986 [facility] OUTPATI[facility] 0 0 [facility] T VISIT CLINIC OF 15 [place] MINUTES OFFICE 80487 [facility], OUTPATIEN 0 0 [facility] T VISIT CLINIC OF 15 MINUTES [facility] OFFICE 51518 Rochelle CLARKE, Rochelle OUTPATIEN 0 0 TRICIA Youssef T VISIT PSC 15 MINUTES EMERGENCY 89290 JARVIS 0 0 [facility] DEPARTMEN INC T VISIT LOW/MODER SEVERITY HOSPITAL JARVIS - 0 0 [facility] T EMERGENCY 80234 ALF LAFLEUR 0 0 EMERGENCY III, DEPARTMEN SERVICES MARY CARMEN T VISIT HIGH/URGE ASSOCIATE NT S SEVERITY OFFICE 18300 Rochelle SPENCER OUTPATIEN 0 0 TRICIA Youssef T VISIT PSC 15 MINUTES OFFICE 86984 [facility]AN [facility]AN CONSULTAT 0 0 JR TINAJERO ION CHARLES F CHARLES F NEW/ESTAB PATIENT 80 MIN EMERGENCY 60470 [facility] DEPT 0 0 [facility] VISIT INC HIGH SEVERITY& [facility]ARVIS - 0 0 [facility] T EMERGENCY 05064 ALF [place], 0 0 EMERGENCY NATALIE DEPARTMEN SERVICES O T VISIT HIGH/URGE ASSOCIATE NT S SEVERITY EMERGENCY 51396 [facility]VIS 0 0 [facility] DE[facility] INC T VISIT LOW/MODER SEVERITY HOSPITAL JARVIS - 0 0 [facility] INC T PERIODIC 23350 JARVIS [place] PREVENTIV 0 0 [facility] PATIENT 18-39 YRS OFFICE 95294 [facility], OUTPATIEN 9 9 [facility] J T VISIT CLINIC OF 25 MINUTES [facility] OFFICE 81512 Rochelle SPENCERPATIGRETA 9 9 TRICIA Youssef T VISIT [facility] 15 MINUTES [facility]OS[facility] - 9 9 [facility] OUT[facility]IEN INC T EMERGENCY [id number] [facility] MEDEL 9 9 [facility] T VISIT MODERATE ASSOCIATE SEVERITY S EMERGENCY [id number] JARVIS 9 9 [facility] DEPARTMEN INC T VISIT LIMITED/M INOR [facility] JARVIS - 9 9 [facility] OUTPATIEN INC T OFFICE [id number] Rochelle SPENCERPATIGRETA 9 9 TRICIA Yousesf T VISIT PSC 15 MINUTES OFFICE 95870 [facility], [facility] 9 9 [facility] T VISIT CLINIC OF 15 MINUTES [facility] JARVIS - 9 9 [facility] OUTPATIEN INC T OFFICE [id number] [facility], [facility] 9 9 [facility] J T VISIT CLINIC OF 15 MINUTES [facility] OFFICE [id number] [facility], OUTPATIEN 9 9 [facility] J T VISIT CLINIC OF 15 MINUTES [facility] JARVIS - 9 9 [facility] OUTPATIEN INC T EMERGENCY [id number] JARVIS 9 9 [facility] DEPARTMEN INC T VISIT LIMITED/M INOR PROB OFFICE 95053 PEBBLES GAUTAM 9 9 TRICIA MOREL T VISIT PSC 15 MINUTES OFFICE 57178 [facility]/CO JARVIS ROGEL 9 9 HEALTH [facility] HE[facility] T VISIT [facility] 25 BANK ACCT MINUTES OFFICE 94043 [facility] OUTPATIEN 8 8 DON R DON R T NEW 20 MINUTES OFFICE 53621 PEBBLES GAUTAM 8 8 TRICIA MOREL T VISIT [facility] 15 MINUTES OFFICE 09503 Rochelle SPENCER 8 8 TRICIA Corona VISIT [facility] 15 MINUTES HOSPITAL JARVIS - 8 8 [facility] OUTPATIEN INC T EMERGENCY 10257 JARVIS JAQUEZ, 8 8 [facility] T VISIT PROF SERV MODERATE SEVERITY EMERGENCY [id number] JARVIS 8 8 [facility] INC T VISIT MODERATE SEVERITY
--- OUTSIDE RECORDS SUMMARY | 2017-02-05 14:57 | External Medical Summary Rpt ---
Author Author , Organization [employer] Address Unknown Phone Unavailable Purpose Continuity of Care Document - 06-14-1999 through 2016 Immunization Name Date Route CVX Reacti Commen Provid Is Given on t er Refuse d Td Histor H149 No (adult 2004 ical ), Inform adsorb ation ed - Source Unspec ified Hep B, Histor H149 No adol 1998 ical High Inform Ris ation - Source Unspec ified MMR Histor H149 No 1998 ical Inform ation - Source Unspec ified
== END 2017-02-05 13:00 | disposition left against medical advice (07) ==
LOC: ER 12:54
DX: Z53.29 Procedure and treatment not carried out because of patient's decision for other reasons (principal)

== ENCOUNTER → 2017-05-30 | Outpatient (CLI) | payer MEDICAID ==
[~2017-05-30] MED LIST changes: +CARBAMAZEPINE100 M1 PO; +VENLAFAXINE HY150 MG PO
--- NOTE | 2017-05-30 16:41 | RADIOLOGY REPORT PS360 ---
US PELVIS-TRANSVAGINAL ONLY HISTORY: HEAVY BLEEDING ORDERING PHYSICIAN: Jorge Sinclair MD PATIENT AGE: 32 years COMPARISON: None FINDINGS: UTERUS: The uterus measures 8 x 3.5 x 4 cm. Combined endometrial thickness is 6 mm. No obvious uterine mass RIGHT OVARY: 3 x 2 cm containing small follicles LEFT OVARY: 3.7 x 2 cm containing small follicles and a 2 cm cyst CUL-DE-SAC FLUID: No cul-de-sac fluid apparent OTHER FINDINGS: Bilateral ovarian blood flow is present IMPRESSION: Small left ovarian cyst otherwise negative pelvic ultrasound
== END ==
LOC: RAD 15:23
DX: N92.0 Excessive and frequent menstruation with regular cycle (principal)

== ENCOUNTER 2017-06-19 13:37 | Emergency (ER) | payer MEDICAID ==
[~2017-06-19] VITALS: Ht 162.6 cm; Wt 61.2 kg
--- OUTSIDE RECORDS SUMMARY | 2017-06-19 13:52 | External Medical Summary Rpt | CCD ---
Author Author , BERRY SMART Address Unknown Phone [email or web address] Support Name Relationship Address Phone JARON, Next Of Kin [address] [place], [phone] [place] [address] Purpose Continuity of Care Document - 04-17-2013 through 2016 Problems Code Diagnosis DOS Provider Status F14.10 COCAINE ABUSE, UNCOMPLICAT ED F45.8 OTHER SOMATOFORM DISORDERS R10.9 UNSPECIFIED ABDOMINAL PAIN R20.2 PARESTHESIA OF SKIN R20.9 UNSPECIFIED DISTURBANCE S OF SKIN SENSATION S93.401A SPRAIN OF UNSPECIFIED LIGAMENT OF RIGHT ANKLE, INIT ENCNTR T18.9XXA FOREIGN BODY OF ALIMENTARY TRACT, PART UNSP, INIT ENCNTR T50.901A POISONING BY UNSP DRUG/MEDS/B IOL SUBST, ACCIDENTAL, INIT Z53.21 PROC/TRTMT NOT CRD OUT D/T PT LV BEF SEEN BY [facility] Allergies, Adverse Reactions, Alerts Type [...] ia de te s n re d NI 00 09 0 No CO 06 [...] /2 ve 4H R PA TC H Vital Signs 04-17-2013 06:50 Name Value Interpretat [...] complet Qn 013 ed Auto 04:05 MEAN 09-12-2 35.0 31.8-35 complet CORPUSC 013 g/dl .4 ed ULAR 04:05 HGB CONC RDW RBC 04-17- 14.0 % 11.5-17 complet Auto 013 .5 ed 04:05 Platele 04-17-2 228 142-424 complet t Bld 013 K/mm3 ed Ql 04:05 Manual MEAN 7.9 fl 7.4-10. complet PLATELE 013 4 ed T 04:05 VOLUME Granulo 04-17-2 70.6 % 37.0-80 complet cytes 013 .0 ed Fr Bld 04:05 Auto LYMPH % 04-17-2 21.4 % 10-50.0 complet 013 ed 04:05 Monocyt 04-17-2 6.2 % 1.7-9.3 complet es Fr 013 ed Bld 04:05 Auto Eosinop 04-17-2 1.6 % 0.1-12. complet hil Fr 013 0 ed Bld 04:05 Auto Basophi 04-17-2 0.2 % 0.1-2.0 complet ls Fr 013 ed Bld 04:05 Auto Granulo 04-17-2 8.2 1.8-7.8 complet cytes # 013 K/mm3 ed Bld 04:05 Auto Lymphoc 04-17-2 2.5 0.7-4.5 complet ytes Fr 013 K/mm3 ed Bld 04:05 Auto Monocyt 04-17-2 0.7 0.1-1.0 complet es # 013 K/mm3 ed Bld 04:05 Auto Eosinop 12-2 0.2 0.0-0.4 complet hil # 013 K/mm3 ed Bld 04:05 Auto Basophi 12-2 0.0 0-0.2 complet ls # 013 K/MM3 ed Bld 04:05 Auto URINALYSIS/COMPLETE (04-17-2013 03:55) URINE 04-17-2 YELLOW YELLOW complet COLOR 013 ed 03:55 URINE CLEAR CLEAR complet APPEARA 013 ed NCE 03:55 URINE 04-17-2 NEGATIV NEG complet GLUCOSE 013 E ed - 03:55 DIPSTIC K URINE 04-17- NEGATIV NEG complet BILIRUB 013 E ed IN - 03:55 DIPSTIC K URINE 09-12-2 NEGATIV NEG complet KETONE 013 E mg/dL ed 03:55 URINE 04-17-2 1.010 1.005-1 complet SPECIFI 013 UNK .030 ed C 03:55 GRAVITY URINE TRACE-I NEG complet BLOOD 013 NTACT ed 03:55 URINE 04-17- 5.5 UNK 5.0-8.5 complet PH 013 ed 03:55 URINE NEGATIV NEG complet PROTEIN 013 E mg/dL ed - 03:55 DIPSTIC K URINE 04-17- 0.2 NEG complet UROBILI 013 E.U./dL ed NOGEN - 03:55 DIPSTIC K URINE NEGATIV NEG complet NITRATE 013 E ed - 03:55 DIPSTIC K URINE NEGATIV NEG complet LEUK 013 E ed ESTERAS 03:55 E URINE 04-17- 3-5 0 complet RBC 013 rbc/hpf ed 03:55 URINE 04-17- OCC O complet WBC 013 wbc/hpf ed 03:55 URINE 10-20 0-5 complet SQUAMOU 013 #/hpf ed S CELLS 03:55 URINE 04-17-2 OCC O complet BACTERI 013 ed A 03:55 URINE 04-17-2 OCC OCC complet MUCUS 013 ed 03:55 AMNISURE RUPTURE TEST (04-17-2013 03:27) AMNISUR 04-17- POSITIV complet E 013 E- ed 03:27 RUPTURE RUPTURE D TEST Encounters Encounter Start End Date Code Location Performer Type Date Inpatient IMP Nikos Sinclair MD ([place]) 3 03:09 3 11:50 [facility]
--- OUTSIDE RECORDS SUMMARY | 2017-06-19 13:52 | External Medical Summary Rpt | CCD ---
Author Author , BERRY SMART Address Unknown Phone [email or web address] Support Name Relationship Address Phone JARON, Next Of Kin [address] [place], [phone] [place] [address] Purpose Continuity of Care Document - 04-17-2013 [...] OUT D/T PT LV BEF SEEN BY [facility] Allergies, Adverse Reactions, Alerts [...] Sinclair MD ([place]) 3 03:09 3 11:50 [facility]
--- OUTSIDE RECORDS SUMMARY | 2017-06-19 13:53 | External Medical Summary Rpt | CCD ---
Author Author [employer] Organization [employer] Address Unknown Phone Unavailable Purpose Continuity of Care Document - through 2016
--- OUTSIDE RECORDS SUMMARY | 2017-06-19 13:53 | External Medical Summary Rpt | CCD ---
Author Author , BERRY SMART Address Unknown Phone [email or web address] Immunization Name Date Rout CVX Reac Dose Comm Prov Is Faci e tion ent ider Refu lity Give sed n Td 03-0 9 999 Hist H149 No H149 (gopi 3-20 oric lt), 05 al Info adso rmat rbed ion - Sour ce Unsp ecif ied MMR 11-0 3 999 Hist H149 No H149 -19 oric 99 al Info rmat ion - Sour ce Unsp ecif ied Hep 11-0 42 999 Hist H149 No H149 B, 04-24 oric adol 99 al Info High rmat Ris ion - Sour ce Unsp ecif ied
--- OUTSIDE RECORDS SUMMARY | 2017-06-19 13:53 | External Medical Summary Rpt | CCD ---
Author Author , BERRY SMART Address Unknown Phone [email or web address] Immunization Name Date Rout CVX Reac Dose [...]
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
[2017-06-19 15:45] LABS: URINE BLOOD NEGATIVE (NEG)
[2017-06-19 15:46] LABS: HEMOGLOBIN 14.7 g/dL (12.2-16.2); LYMPH # 2.3 K/mm3 (0.7-4.5); LYMPH % 30.5 % (10-50.0)
[2017-06-19 15:52] LABS: AMPHETAMINES/METAMPHETAMINES POSITIVE ng/mL (<1000)
[2017-06-19 15:54] LABS: URINE BILIRUBIN - DIPSTICK 1+ (NEG)
[2017-06-19 15:57] LABS: URINE SQUAMOUS CELLS TNTC #/hpf (0-5)
[2017-06-19 16:27] LABS: FREE THYROXIN INDEX 12.1 ug/dl (5.93-13.13)
[2017-06-19 16:50] VITALS: BP 106/76
== END 2017-06-19 16:50 | disposition left against medical advice (07) ==
LOC: ER 13:37 → UTC 13:50 → ER 13:50
PROVIDERS: Emergency Medicine
DX: F19.10 Other psychoactive substance abuse, uncomplicated (principal); Z53.21 Procedure and treatment not carried out due to patient leaving prior to being seen by health care provider; F32.9 Major depressive disorder, single episode, unspecified; Z91.128 Patient's intentional underdosing of medication regimen for other reason; T76.11XA Adult physical abuse, suspected, initial encounter; F15.10 Other stimulant abuse, uncomplicated; Z88.5 Allergy status to narcotic agent